=== PATIENT | male | born 1960 | race Caucasian/White ===

== ENCOUNTER 2022-08-12 05:55 | Outpatient (CLI) | payer BC, SELFPAY | END 2022-08-12 05:56 | disposition home or self-care (01) | LOC: AMB 08-14 06:42 | PROVIDERS: Visit Provider Internal Medicine | DX: R10.9 Unspecified abdominal pain (principal); R06.02 Shortness of breath | CPT/HCPCS: A0425; A0427 ==

== ENCOUNTER 2022-08-12 06:17 | Observation (INO) | payer BC, SELFPAY ==
[2022-08-12] VITALS (30 sets, daily range): BP systolic 119–142; BP diastolic 75–91; PULSE 62–98; RESP 20–24; TEMP 36.7–37.1; O2SAT 90–97; BMI 34.9
--- NOTE | 2022-08-12 06:27 | ED.ABDPAIN ---
HPI - Abdominal Pain General Chief Complaint: Abdominal Pain <Zach Truong MD - Last Filed: 08/12/22 06:36> Stated Complaint: Abdominal pain <Zach Turong MD - Last Filed: 08/12/22 06:36> Time Seen by Provider: 08/12/22 06:25 <Zach Truong MD - Last Filed: 08/12/22 06:36> History of Present Illness HPI narrative: Pt is a 61 year old gentleman who has a history of alcoholic cirrhosis who presents with 5 hours of mid abd pain. He has not smoked or drank alcohol for many years. Pt states that the pain is severe and does radiate to the midchest. Pt has had no fever or chills. No nausea, vomiting or change in his stools. Pt states the pain is sharp. He has had some minor shortness of breath as well. Pt does not take any prescription medications per his report and has been focusing on clean living. Pt had similar pain 3 weeks ago which lasted one day and went away on its own. Pt otherwise has been feeling fairly well. <Zach Truong MD - Last Filed: 08/12/22 06:36> Related Data Home Medications: Home Medications Medication Instructions Recorded Confirmed No Known Home Medications 08/12/22 08/12/22 <Zach Truong MD - Last Filed: 08/12/22 06:36> Allergies/Adverse Reactions: Allergies Allergy/AdvReac Type Severity Reaction Status Date / Time No Known Drug Allergies Allergy Verified 08/12/22 06:46 <Zach Truong MD - Last Filed: 08/12/22 06:36> Review of Systems Status of ROS Reports: 10 or more systems reviewed and unremarkable except as noted in History and below <Zach rTuong MD - Last Filed: 08/12/22 06:36> [facility] Medical History: Medical History Alcoholic cirrhosis <Zach Truong MD - Last Filed: 08/12/22 06:36> Social History: Social History Smoking Status: Former smoker Do you use any of these nicotine containing products: None Second hand tobacco smoke exposure: No How often do you have a drink containing alcohol: never How often do you have six or more drinks on one occasion: Never AUDIT-C Alcohol total score: 0 Non-prescribed substance use: denies use <Zach Truong MD - Last Filed: 08/12/22 06:36> Exam Narrative: Exam Narrative: EXAM GENERAL: Patient appears somewhat disheveled. EYES: No scleral icterus. LYMPH: No supraclavicular or cervical lymphadenopathy. SKIN: Visible skin seen during exam normal or with benign process only. EXT: No dependent lower extremity pedal edema. HEART: Regular rate and rhythm with no murmurs, rubs, or gallops. Distant heart tones LUNGS: Clear to auscultation bilaterally with no crackles or wheezes. Decreased breath sounds bilaterally ABD: Obese and distended with hypoactive bowel sounds noted. PSYCH: Good eye contact, speech is not pressured. <Zach Truong MD - Last Filed: 08/12/22 06:36> Const: Vital Signs, click to edit/add: Vital Signs - 24 hr 08/12/22 06:26 08/12/22 06:41 08/12/22 06:43 Temperature 98.1 F Pulse Rate 83 Pulse Rate [Right Pulse Oximeter] 98 80 Respiratory Rate 22 20 Blood Pressure Blood Pressure [Le ft Upper Arm] 134/87 124/77 Pulse Oximetry 97 96 96 Oxygen Delivery Me thod Room Air Room Air 08/12/22 06:45 08/12/22 07:00 08/12/22 07:02 Temperature Pulse Rate 88 77 84 Pulse Rate [Right Pulse Oximeter] Respiratory Rate Blood Pressure 121/75 Blood Pressure [Le ft Upper Arm] Pulse Oximetry 96 95 96 Oxygen Delivery Me thod 08/12/22 07:03 08/12/22 07:15 08/12/22 07:32 Temperature Pulse Rate 74 77 87 Pulse Rate [Right Pulse Oximeter] Respiratory Rate Blood Pressure Blood Pressure [Le ft Upper Arm] Pulse Oximetry 96 96 95 Oxygen Delivery Me thod 08/12/22 07:45 08/12/22 08:00 08/12/22 08:05 Temperature Pulse Rate 74 71 73 Pulse Rate [Right Pulse Oximeter] Respiratory Rate Blood Pressure Blood Pressure [Le ft Upper Arm] Pulse Oximetry 95 95 94 Oxygen Delivery Me thod 08/12/22 08:15 08/12/22 08:22 08/12/22 08:31 Temperature Pulse Rate 72 74 69 Pulse Rate [Right Pulse Oximeter] Respiratory Rate Blood Pressure 132/85 Blood Pressure [Le ft Upper Arm] Pulse Oximetry 96 97 95 Oxygen Delivery Me thod 08/12/22 08:32 08/12/22 08:45 08/12/22 09:00 Temperature Pulse Rate 71 62 71 Pulse Rate [Right Pulse Oximeter] Respiratory Rate Blood Pressure 133/91 H Blood Pressure [Le ft Upper Arm] Pulse Oximetry 95 95 95 Oxygen Delivery Me thod 08/12/22 09:02 08/12/22 09:15 08/12/22 09:30 Temperature Pulse Rate 72 78 68 Pulse Rate [Right Pulse Oximeter] Respiratory Rate Blood Pressure 134/90 H Blood Pressure [Le ft Upper Arm] Pulse Oximetry 94 95 93 Oxygen Delivery Me thod 08/12/22 09:32 08/12/22 09:45 08/12/22 10:00 Temperature Pulse Rate 73 72 74 Pulse Rate [Right Pulse Oximeter] Respiratory Rate Blood Pressure 142/86 H Blood Pressure [Le ft Upper Arm] Pulse Oximetry 95 97 97 Oxygen Delivery Me thod 08/12/22 10:02 Temperature Pulse Rate 66 Pulse Rate [Right Pulse Oximeter] Respiratory Rate Blood Pressure 136/85 Blood Pressure [Le ft Upper Arm] Pulse Oximetry 97 Oxygen Delivery Me thod <Zach Truong MD - Last Filed: 08/12/22 06:36> Vital Signs, click to edit/add: Vital Signs - 24 hr 08/12/22 06:26 08/12/22 06:41 08/12/22 06:43 Temperature 98.1 F Pulse Rate 83 Pulse Rate [Right Pulse Oximeter] 98 80 Respiratory Rate 22 20 Blood Pressure Blood Pressure [Le ft Upper Arm] 134/87 124/77 Pulse Oximetry 97 96 96 Oxygen Delivery Me thod Room Air Room Air 08/12/22 06:45 08/12/22 07:00 08/12/22 07:02 Temperature Pulse Rate 88 77 84 Pulse Rate [Right Pulse Oximeter] Respiratory Rate Blood Pressure 121/75 Blood Pressure [Le ft Upper Arm] Pulse Oximetry 96 95 96 Oxygen Delivery Me thod 08/12/22 07:03 08/12/22 07:15 08/12/22 07:32 Temperature Pulse Rate 74 77 87 Pulse Rate [Right Pulse Oximeter] Respiratory Rate Blood Pressure Blood Pressure [Le ft Upper Arm] Pulse Oximetry 96 96 95 Oxygen Delivery Me thod 08/12/22 07:45 08/12/22 08:00 08/12/22 08:05 Temperature Pulse Rate 74 71 73 Pulse Rate [Right Pulse Oximeter] Respiratory Rate Blood Pressure Blood Pressure [Le ft Upper Arm] Pulse Oximetry 95 95 94 Oxygen Delivery Me thod 08/12/22 08:15 08/12/22 08:22 08/12/22 08:31 Temperature Pulse Rate 72 74 69 Pulse Rate [Right Pulse Oximeter] Respiratory Rate Blood Pressure 132/85 Blood Pressure [Le ft Upper Arm] Pulse Oximetry 96 97 95 Oxygen Delivery Me thod 08/12/22 08:32 08/12/22 08:45 08/12/22 09:00 Temperature Pulse Rate 71 62 71 Pulse Rate [Right Pulse Oximeter] Respiratory Rate Blood Pressure 133/91 H Blood Pressure [Le ft Upper Arm] Pulse Oximetry 95 95 95 Oxygen Delivery Me thod 08/12/22 09:02 08/12/22 09:15 08/12/22 09:30 Temperature Pulse Rate 72 78 68 Pulse Rate [Right Pulse Oximeter] Respiratory Rate Blood Pressure 134/90 H Blood Pressure [Le ft Upper Arm] Pulse Oximetry 94 95 93 Oxygen Delivery Me thod 08/12/22 09:32 08/12/22 09:45 08/12/22 10:00 Temperature Pulse Rate 73 72 74 Pulse Rate [Right Pulse Oximeter] Respiratory Rate Blood Pressure 142/86 H Blood Pressure [Le ft Upper Arm] Pulse Oximetry 95 97 [facility] 10[facility]02 Temperature Pulse Rate 66 Pulse Rate [Right Pulse Oximeter] Respiratory Rate Blood Pressure 136/85 Blood Pressure [Le ft Upper Arm] Pulse Oximetry 97 Oxygen Delivery Me thod <Tanya Nobles MD - Last Filed: 08/12/22 11:28> Course Course Hospital Course: CT Chest PE study as well as abd and pelvis ordered as well as CBC, CMP, Amylase, Lactate, Urinalysis, Troponin, EKG, PT, PTT <Zach Truong MD - Last Filed: 08/12/22 06:36> Reevaluation(s) Reevaluation #1: Received sign-out for care this patient. CT scan done for diffuse pain showed distended gallbladder with multiple gallstones. Therefore proceed with right upper quadrant ultrasound. Ultrasound showed an enlarged gallbladder. I spoke to our surgeon Dr. Murrell, felt that the absence of stones was likely due to the size of the gallbladder. given that there is no evidence of cholecystitis, she did recommend that he be treated, however not necessarily emergently. I also spoke to our hospitalist Dr. Morales who was able to look through the patient's previous records-looks like he has had chronic abdominal pain for about a decade with multiple GI visits in the past. I spoke to the patient about his findings today and he told me that he has a hard time getting around at home given that he has chronic knee pain and back pain. He tells me that his house is very messy. Per nursing, patient arrived he was covered in feces. He tells me that he has a very difficult time making it to the bathroom. He does not have any friends or family in the area aside from 1 sister who sometimes is involved by visiting him. Had nursing ambulate the patient, he is able to take a couple steps by himself which are very labored, and then he needs assistance. At this time, I do not feel it is safe for the patient to go home as he is a fall risk and sounds like he has been having failure to thrive by himself at home. <Tanya Nobles MD - Last Filed: 08/12/22 11:28> Vital Signs Vital signs: Initial Vital Signs Temperature 98.1 F 08/12/22 06:26 Temperature Source Temporal Artery Scan 08/12/22 06:26 Pulse Rate 98 08/12/22 06:26 Pulse Rhythm 08/12/22 06:26 Respiratory Rate 22 08/12/22 06:26 Blood Pressure 134/87 08/12/22 06:26 Blood Pressure Mean 102 08/12/22 06:26 Blood Pressure Position Supine 08/12/22 06:26 Pulse Oximetry 97 08/12/22 06:26 Oxygen Delivery Method 08/12/22 06:26 Vital Signs Temperature 98.1 F 08/12/22 06:26 Pulse Rate 98 08/12/22 06:26 Respiratory Rate 22 08/12/22 06:26 Blood Pressure 134/87 02/18/23 06:26 Pulse Oximetry 97 08/12/22 06:26 Oxygen Delivery Method 08/12/22 06:26 Temperature 98.1 F 08/12/22 06:26 Pulse Rate 66 08/12/22 10:02 Respiratory Rate 20 08/12/22 06:41 Blood Pressure 136/85 08/12/22 10:02 Pulse Oximetry 97 08/12/22 10:02 Oxygen Delivery Method 08/12/22 06:41 <Zach Truong MD - Last Filed: 08/12/22 06:36> Initial Vital Signs Temperature 98.1 F 08/12/22 06:26 Temperature Source Temporal Artery Scan 08/12/22 06:26 Pulse Rate 98 08/12/22 06:26 Pulse Rhythm 08/12/22 06:26 Respiratory Rate 22 08/12/22 06:26 Blood Pressure 134/87 08/12/22 06:26 Blood Pressure Mean 102 08/12/22 06:26 Blood Pressure Position Supine 08/12/22 06:26 Pulse Oximetry 97 08/12/22 06:26 Oxygen Delivery Method 08/12/22 06:26 Vital Signs Temperature 98.1 F 08/12/22 06:26 Pulse Rate 98 08/12/22 06:26 Respiratory Rate 22 08/12/22 06:26 Blood Pressure 134/87 08/12/22 06:26 Pulse Oximetry 97 08/12/22 06:26 Oxygen Delivery Method 08/12/22 06:26 Temperature 98.1 F 08/12/22 06:26 Pulse Rate 66 08/12/22 10:02 Respiratory Rate 20 08/12/22 06:41 Blood Pressure 136/85 08/12/22 10:02 Pulse Oximetry 97 08/12/22 10:02 Oxygen Delivery Method 08/12/22 06:41 <Tanya Nobles MD - Last Filed: 08/12/22 11:28> MDM - Abdominal Pain MDM Narrative Medical decision making narrative: Chronic abdominal pain, gallstones, failure to thrive at home. At this time patient will be admitted for failure to thrive. Dr. Morales graciously accepted. <Tanya Nobles MD - Last Filed: 08/12/22 11:28> Medical Records Attestation: I reviewed the patient's medical records. <Tanya Nobles MD - Last Filed: 08/12/22 11:28> Lab Data Attestation: I reviewed the patient's lab results. <Tanya Nobles MD - Last Filed: 08/12/22 11:28> Labs: Lab Results 08/12/22 08/12/22 08/12/22 Range/Units 06:35 06:35 06:35 WBC 5.37 (4.50-11.00) K/uL RBC 4.68 (4.30-5.90) m/uL Hgb 14.4 (13.5-17.5) gm/dL Hct 44.4 (37.0-53.0) % MCV 95 (80-100) fL MCH 31 (26-34) pg MCHC 32 (32-36) gm/dL RDW Coeff of Cale 17.5 H (11.5-15.5) % Plt Count 107 L (140-440) K/uL Neut % (Auto) 52.6 (42.0-72.0) % Lymph % (Auto) 32.0 (20-44) % [place] % (Auto) 9.9 (0.0-11.0) % Eos % (Auto) 4.7 (0.0-7.0) % Baso % (Auto) 0.6 (0.0-3.0) % Neut # (Auto) 2.83 (1.7-7.0) K/uL Lymph # (Auto) 1.72 (0.90-2.90) K/uL [place] # (Auto) 0.50 (0.00-0.90) K/UL Eos # (Auto) 0.25 (0.00-0.50) K/uL Baso # (Auto) 0.03 (0.00-0.30) K/uL INR (0.91-1.10) APTT (23-33) Seconds Sodium 141 (135-149) mmol/L Potassium 4.2 (3.6-5.1) mmol/L Chloride 112 (96-114) mmol/L Carbon Dioxide 25 (20-32) mmol/L BUN 9 (7-30) mg/dL Creatinine 0.5 (0.5-1.5) mg/dL Estimated GFR 116 ml/min Glucose 132 H (60-115) mg/dL Lactate 2.0 H (0.5-1.9) mmol/L Calcium 8.7 (8.4-10.6) mg/dL Total Bilirubin 1.0 (0.1-1.5) mg/dL AST 83 H (12-35) U/L ALT 51 H (4-50) U/L Alkaline Phosphatase 111 (40-150) U/L Troponin I < 0.01 L (0.01-0.04) ng/mL NT-Pro-B Natriuret Pep pg/mL Total Protein 8.4 H (6.0-8.3) g/dL Albumin 3.3 (3.3-5.0) g/dL Amylase (18-89) U/L Lipase (23-300) U/L Urine Color (Yellow) Urine Appearance (Clear) Urine pH (5.0-8.5) Ur Specific [place] (1.000-1.030) Urine Protein (Negative) Urine Glucose (UA) (Negative) Urine Ketones (Negative) Urine Blood (Negative) Urine Nitrite (Negative) Urine Bilirubin (Negative) Urine Urobilinogen (0.2-1.0) Ur Leukocyte Esterase (Negative) Urine RBC (0-2) Urine WBC (0-5) Ur Squamous Epith Cells (None-Few) Urine Bacteria (None) 08/12/22 08/12/22 08/12/22 Range/Units 06:35 06:35 06:35 WBC (4.50-11.00) K/uL RBC (4.30-5.90) m/uL Hgb (13.5-17.5) gm/dL Hct (37.0-53.0) % MCV (80-100) fL MCH (26-34) pg MCHC (32-36) gm/dL RDW Coeff of Cale (11.5-15.5) % Plt Count (140-440) K/uL Neut % (Auto) (42.0-72.0) % Lymph % (Auto) (20-44) % [place] % (Auto) (0.0-11.0) % Eos % (Auto) (0.0-7.0) % Baso % (Auto) (0.0-3.0) % Neut # (Auto) (1.7-7.0) K/uL Lymph # (Auto) (0.90-2.90) K/uL [place] # (Auto) (0.00-0.90) K/UL Eos # (Auto) (0.00-0.50) K/uL Baso # (Auto) (0.00-0.30) K/uL INR 1.16 H (0.91-1.10) APTT 30 (23-33) Seconds Sodium (135-149) mmol/L Potassium (3.6-5.1) mmol/L Chloride (96-114) mmol/L Carbon Dioxide (20-32) mmol/L BUN (7-30) mg/dL Creatinine (0.5-1.5) mg/dL Estimated GFR ml/min Glucose (60-115) mg/dL Lactate (0.5-1.9) mmol/L Calcium (8.4-10.6) mg/dL Total Bilirubin (0.1-1.5) mg/dL AST (12-35) U/L ALT (4-50) U/L Alkaline Phosphatase (40-150) U/L Troponin I (0.01-0.04) ng/mL NT-Pro-B Natriuret Pep pg/mL Total Protein (6.0-8.3) g/dL Albumin (3.3-5.0) g/dL Amylase 97 H (18-89) U/L Lipase 287 (23-300) U/L Urine Color (Yellow) Urine Appearance (Clear) Urine pH (5.0-8.5) Ur Specific [place] (1.000-1.030) Urine Protein (Negative) Urine Glucose (UA) (Negative) Urine Ketones (Negative) Urine Blood (Negative) Urine Nitrite (Negative) Urine Bilirubin (Negative) Urine Urobilinogen (0.2-1.0) Ur Leukocyte Esterase (Negative) Urine RBC (0-2) Urine WBC (0-5) Ur Squamous Epith Cells (None-Few) Urine Bacteria (None) 08/12/22 08/12/22 08/12/22 Range/Units 06:35 09:49 10:30 WBC (4.50-11.00) K/uL RBC (4.30-5.90) m/uL Hgb (13.5-17.5) gm/dL Hct (37.0-53.0) % MCV (80-100) fL MCH (26-34) pg MCHC (32-36) gm/dL RDW Coeff of Cale (11.5-15.5) % Plt Count (140-440) K/uL Neut % (Auto) (42.0-72.0) % Lymph % (Auto) (20-44) % [place] % (Auto) (0.0-11.0) % Eos % (Auto) (0.0-7.0) % Baso % (Auto) (0.0-3.0) % Neut # (Auto) (1.7-7.0) K/uL Lymph # (Auto) (0.90-2.90) K/uL [place] # (Auto) (0.00-0.90) K/UL Eos # (Auto) (0.00-0.50) K/uL Baso # (Auto) (0.00-0.30) K/uL INR (0.91-1.10) APTT (23-33) Seconds Sodium (135-149) mmol/L Potassium (3.6-5.1) mmol/L Chloride (96-114) mmol/L Carbon Dioxide (20-32) mmol/L BUN (7-30) mg/dL Creatinine (0.5-1.5) mg/dL Estimated GFR ml/min Glucose (60-115) mg/dL Lactate 1.2 (0.5-1.9) mmol/L Calcium (8.4-10.6) mg/dL Total Bilirubin (0.1-1.5) mg/dL AST (12-35) U/L ALT (4-50) U/L Alkaline Phosphatase (40-150) U/L Troponin I (0.01-0.04) ng/mL NT-Pro-B Natriuret Pep < 20 pg/mL Total Protein (6.0-8.3) g/dL Albumin (3.3-5.0) g/dL Amylase (18-89) U/L Lipase (23-300) U/L Urine Color Yellow (Yellow) Urine Appearance Clear (Clear) Urine pH 7.0 (5.0-8.5) Ur Specific [place] 1.015 (1.000-1.030) Urine Protein Negative (Negative) Urine Glucose (UA) Negative (Negative) Urine Ketones Negative (Negative) Urine Blood Trace-intact A (Negative) Urine Nitrite Negative (Negative) Urine Bilirubin Negative (Negative) Urine Urobilinogen 0.2 (0.2-1.0) Ur Leukocyte Esterase Negative (Negative) Urine RBC 0-2 (0-2) Urine WBC 0-2 (0-5) Ur Squamous Epith Cells Few (None-Few) Urine Bacteria Few A (None) <Zach Truong MD - Last Filed: 08/12/22 06:36> Lab Results 08/12/22 08/12/22 08/12/22 Range/Units 06:35 06:35 06:35 WBC 5.37 (4.50-11.00) K/uL RBC 4.68 (4.30-5.90) m/uL Hgb 14.4 (13.5-17.5) gm/dL Hct 44.4 (37.0-53.0) % MCV 95 (80-100) fL MCH 31 (26-34) pg MCHC 32 (32-36) gm/dL RDW Coeff of [place]ale 17.5 H (11.5-15.5) % Plt Count 107 L (140-440) K/uL Neut % (Auto) 52.6 (42.0-72.0) % Lymph % (Auto) 32.0 (20-44) % [place] % (Auto) 9.9 (0.0-11.0) % Eos % (Auto) 4.7 (0.0-7.0) % Baso % (Auto) 0.6 (0.0-3.0) % Neut # (Auto) 2.83 (1.7-7.0) K/uL Lymph # (Auto) 1.72 (0.90-2.90) K/uL [place] # (Auto) 0.50 (0.00-0.90) K/UL Eos # (Auto) 0.25 (0.00-0.50) K/uL Baso # (Auto) 0.03 (0.00-0.30) K/uL INR (0.91-1.10) APTT (23-33) Seconds Sodium 141 (135-149) mmol/L Potassium 4.2 (3.6-5.1) mmol/L Chloride 112 (96-114) mmol/L Carbon Dioxide 25 (20-32) mmol/L BUN 9 (7-30) mg/dL Creatinine 0.5 (0.5-1.5) mg/dL Estimated GFR 116 ml/min Glucose 132 H (60-115) mg/dL Lactate 2.0 H (0.5-1.9) mmol/L Calcium 8.7 (8.4-10.6) mg/dL Total Bilirubin 1.0 (0.1-1.5) mg/dL AST 83 H (12-35) U/L ALT 51 H (4-50) U/L Alkaline Phosphatase 111 (40-150) U/L Troponin I < 0.01 L (0.01-0.04) ng/mL NT-Pro-B Natriuret Pep pg/mL Total Protein 8.4 H (6.0-8.3) g/dL Albumin 3.3 (3.3-5.0) g/dL Amylase (18-89) U/L Lipase (23-300) U/L Urine Color (Yellow) Urine Appearance (Clear) Urine pH (5.0-8.5) Ur Specific [place] (1.000-1.030) Urine Protein (Negative) Urine Glucose (UA) (Negative) Urine Ketones (Negative) Urine Blood (Negative) Urine Nitrite (Negative) Urine Bilirubin (Negative) Urine Urobilinogen (0.2-1.0) Ur Leukocyte Esterase (Negative) Urine RBC (0-2) Urine WBC (0-5) Ur Squamous Epith Cells (None-Few) Urine Bacteria (None) 08/12/22 08/12/22 08/12/22 Range/Units 06:35 06:35 06:35 WBC (4.50-11.00) K/uL RBC (4.30-5.90) m/uL Hgb (13.5-17.5) gm/dL Hct (37.0-53.0) % MCV (80-100) fL MCH (26-34) pg MCHC (32-36) gm/dL RDW Coeff of [place]ale (11.5-15.5) % Plt Count (140-440) K/uL Neut % (Auto) (42.0-72.0) % Lymph % (Auto) (20-44) % [place] % (Auto) (0.0-11.0) % Eos % (Auto) (0.0-7.0) % Baso % (Auto) (0.0-3.0) % Neut # (Auto) (1.7-7.0) K/uL Lymph # (Auto) (0.90-2.90) K/uL [place] # (Auto) (0.00-0.90) K/UL Eos # (Auto) (0.00-0.50) K/uL Baso # (Auto) (0.00-0.30) K/uL INR 1.16 H (0.91-1.10) APTT 30 (23-33) Seconds Sodium (135-149) mmol/L Potassium (3.6-5.1) mmol/L Chloride (96-114) mmol/L Carbon Dioxide (20-32) mmol/L BUN (7-30) mg/dL Creatinine (0.5-1.5) mg/dL Estimated GFR ml/min Glucose (60-115) mg/dL Lactate (0.5-1.9) mmol/L Calcium (8.4-10.6) mg/dL Total Bilirubin (0.1-1.5) mg/dL AST (12-35) U/L ALT (4-50) U/L Alkaline Phosphatase (40-150) U/L Troponin I (0.01-0.04) ng/mL NT-Pro-B Natriuret Pep pg/mL Total Protein (6.0-8.3) g/dL Albumin (3.3-5.0) g/dL Amylase 97 H (18-89) U/L Lipase 287 (23-300) U/L Urine Color (Yellow) Urine Appearance (Clear) Urine pH (5.0-8.5) Ur Specific [place] (1.000-1.030) Urine Protein (Negative) Urine Glucose (UA) (Negative) Urine Ketones (Negative) Urine Blood (Negative) Urine Nitrite (Negative) Urine Bilirubin (Negative) Urine Urobilinogen (0.2-1.0) Ur Leukocyte Esterase (Negative) Urine RBC (0-2) Urine WBC (0-5) Ur Squamous Epith Cells (None-Few) Urine Bacteria (None) 02/08/12/22 08/12/22 Range/Units 06:35 09:49 10:30 WBC (4.50-11.00) K/uL RBC (4.30-5.90) m/uL Hgb (13.5-17.5) gm/dL Hct (37.0-53.0) % MCV (80-100) fL MCH (26-34) pg MCHC (32-36) gm/dL RDW Coeff of [place]ale (11.5-15.5) % Plt Count (140-440) K/uL Neut % (Auto) (42.0-72.0) % Lymph % (Auto) (20-44) % [place] % (Auto) (0.0-11.0) % Eos % (Auto) (0.0-7.0) % Baso % (Auto) (0.0-3.0) % Neut # (Auto) (1.7-7.0) K/uL Lymph # (Auto) (0.90-2.90) K/uL [place] # (Auto) (0.00-0.90) K/UL Eos # (Auto) (0.00-0.50) K/uL Baso # (Auto) (0.00-0.30) K/uL INR (0.91-1.10) APTT (23-33) Seconds Sodium (135-149) mmol/L Potassium (3.6-5.1) mmol/L Chloride (96-114) mmol/L Carbon Dioxide (20-32) mmol/L BUN (7-30) mg/dL Creatinine (0.5-1.5) mg/dL Estimated GFR ml/min Glucose (60-115) mg/dL Lactate 1.2 (0.5-1.9) mmol/L Calcium (8.4-10.6) mg/dL Total Bilirubin (0.1-1.5) mg/dL AST (12-35) U/L ALT (4-50) U/L Alkaline Phosphatase (40-150) U/L Troponin I (0.01-0.04) ng/mL NT-Pro-B Natriuret Pep < 20 pg/mL Total Protein (6.0-8.3) g/dL Albumin (3.3-5.0) g/dL Amylase (18-89) U/L Lipase (23-300) U/L Urine Color Yellow (Yellow) Urine Appearance Clear (Clear) Urine pH 7.0 (5.0-8.5) Ur Specific [place] 1.015 (1.000-1.030) Urine Protein Negative (Negative) Urine Glucose (UA) Negative (Negative) Urine Ketones Negative (Negative) Urine Blood Trace-intact A (Negative) Urine Nitrite Negative (Negative) Urine Bilirubin Negative (Negative) Urine Urobilinogen 0.2 (0.2-1.0) Ur Leukocyte Esterase Negative (Negative) Urine RBC 0-2 (0-2) Urine WBC 0-2 (0-5) Ur Squamous Epith Cells Few (None-Few) Urine Bacteria Few A (None) <Tanya Nobles MD - Last Filed: 08/12/22 11:28> Imaging Data CT Chest/Ab/Pelvis: Attestation: I have reviewed the pertinent imaging results. <Tanya Nobles MD - Last Filed: 08/12/22 11:28> Radiologist's impression: CT examination of the chest, abdomen and pelvis was performed following the uneventful intravenous administration of 95 cc of Isovue 3 7. Thin section axial images were obtained from the thoracic inlet through the pubic symphysis.? Oral contrast was not administered. The chest portion of the examination was performed as a CT pulmonary angiogram. Please note that all CT scans at this facility use dose modulation, iterative reconstruction, and/or weight-based dosing when appropriate to reduce radiation dose to as low as reasonably achievable. FINDINGS: CHEST: There is no mediastinal or hilar adenopathy or mass. There is no pericardial effusion. There is mild fusiform dilatation of the ascending aorta at 3.9 centimeters. The lungs show no focal consolidation, infiltrate or mass. Trace basilar atelectasis. No pleural effusion or pneumothorax. PULMONARY ARTERY DISTRIBUTION: No finding of acute pulmonary embolus. ABDOMEN AND PELVIS: LIVER/BILIARY SYSTEM:Normal sized liver. No focal mass. Mild prominence of the caudate lobe and mild nodular configuration of the serosal contour is raising the possibility of cirrhosis.The gallbladder is significantly distended. There are numerous stones 1 which appears to be in the cystic duct. No wall thickening or pericholecystic fluid. Sonography is advised for further characterization ADRENALS: Normal KIDNEYS, URETERS and BLADDER:Kidneys normal in size. Low-density lesions noted probably cysts though too small to fully characterize. Right lower pole renal calculus but no evidence of current or recent obstructive uropathy. The bladder is unremarkable SPLEEN:Normal appearance. PANCREAS: Appears normal. RETROPERITONEUM and MESENTERY: There is no mass, adenopathy or aortic aneurysm. Atherosclerotic vascular calcifications GASTROINTESTINAL SYSTEM: There is no evidence of diverticulitis, colitis, mechanical obstruction, or appendicitis. The small bowel as visualized appears normal.Fecal retention. Diverticulosis. PELVIS: No mass, adenopathy or free fluid. OSSEOUS STRUCTURES and ABDOMINAL WALL: There is an age-appropriate appearance of the osseous structures.Ventral hernia pending fat. OTHER: No free fluid or free air. IMPRESSION: 1. CHEST: Trace basilar atelectasis. Mildly dilated ascending aorta 2. PULMONARY ARTERY DISTRIBUTION: No indication of acute pulmonary embolus. 3. ABDOMEN AND PELVIS: Significantly distended gallbladder but no wall thickening. Stones, including a stone like the in the cystic duct. Sonography is advised. Fecal retention. Diverticulosis. Fat containing ventral hernia. 4. Other incidental nonacute appearing findings as above <Tanya Nobles MD - Last Filed: 08/12/22 11:28> Ultrasound abdomen: Attestation: I have reviewed the pertinent imaging results. <Tanya Nobles MD - Last Filed: 08/12/22 11:28> Radiologist's impression: INDICATION: Characterize gallstones seen on CT. COMPARISON: CT same date. FINDINGS: No gallbladder wall thickening. Common bile duct 5 mm at the hunter hepatis. No demonstrable stones. Size of gallbladder is enlarged with greatest documented length 13 cm. Difficult sonographic window due to body habitus and bowel gas. Known dependent stones from the CT are not demonstrated on this exam. No sonographic [place] sign but body habitus is limiting. IMPRESSION: 1. Enlarged gallbladder. No common bile duct dilatation. Known stones not seen on this exam. No findings for acute cholecystitis. Limited by body habitus and bowel gas. <Tanya Nobles MD - Last Filed: 08/12/22 11:28> ECG Data Attestation: I personally reviewed and interpreted this ECG as follows: (Normal sinus rhythm, right bundle-branch block, pulse 94) <Tanya Nobles MD - Last Filed: 08/12/22 11:28> Discharge Plan Discharge Clinical Impression: Adult failure to thrive, Abdominal pain, Cholelithiasis <Zach Truong MD - Last Filed: 08/12/22 06:36> Patient Disposition: Admitted As Inpatient <Zach Truong MD - Last Filed: 08/12/22 06:36> Condition: Stable <Zach Truong MD - Last Filed: 08/12/22 06:36> Additional Instructions: You need to have an outpatient appointment with a GI specialist to discuss your gallstones. Return to the ER if you develop vomiting or fevers. <Zach Truong MD - Last Filed: 08/12/22 06:36> Prescriptions: No Action No Known Home Medications <Zach Truong MD - Last Filed: 08/12/22 06:36> Follow Up/Referrals: Provider,Not a Local [Primary Care Provider] - <Zach Truong MD - Last Filed: 08/12/22 06:36> Stand Alone Forms: [facility] Info Instructions <Zach Truong MD - Last Filed: 08/12/22 06:36>
[2022-08-12 06:42] LABS: Basophils Absolute Auto 0.03 K/uL (0.00-0.30); Basophils Percent Auto 0.6 % (0.0-3.0); Eosinophils Absolute Auto 0.25 K/uL (0.00-0.50); Eosinophils Percent Auto 4.7 % (0.0-7.0); Hematocrit 44.4 % (37.0-53.0); Hemoglobin* 14.4 gm/dL (13.5-17.5); Immature Granulocytes Abs Auto 0.01 K/uL (0.00-0.30); Immature Granulocytes Pct Auto 0.2 %; Lymphocytes Absolute Auto 1.72 K/uL (0.90-2.90); Mean Corpuscular HGB Conc 32 gm/dL (32-36); Mean Corpuscular Hemoglobin 31 pg (26-34); Mean Corpuscular Volume 95 fL (80-100); Monocytes Percent Auto 9.9 % (0.0-11.0); Neutrophils Absolute Auto 2.83 K/uL (1.7-7.0); Neutrophils Percent Auto 52.6 % (42.0-72.0); Platelet Count* 107 K/uL (140-440); RDW Coefficient of Variation % 17.5 % (11.5-15.5); Red Blood Count 4.68 m/uL (4.30-5.90); White Blood Count* 5.37 K/uL (4.50-11.00)
[2022-08-12 06:44] LABS: Slide Review Reflex No
[2022-08-12] MEDS: KETOROLAC 30 MG/ML inj IVP (06:46)
[2022-08-12] MEDS: 0.9 % SODIUM CHLORIDE 1000 ml 1,000 ML IV (06:46)
[2022-08-12 07:01] LABS: Albumin* 3.3 g/dL (3.3-5.0); Chloride* 112 mmol/L (96-114); Partial Thromboplastin Time* 30 Seconds (23-33); Potassium* 4.2 mmol/L (3.6-5.1); Sodium* 141 mmol/L (135-149)
[2022-08-12 07:03] LABS: Creatinine* 0.5 mg/dL (0.5-1.5); Estimated Glomerular Filt Rate 116 ml/min
[2022-08-12 07:04] LABS: Alanine Aminotransferase* 51 U/L (4-50); Alkaline Phosphatase* 111 U/L (40-150); Aspartate Amino Transferase* 83 U/L (12-35); Blood Urea Nitrogen* 9 mg/dL (7-30); Calcium* 8.7 mg/dL (8.4-10.6); Carbon Dioxide* 25 mmol/L (20-32); Glucose* 132 mg/dL (60-115); Total Protein* 8.4 g/dL (6.0-8.3)
[2022-08-12 07:06] LABS: Prothrombin Time 15.5 Seconds
[2022-08-12 07:08] LABS: INR 1.16 (0.91-1.10)
[2022-08-12 07:19] LABS: Troponin I* < 0.01 ng/mL (0.01-0.04)
[2022-08-12 07:52] LABS: Lipase* 287 U/L (23-300)
[2022-08-12 07:53] LABS: Amylase* 97 U/L (18-89)
--- NOTE | 2022-08-12 08:07 | CRLHL7_ITS ---
For Patients: As a result of the Century Cures Act, medical imaging exams and procedure reports are released immediately into your electronic medical record. You may view this report before your referring provider. If you have questions, please contact your health care provider. INDICATION: Characterize gallstones seen on CT. COMPARISON: CT same date. FINDINGS: No gallbladder wall thickening. Common bile duct 5 mm at the hunter hepatis. No demonstrable stones. Size of gallbladder is enlarged with greatest documented length 13 cm. Difficult sonographic window due to body habitus and bowel gas. Known dependent stones from the CT are not demonstrated on this exam. No sonographic [place] sign but body habitus is limiting. IMPRESSION: 1. Enlarged gallbladder. No common bile duct dilatation. Known stones not seen on this exam. No findings for acute cholecystitis. Limited by body habitus and bowel gas. Dictated by Christos Pearce MD @ 08/12/2022 9:13:36 AM (Electronically Signed)
[2022-08-12] MEDS: HYDROmorphone 0.5 mg/0.5 ml inj IVP (08:22)
--- NOTE | 2022-08-12 08:33 | ED.NURSE ---
Dr. Nobles updated Pt complaining of RLQ pain, back pain, and L knee pain.
--- NOTE | 2022-08-12 08:40 | ED.NURSE ---
call to lab to run bnp
[2022-08-12 09:15] LABS: NT Pro B Type NatriureticPept* < 20 pg/mL
[2022-08-12 09:55] LABS: Appearance Urine Clear (Clear); Bilirubin Urine Negative (Negative); Blood Urine Trace-intact (Negative); Color Urine Yellow (Yellow); Glucose Urine Negative (Negative); Ketones Urine Negative (Negative); Leukocyte Esterase Urine Negative (Negative); Nitrite Urine Negative (Negative); Protein Urine Negative (Negative); Specific Gravity Urine 1.015 (1.000-1.030); Urobilinogen Urine 0.2 (0.2-1.0)
[2022-08-12 10:24] LABS: Bacteria Urine Few; RBC Urine 0-2 (0-2); Squamous Epithelial Cell Urine Few (None-Few); WBC Urine 0-2 (0-5)
[2022-08-12 10:37] LABS: Lactate* 1.2 mmol/L (0.5-1.9)
--- NOTE | 2022-08-12 11:00 | ED.NURSE ---
Rug Underlay Machine Operator did assist Pt to ambulate to hallway using gait belt and walker. Pt limped on L leg and not stable enough to ambulate from the street into his house independently. Pt has a cane at home but not a walker. Dr. Nobles updated.
--- NOTE | 2022-08-12 11:24 | CRLHL7_ITS ---
For Patients: As a result of the Century Cures Act, medical imaging exams and procedure reports are released immediately into your electronic medical record. You may view this report before your referring provider. If you have questions, please contact your health care provider. INDICATION: Pain. COMPARISON: None available. FINDINGS: The left knee was examined with AP, lateral, and sunrise views for a total of three views. There is no sign of fracture or dislocation. There is mild primary osteoarthritis of the medial joint compartment with mild joint space narrowing and minimal marginal osteophyte formation. The lateral joint compartment is normal in appearance. There is mild primary osteoarthritis at the patellofemoral articulation with mild joint space narrowing and mild marginal osteophyte formation. There is no sign of a joint effusion. No soft tissue abnormality is seen. 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 Dictated by Donovan Maldonado MD @ 08/12/2022 12:18:08 PM (Electronically Signed)
[2022-08-12 12:19] LABS: SARS PCR* Negative SARS-CoV-2 (Negative)
--- NOTE | 2022-08-12 12:19 | W.PC.EDHO ---
Primary Language: Preferred Language: Orientation Status: [x] Alert & Oriented [] Slight Confusion [] Known Dx Dementia Transfers By: [x] Assist of 1 [] Assist of 2 [] Lift Active Medications Generic Name Dose Route Start Last Admin Trade Name Kishore PRN Reason Stop Dose Admin Hydromorphone HCl 0.5 mg 08/12/22 08:10 08/12/22 08:22 Hydromorphone 0.5 Mg/0.5 Ml Inj IVP 0.5 mg ONCE PRN Administration Discontinued Medications Generic Name Dose Route Start Last Admin Trade Name Kishore PRN Reason Stop Dose Admin Sodium Chloride 1,000 mls @ 1,000 mls/hr 08/12/22 06:40 08/12/22 08:00 0.9 % Sodium Chloride 1000 Ml IV 08/12/22 07:39 Infused .Q1H SUSAN Infusion Ketorolac Tromethamine 30 mg 08/12/22 06:40 08/12/22 06:46 Ketorolac 30 Mg/Ml Inj IVP 08/12/22 06:41 30 mg ONCE ONE Administration Description of Symptoms ED Triage Present Problem /Patient called 911 due to shortness of breath, Description but upon arrival of EMS states primary concern is right sided abdominal pain related to cirrosis of the liver, which he has had for 7 years. Upon arrival to the ED, patient relays these concerns but focuses more on chronic knee and back pain that make ambulation difficult. patient also states of psycho-social stressors and depression. When asked what his primary health concern is today, he states all of it. rated pain 9/10 for EMS, but declined analgesia. Told EMS he quit smoking 4 years ago, but tells Dr. Truong it was 3 days ago. Pain Pain Intensity [Right Abdomen] 9 Pain Intensity 9 Pain Scale Used [Right Abdomen Numeric (1 - 10) ] Pain Scale Used Numeric (1 - 10) Oxygen Administration Pulse Oximetry 97 Pulse Oximetry 97 Pulse Oximetry 97 Pulse Oximetry 95 Pulse Oximetry 93 Pulse Oximetry 95 Pulse Oximetry 94 Pulse Oximetry 95 Pulse Oximetry 95 Pulse Oximetry 95 Pulse Oximetry 95 Pulse Oximetry 97 Pulse Oximetry 96 Pulse Oximetry 94 Pulse Oximetry 95 Pulse Oximetry 95 Pulse Oximetry 95 Pulse Oximetry 96 Pulse Oximetry 96 Pulse Oximetry 96 Pulse Oximetry 95 Pulse Oximetry 96 Pulse Oximetry 96 Pulse Oximetry 96 Pulse Oximetry 97 Oxygen Delivery Method Room Air Oxygen Delivery Method Room Air Cardiac Monitoring EKG Method 12 Lead
[2022-08-12 13:23] LABS: Magnesium* 1.8 mg/dL (1.5-2.6)
--- NOTE | 2022-08-12 13:23 | P.IMHP_ITS ---
Hospitalist- H&P: HPI History of Present Illness Date Seen: 08/12/22 Chief complaint: Abdominal pain Narrative: Juno Klein is a 61 year old male admitted through the emergency department with multiple medical problems. He primarily came in because he was having acute worsening of his chronic abdominal pain. He reports right upper quadrant abdominal pain which is chronic but has been worse recently. Nothing he does seem to make it better or worse. 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 He is been sober for more than 3 years. He is also known to have cholelithiasis without cholecystitis or choledocholithiasis. He is also known to have chronic abdominal pain for more than 10 years and for which a specific diagnosis or treatment has not been identified. He carries a diagnosis of hepatitis C but is not aware of ever being treated for it. He also reports chest pain which has been present for at least a year. He has exertional dyspnea with this as well. Nothing clearly makes the chest pain better. He has never been diagnosed with coronary disease, pulmonary embolism, chronic lung disease. He has been treated for gastroesophageal reflux in the past. He has had knee pain on the left side for about 3 months. Reports his knee occasionally locks up. When he walks he gets cracking sensation is knee and once in while will give way. He has not had any injury to his knee that he is aware of. Is very painful and difficult for him to walk because of his knee pain. He has chronic low back pain and chronic neck pain, longstanding. He is not aware of any focal neurologic problems or radiation of his pain. He does have neuropathy in both feet which is also longstanding. With his chronic knee pain and chronic back pain he is having difficulty walking. In the emergency room he was unable to stand and walk today. Review of Systems Narrative: He reports symptoms of depression. He also reports feeling like his memory is getting worse. He has not had a fever. No focal neurologic problems. No syncope. Chest pain and dyspnea as above. No new cough. Chronic abdominal pain as above. He has been able to eat and drink. He has some tendency towards constipation. No blood in his stool. Intermittently gets lower extremity edema when he is been sitting up or standing for a long time. [facility] Medical History (Updated 08/12/22 @ 13:23 by Fawad Morales MD) Abdominal pain Adult failure to thrive Alcoholic cirrhosis Chest pain Cholelithiasis Depression Esophageal abnormality Exertional dyspnea Financial difficulties Hepatitis C Left forearm fracture Left knee pain Low back pain Social isolation Surgical History History of failed repair of rotator cuff Social History (Updated 08/12/22 @ 13:31 by Fawad Morales MD) Narrative: He lives alone in [facility]. His girlfriend has left him. He has no contact with his daughter. His sister, Noemy, lives in [place] but is not in close contact with him. He indicates she would be healthcare power of staff attorney. Code status is DNR. He is not working. [facility] He has considered getting on disability. He does not have a personal physician. Remote history of being a patient at [facility] Smoking Status: Former smoker Do you use any of these nicotine containing products: None Second hand tobacco smoke exposure: No How often do you have a drink containing alcohol: never How often do you have six or more drinks on one occasion: Never AUDIT-C Alcohol total score: 0 Non-prescribed substance use: denies use Meds Home Medications and Allergies Home Medications Medication Instructions Recorded Confirmed Type No Known Home Medications 08/12/22 08/12/22 History Allergies Allergy/AdvReac Type Severity Reaction Status Date / Time No Known Drug Allergies Allergy Verified 08/12/22 06:46 Exam Narrative: Exam Narrative: He is alert and appears in no distress. He is somewhat ill-kempt. Eyes are normal. Extraocular movements are full. Visual murcia intact. No scleral icterus. Oropharynx with marked dental loss. Dry mucous membranes. Neck is supple without mass or adenopathy. Respirations are clear to auscultation. He has mildly diminished breath sounds without wheezing, rales or rhonchi. Cardiovascular: S1, S2, regular rate and rhythm. No murmur gallop or rub. Abdomen: Bowel sounds are active. Abdomen is somewhat distended. He has mild right upper quadrant tenderness. I cannot identify a mass. External genitalia normal. Extremities with 1+ edema in both ankles. Has mild venous stasis skin changes. He has intact pedal pulses. He is mostly absent sensation in his feet. He moves both lower extremities and upper extremities fairly well. No obvious tremor or asterixis. Const: Vital Signs, click to edit/add: Vital Signs - 24 hr 08/12/22 06:26 08/12/22 06:41 08/12/22 06:43 Temperature 98.1 F Pulse Rate 83 Pulse Rate [Right Pulse Oximeter] 98 80 Respiratory Rate 22 20 Blood Pressure Blood Pressure [Le ft Upper Arm] 134/87 124/77 Pulse Oximetry 97 96 96 Oxygen Delivery Me thod Room Air Room Air 08/12/22 06:45 08/12/22 07:00 08/12/22 07:02 Temperature Pulse Rate 88 77 84 Pulse Rate [Right Pulse Oximeter] Respiratory Rate Blood Pressure 121/75 Blood Pressure [Le ft Upper Arm] Pulse Oximetry 96 95 96 Oxygen Delivery Me thod 08/12/22 07:03 08/12/22 07:15 08/12/22 07:32 Temperature Pulse Rate 74 77 87 Pulse Rate [Right Pulse Oximeter] Respiratory Rate Blood Pressure Blood Pressure [Le ft Upper Arm] Pulse Oximetry 96 96 95 Oxygen Delivery Me thod 08/12/22 07:45 08/12/22 08:00 08/12/22 08:05 Temperature Pulse Rate 74 71 73 Pulse Rate [Right Pulse Oximeter] Respiratory Rate Blood Pressure Blood Pressure [Le ft Upper Arm] Pulse Oximetry 95 95 94 Oxygen Delivery Me thod 08/12/22 08:15 08/12/22 08:22 08/12/22 08:31 Temperature Pulse Rate 72 74 69 Pulse Rate [Right Pulse Oximeter] Respiratory Rate Blood Pressure 132/85 Blood Pressure [Le ft Upper Arm] Pulse Oximetry 96 97 95 Oxygen Delivery Me thod 08/12/22 08:32 08/12/22 08:45 08/12/22 09:00 Temperature Pulse Rate 71 62 71 Pulse Rate [Right Pulse Oximeter] Respiratory Rate Blood Pressure 133/91 H Blood Pressure [Le ft Upper Arm] Pulse Oximetry 95 95 95 Oxygen Delivery Me thod 08/12/22 09:02 08/12/22 09:15 08/12/22 09:30 Temperature Pulse Rate 72 78 68 Pulse Rate [Right Pulse Oximeter] Respiratory Rate Blood Pressure 134/90 H Blood Pressure [Le ft Upper Arm] Pulse Oximetry 94 95 93 Oxygen Delivery Me thod 08/12/22 09:32 08/12/22 09:45 08/12/22 10:00 Temperature Pulse Rate 73 72 74 Pulse Rate [Right Pulse Oximeter] Respiratory Rate Blood Pressure 142/86 H Blood Pressure [Le ft Upper Arm] Pulse Oximetry 95 97 97 Oxygen Delivery Me thod 08/12/22 10:02 Temperature Pulse Rate 66 Pulse Rate [Right Pulse Oximeter] Respiratory Rate Blood Pressure 136/85 Blood Pressure [Le ft Upper Arm] Pulse Oximetry 97 Oxygen Delivery Me thod Documenting provider has reviewed patient's vital signs: yes Hospitalist - H&P: Result Labs Labs: Short CBC 08/12/22 Range/Units 06:35 WBC 5.37 (4.50-11.00) K/uL Hgb 14.4 (13.5-17.5) gm/dL Hct 44.4 (37.0-53.0) % Plt Count 107 L (140-440) K/uL BMP 08/12/22 06:35 Sodium 141 Potassium 4.2 Chloride 112 Carbon Dioxide 25 BUN 9 Creatinine 0.5 Glucose 132 H Calcium 8.7 Cardiac Enzymes 08/12/22 Range/Units 06:35 Troponin I < 0.01 L (0.01-0.04) ng/mL Liver Function 08/12/22 Range/Units 06:35 Total Bilirubin 1.0 (0.1-1.5) mg/dL AST 83 H (12-35) U/L ALT 51 H (4-50) U/L Alkaline Phosphatase 111 (40-150) U/L Albumin 3.3 (3.3-5.0) g/dL Urine 08/12/22 Range/Units 09:49 Urine Color Yellow (Yellow) Urine Appearance Clear (Clear) Urine pH 7.0 (5.0-8.5) Ur Specific [place] 1.015 (1.000-1.030) Urine Protein Negative (Negative) Urine Glucose (UA) Negative (Negative) Assessment and Plan Assessment and plan (1) Abdominal pain: Problem comment: Acute on chronic for more than 10 years Status: Acute (2) Chest pain: Problem comment: Chronic Status: Acute (3) Exertional dyspnea: Status: Acute (4) Cholelithiasis: Problem comment: Present for more than 10 years. Status: Acute (5) Alcoholic cirrhosis: Problem comment: Abstinent from alcohol for at least 3 years Status: Acute (6) Adult failure to thrive: Status: Acute (7) Hepatitis C: Problem comment: Apparently never treated Status: Acute (8) Left knee pain: Problem comment: Acute on chronic left knee pain with episodes of locking and clicking suggestive of meniscal injury. Status: Acute (9) Low back pain: Problem comment: Chronic and disabling per patient report Status: Acute (10) Depression: Problem comment: Previously treated. Now off treatment but reporting depression symptoms Status: Acute (11) Esophageal abnormality: Problem comment: Uncertain history of esophageal problems treated with PPI. GERD? Status: Acute (12) Social isolation: Problem comment: Estranged from his daughter and former girlfriend. Lives alone. Status: Acute (13) Financial difficulties: Problem comment: Not working. Is thinking about getting disability. [facility] Status: Acute Plan 61-year-old male with multiple medical problems leading to inability to care for himself anymore. Initial report from the emergency room indicates he is unable to walk. This appears to be multifactorial. Problems to address turns hospital stay include a trial of intra-articular cortisone injection for his knee to see if this helps ambulation. Evaluation for chest pain and exertional dyspnea. PE study is negative and lungs are clear. Will obtain echo and trend his troponin. Will also follow his abdominal pain. He has a poor candidate for surgery should he developed cholecystitis. This would need to be done at a tertiary care hospital due to his cirrhosis He has a poor candidate for opioid therapy or NSAID therapy. Will use low-dose acetaminophen for pain. Will initiate antidepressant therapy. Will initiate therapy for possible hepatic encephalopathy. VT prophylaxis with enoxaparin. Initiate treatment for GERD with omeprazole. Total time spent today is 80 minutes, 50 minutes in coordination of care and discussing with patient and other providers ongoing evaluation management multiple problems listed above
[2022-08-12] MEDS: TRIAMCINOLONE 40 MG/ML INJ INTRA-ARTI (14:45)
[2022-08-12] MEDS: BUPIVACAINE 0.5% 30 ML INJECTION (14:45)
--- NOTE | 2022-08-12 15:05 | P.PCN_ITS ---
Procedure Note Time Seen by Provider: 15:05 Date Seen: 08/12/22 Provider Contact Time: 15:05 Date of procedure: 08/12/22 Will [facility] bill your pro fee for this procedure?: Yes Pre-op diagnosis: Left knee arthritis Post-op diagnosis: same Procedure: Intra-articular injection of triamcinolone and bupivacaine in left knee Procedure Description: Risks benefits and alternatives discussed with the patient. He agrees to proceed. Inspection of the knee shows mild joint effusion. Palpation shows diffuse tenderness around the entire knee. He poorly tolerates any range of motion. No warmth or redness. Left knee is prepped with Betadine. Using sterile technique and a superior medial patellar approach I inject 40 mg of triamcinolone plus 9 mL of 0.5% bupivacaine. 15 minutes after the procedure IA go back to check on him and he does report significant improvement in his knee pain. Anesthesia: local Surgeon: Fawad Morales MD Condition: stable Disposition: no change
[2022-08-12] MEDS: OMEPRAZOLE 20 MG CAPSULE DR PO (15:34)
[2022-08-12] MEDS: ACETAMINOPHEN 325 MG TABLET 650 MG PO ×2 (15:34→20:12)
--- NOTE | 2022-08-12 19:20 | PC.NURSE ---
Pt noted abdominal and left knee pain, both chronic, this shift. Abdominal pain rated 5/10, knee 6/10 but improved to 3/10 after cortisone injection at bedside by Dr. Morales. Ambulation initially pivot transfer from wheelchair to bed, but after injection, ambulated to bathroom and within room independently or with SBA. Refusing walker. Pt. short of breath both at rest and after exertion, states is his baseline. Notes no support system other than his sister. Tele reading sinus rhythm with bundle branch block, rate mostly in 80-90s. ECHO requested for tomorrow. IV in R AC patent. Tolerating PO intake well. BM x1 this shift. Notes improvement in abdominal pain, but belly still distended. Report of headache at end of bond underwriter's shift; ice pack applied to back of neck- helpful per his report. Report given to ASHVIN Gomes.
[2022-08-12] MEDS: MELATONIN 3 MG TABLET PO (20:12)
[2022-08-12] MEDS: ENOXAPARIN 40 MG/0.4 ML INJ SUBCUT (20:12)
[2022-08-12] MEDS: LACTULOSE 20 GM/30 ML PO (20:12)
[2022-08-12] MEDS: SODIUM CHLORIDE 0.9 % (FLUSH) 10 ML SYRINGE 5 ML IVF (20:13)
[2022-08-13 03:00] VITALS: BP 122/81; PULSE 83; RESP 20; TEMP 36.8; O2SAT 93
[2022-08-13 06:59] LABS: Lactate* 1.8 mmol/L (0.5-1.9)
[2022-08-13 07:00] VITALS: BP 130/86; PULSE 76; PULSE 82; PULSE 83; RESP 20; TEMP 36.6; O2SAT 94
[2022-08-13 07:06] LABS: Hematocrit 39.6 % (37.0-53.0); Hemoglobin* 13.1 gm/dL (13.5-17.5); Immature Granulocytes Abs Auto 0.01 K/uL (0.00-0.30); Immature Granulocytes Pct Auto 0.2 %; Lymphocytes Percent Auto 12.4 % (20-44); Mean Corpuscular HGB Conc 33 gm/dL (32-36); Mean Corpuscular Hemoglobin 31 pg (26-34); Mean Corpuscular Volume 93 fL (80-100); Monocytes Percent Auto 2.5 % (0.0-11.0); Neutrophils Percent Auto 84.9 % (42.0-72.0); Platelet Count* 101 K/uL (140-440); RDW Coefficient of Variation % 16.7 % (11.5-15.5); Red Blood Count 4.27 m/uL (4.30-5.90); White Blood Count* 6.03 K/uL (4.50-11.00)
[2022-08-13 07:07] LABS: Slide Review Reflex No
[2022-08-13 07:16] LABS: Chloride* 111 mmol/L (96-114)
[2022-08-13 07:17] LABS: Potassium* 4.7 mmol/L (3.6-5.1); Sodium* 136 mmol/L (135-149)
[2022-08-13 07:19] LABS: Creatinine* 0.5 mg/dL (0.5-1.5); Est. Creatinine Clearance* 75.05; Estimated Glomerular Filt Rate 116 ml/min
[2022-08-13 07:20] LABS: Blood Urea Nitrogen* 15 mg/dL (7-30); Calcium* 8.2 mg/dL (8.4-10.6); Carbon Dioxide* 23 mmol/L (20-32); Glucose* 141 mg/dL (60-115)
[2022-08-13 07:23] LABS: C Reactive Protein* 0.7 mg/dL (0.5-1.0)
[2022-08-13 07:34] LABS: Troponin I* < 0.01 ng/mL (0.01-0.04)
--- NOTE | 2022-08-13 07:39 | PC.NURSE ---
Shift note: Pt rested overnight, minimum interaction with staff
[2022-08-13] MEDS: OMEPRAZOLE 20 MG CAPSULE DR PO (07:50)
[2022-08-13] MEDS: ACETAMINOPHEN 325 MG TABLET 650 MG PO (08:36)
[2022-08-13] MEDS: SODIUM CHLORIDE 0.9 % (FLUSH) 10 ML SYRINGE 5 ML IVF (08:36)
[2022-08-13] MEDS: ESCITALOPRAM 10 MG TABLET PO (08:36)
[2022-08-13 11:00] VITALS: BP 143/93; PULSE 98; RESP 18; TEMP 37.2; O2SAT 95
--- NOTE | 2022-08-13 13:04 | PM.DS1 ---
DS: Providers Provider Time Seen by Provider: 13:36 Date Seen: 08/13/22 Date of admission: 08/12/22 11:45 Primary care physician: Not a Local Provider Admitting Clinician: Fawad Morales MD Attending Physician on discharge: Fawad Morales MD Date of Discharge: 08/13/22 DS: Diagnosis Discharge Diagnosis (1) Abdominal pain: Status: Acute Problem details: Acute on chronic for more than 10 years. Cause is uncertain. He does have gallstones without obvious cholecystitis or biliary obstruction. (2) Chest pain: Status: Acute Problem details: Chronic. Troponin normal. Echo unremarkable. CT chest shows no PE or infiltrate. Cause uncertain. Treat GERD (3) Exertional dyspnea: Status: Acute Problem details: Likely multifactorial including possible COPD. Patient is very deconditioned and would benefit from a simple exercise program (4) Cholelithiasis: Status: Acute Problem details: Present for more than 10 years. May need further evaluation. Our surgeon recommends further evaluation at a tertiary care facility if surgery is contemplated. (5) Alcoholic cirrhosis: Status: Acute Problem details: Abstinent from alcohol for at least 3 years. (6) Adult failure to thrive: Status: Acute Problem details: Patient is struggling to maintain his independence. He has not been getting medical care for years. He is increasingly socially isolated. (7) Hepatitis C: Status: Acute Problem details: Apparently never treated. Has had evaluation in [place] by Gastroenterology specialists. Information from that is on available at this time (8) Left knee pain: Status: Acute Problem details: Acute on chronic left knee pain with episodes of locking and clicking suggestive of meniscal injury. 08/12/2022 intra-articular cortisone injection gave excellent relief for the 1st day. Now walking with a walker without difficulty. (9) Low back pain: Status: Acute Problem details: Chronic and disabling per patient report (10) Depression: Status: Acute Problem details: Previously treated. Now off treatment but reporting depression symptoms. Start escitalopram and get outpatient followup (11) Esophageal abnormality: Status: Acute Problem details: Uncertain history of esophageal problems treated with PPI. GERD? Continue omeprazole for now (12) Social isolation: Status: Acute Problem details: Estranged from his daughter and former girlfriend. Lives alone. (13) Financial difficulties: Status: Acute Problem details: Not working. Is thinking about getting disability. Gets financial support from the [facility]. (14) Gastroesophageal reflux: Status: Acute Problem details: Omeprazole DS: Summary Hospital Course Hospital Course: Juno Klein is a 61 year old male admitted through the emergency department with multiple medical problems.? He primarily came in because he was having acute worsening of his chronic abdominal pain.? He reports right upper quadrant abdominal pain which is chronic but has been worse recently.? Nothing he does seem to make it better or worse.? He has known cirrhosis of the liver related to alcohol abuse.? He is been sober for more than 3 years.? He is also known to have cholelithiasis without cholecystitis or choledocholithiasis.? He is also known to have chronic abdominal pain for more than 10 years and for which a specific diagnosis or treatment has not been identified.? He carries a diagnosis of hepatitis C but is not aware of ever being treated for it. He also reports chest pain which has been present for at least a year.? He has exertional dyspnea with this as well.? Nothing clearly makes the chest pain better.? He has never been diagnosed with coronary disease, pulmonary embolism, chronic lung disease.? He has been treated for gastroesophageal reflux in the past. He quit smoking over 3 years ago. He has had knee pain on the left side for about 3 months.? Reports his knee occasionally locks up.? When he walks he gets cracking sensation is knee and once in while will give way.? He has not had any injury to his knee that he is aware of.? Is very painful and difficult for him to walk because of his knee pain. In the hospital he received an intra-articular cortisone injection with excellent improvement in his pain and mobility. He has chronic low back pain and chronic neck pain, longstanding.? He is not aware of any focal neurologic problems or radiation of his pain.? He does have neuropathy in both feet which is also longstanding.? With his chronic knee pain and chronic back pain he is having difficulty walking.? In the emergency room he was unable to stand and walk today. After his knee injection he was able to get up and walk in his room. Therapy recommended he use a walker though he was walking without it at times. Was provided with a walker here to improve his mobility. Status at Discharge Functional status at discharge: uses cane/walker Overall status at discharge: patient is back to baseline Time Spent with Patient Time attestation: Total time spent providing and/or coordinating discharge services: Time spent: Greater than 30 minutes Exam Narrative: Exam Narrative: He is alert and appears in no distress. Speech is normal. Breathing is unlabored. He is observed to walk in the hallway with a walker without difficulty. Const: Vital Signs, click to edit/add: Vital Signs - 24 hr 08/12/22 13:15 08/12/22 13:15 08/12/22 15:00 Temperature 98.7 F Pulse Rate Pulse Rate [Left P ulse Oximeter] 84 Pulse Rate [Right Radial] Respiratory Rate 24 24 22 Blood Pressure [Le ft Arm] 131/88 Pulse Oximetry 95 95 Oxygen Delivery Nv thod Room Air Room Air 08/12/22 15:00 08/12/22 14:22 08/12/22 19:40 Temperature 98.3 F Pulse Rate 96 Pulse Rate [Left P ulse Oximeter] 83 Pulse Rate [Right Radial] 83 Respiratory Rate 22 20 Blood Pressure [Le ft Arm] 122/81 Pulse Oximetry 93 Oxygen Delivery Nv thod Room Air 08/12/22 23:00 08/12/22 23:00 08/12/22 23:00 Temperature 98.6 F Pulse Rate 96 Pulse Rate [Left P ulse Oximeter] 83 79 Pulse Rate [Right Radial] 83 Respiratory Rate 20 Blood Pressure [Le ft Arm] 119/82 Pulse Oximetry 90 Oxygen Delivery Nv thod Room Air 08/13/22 03:00 08/13/22 07:00 08/13/22 07:00 Temperature 98.3 F Pulse Rate 76 Pulse Rate [Left P ulse Oximeter] 83 83 Pulse Rate [Right Radial] Respiratory Rate 20 20 Blood Pressure [Le ft Arm] 122/81 Pulse Oximetry 93 Oxygen Delivery Nv thod Room Air 08/13/22 07:00 08/13/22 11:00 Temperature 97.9 F 99.0 F Pulse Rate Pulse Rate [Left P ulse Oximeter] Pulse Rate [Right Radial] 82 98 Respiratory Rate 20 18 Blood Pressure [Le ft Arm] 130/86 143/93 H Pulse Oximetry 94 95 Oxygen Delivery Nv thod Room Air Room Air Documenting provider has reviewed patient's vital signs: yes DS: Data Data Completed and Pending Labs on day of discharge: Labs from last 24 hours 08/13/22 08/13/22 08/13/22 06:06 06:06 06:06 WBC RBC Hgb Hct MCV MCH MCHC RDW Coeff of Cale Plt Count Neut % (Auto) Lymph % (Auto) Fleming % (Auto) Eos % (Auto) Baso % (Auto) Neut # (Auto) Lymph # (Auto) Fleming # (Auto) Eos # (Auto) Baso # (Auto) Sodium 136 Potassium 4.7 Chloride 111 Carbon Dioxide 23 BUN 15 Creatinine 0.5 Estimated Creat Clear 75.05 Estimated GFR 116 Glucose 141 H Lactate 1.8 Calcium 8.2 L Magnesium Ammonia 49.0 H Troponin I < 0.01 L C-Reactive Protein 0.7 HIV-1 Antibody HIV-1 Ab Interpret HIV-2 Antibody HIV 1&2 Ab Differentiat 08/13/22 08/13/22 08/12/22 06:06 06:06 10:30 WBC 6.03 RBC 4.27 L Hgb 13.1 L Hct 39.6 MCV 93 MCH 31 MCHC 33 RDW Coeff of Cale 16.7 H Plt Count 101 L Neut % (Auto) 84.9 H Lymph % (Auto) 12.4 L Fleming % (Auto) 2.5 Eos % (Auto) 0.0 Baso % (Auto) 0.0 Neut # (Auto) 5.10 Lymph # (Auto) 0.70 L Fleming # (Auto) 0.20 Eos # (Auto) 0.00 Baso # (Auto) 0.00 Sodium Potassium Chloride Carbon Dioxide BUN Creatinine Estimated Creat Clear Estimated GFR Glucose Lactate Calcium Magnesium 1.8 Ammonia Troponin I C-Reactive Protein HIV-1 Antibody Pending HIV-1 Ab Interpret Pending HIV-2 Antibody Pending HIV 1&2 Ab Differentiat Pending Preliminary micro results at discharge 08/12/22 Unknown Urine Culture - Preliminary Urine,Clean Catch NO GROWTH AFTER 24 HOURS Discharge Plan Discharge Disposition: Home, Self-Care Date of Admission: 08/12/22 11:45 Attending Provider on Discharge: Fawad Morales Primary Care Provider: Provider,Not a Local Condition: Improved Anticipated Discharge Date/Time: 08/13/22 15:00 Discharge Medications: New acetaminophen 325 mg Tablet 650 mg PO TID PRNQty: 100 0RF escitalopram oxalate 10 mg Tablet 10 mg PO DAILY Qty: 30 0RF lactulose 20 gram/30 mL Solution 20 g PO DAILY Qty: 480 0RF omeprazole 20 mg Capsule,Delayed Release(Dr/Ec) 20 mg PO DAILY@0700 Qty: 30 0RF No Action No Known Home Medications Discharge Orders: Discharge Order (Routine); Ordered 08/13/22 Ordered By: Fawad Morales Additional Instructions: We discussed a number of medical concerns that need follow-up in the clinic. Among these are cirrhosis of the liver, hepatitis-C, gallstones, back pain, knee pain, depression. If you get regular medical follow-up these problems can be a properly addressed. Activity Level: Activity as Tolerated and Use Walker Discharge Diet: Regular Follow Up Appointments: Nat Mccoy PA-C [Referring] - 08/22/22 9:30 am Provider,Not a Local [Primary Care Provider] - Forms: [employer] Info Instructions
[2022-08-13 14:06] VITALS: BP 136/85; PULSE 76; RESP 18; TEMP 37.2
--- NOTE | 2022-08-13 15:47 | PC.NURSE ---
Pt. alert and oriented. Pt. denied any N/V. Pt. said his pain in his left knee was much better after the cortisone shot he received 08/12. Pt. did not need any additional medications for pain control today. Pt. was able to independently ambulate in his room to the chair for meals and to the BR with the use of the standard walker he was given from Therapy. Pt. was discharged today to home at 1450 via wheelchair to awaiting taxi. IV removed intact. Discharge instructions given and pt. verbalized understanding of instructions.
[2022-08-18 00:06] LABS: HIV Serologic Interpretation HIV Abs Neg; HIV-1 Antibody Negative (Negative); HIV-2 Antibody Negative (Negative)
[2022-08-19 00:53] LABS: HIV-1 Qnt NAAT copies/mL Not Detected log cpy/mL
== END 2022-08-13 14:50 | disposition home or self-care (01) ==
LOC: ED 11:28 → MEDSURG 11:46
PROVIDERS: Internal Medicine; Admitting Provider Family Medicine; Emergency Provider Family Medicine; Visit Provider Family Medicine
DX: K80.20 Calculus of gallbladder without cholecystitis without obstruction (principal); K70.30 Alcoholic cirrhosis of liver without ascites; B19.20 Unspecified viral hepatitis C without hepatic coma; R06.09 Other forms of dyspnea; R07.9 Chest pain, unspecified; K21.9 Gastro-esophageal reflux disease without esophagitis; F10.21 Alcohol dependence, in remission; R62.7 Adult failure to thrive; M25.562 Pain in left knee; M54.50 Low back pain, unspecified; G62.9 Polyneuropathy, unspecified; M54.2 Cervicalgia; F32.A Depression, unspecified; K22.9 Disease of esophagus, unspecified; Z60.4 Social exclusion and rejection; Z59.9 Problem related to housing and economic circumstances, unspecified; Z87.891 Personal history of nicotine dependence; R26.2 Difficulty in walking, not elsewhere classified; Z66 Do not resuscitate; M25.462 Effusion, left knee; R10.11 Right upper quadrant pain
CPT/HCPCS: 36415; 71260; 73562; 74177; 76705; 80048; 80053; 81003; 81015; 82140; 82150; 83605; 83690; 83735; 83880; 84484; 85025; 85610; 85730; 86140; 86701; 86702; 87086; 87536; 87635; 93005; 93306; 96361; 96372; 96374; 96375; 97116; 97161; 97165; 97535; 99285; G0378; A9270; J1170; J1650; J1885; J3301; J3490; J7030; Q9967

== ENCOUNTER 2023-06-20 06:22 | Outpatient (CLI) | payer BC, SELFPAY | END 2023-06-20 06:23 | disposition home or self-care (01) | LOC: AMB 06-29 10:00 | PROVIDERS: Visit Provider Family Medicine | DX: R10.9 Unspecified abdominal pain (principal) | CPT/HCPCS: A0425; A0427 ==

== ENCOUNTER 2023-06-20 06:49 | Emergency (ER) | payer BC, SELFPAY ==
[2023-06-20] VITALS (66 sets, daily range): BP systolic 86–148; BP diastolic 54–95; PULSE 25–179; RESP 18–22; TEMP 37.1–38.8; O2SAT 81–100; BMI 36.5
--- NOTE | 2023-06-20 07:19 | ED.GENADULT ---
HPI - General Adult General Date Seen: 06/20/23 <Juno Blanc MD - Last Filed: 06/20/23 16:57> Chief complaint: Abdominal Pain <Andreea Cortez MD - Last Filed: 06/21/23 19:55> Stated complaint: Abdominal Pain <Andreea Cortez MD - Last Filed: 06/21/23 19:55> Time Seen by Provider: 06/20/23 07:05 <Andreea Cortez MD - Last Filed: 06/21/23 19:55> Source: patient <Andreea Cortez MD - Last Filed: 06/21/23 19:55> Mode of arrival: EMS <Andreea Cortez MD - Last Filed: 06/21/23 19:55> History of Present Illness HPI narrative: This was a very difficult interview. Patient presents to the ED by EMS. He has a known history of chronic abdominal pain secondary to cirrhosis and gallstones. His last admission here was in July. Those notes are reviewed. He has multiple significant social stressors. Patient reports that he had onset of right lower abdominal pain last night at around 10-11 p.m.. When I tried to clarify with him if this is different than his chronic abdominal pain or not, he screams as if in pain and avoids the question. The pain seems to be coming in waves but when I ask clarification of this, he does not clearly answer my question. He denies nausea and vomiting. Last bowel movement was yesterday, unremarkable. No bloody stools. No new falls, trauma or injury. He tells me that the pain is mostly in the right lower quadrant. When asked for clarification of if his pain is usually up under the ribs, he does not clearly answer me. He tells me also that he has been having pain with urination and some urinary incontinence in the last 3 days which is new for him. He does not clearly answer me when I ask about burning, blood or other urinary symptoms. I get the impression he has had kidney stones in the past but not recently. He also does not directly answer this question but gives around about response that was not clearly answering my question. EMS gave 100 mcg of fentanyl on route and patient arrives slightly hypoxic but still screaming in pain. Past medical history is notable for prior history of alcoholic cirrhosis, reports that he has been abstinent from alcohol and cigarettes for years. Prior records also indicate that he likely has COPD though he claims that he has seen a specialist and was told there was ?nothing wrong? but that he can barely ambulate without getting short of breath on a chronic basis. Reported history of cirrhosis, failure to thrive, depression. Prior notes are reviewed. ROS is notable for the acute on chronic abdominal pain and urinary changes as described above. He did not participate in the remainder of my HPI enough to answer a full review of systems though 1 was attempted times 12 systems. <Andreea Cortez MD - Last Filed: 06/21/23 19:55> Related Data Home medications: Home Medications Medication Instructions Recorded Confirmed No Known Home Medications 08/12/22 08/12/22 Previous Rx's Medication Instructions Recorded acetaminophen 325 mg tablet 650 mg (2 x 325 mg) PO TID PRN 08/13/22 #100 tabs escitalopram oxalate 10 mg tablet 10 mg PO DAILY #30 tabs 08/13/22 lactulose 20 gram/30 mL oral 20 g (30 mL) PO DAILY #480 mL 08/13/22 solution omeprazole 20 mg capsule,delayed 20 mg PO DAILY@0700 #30 caps 08/13/22 release <Andreea Cortez MD - Last Filed: 06/21/23 19:55> Allergies/adverse reactions: Allergies Allergy/AdvReac Type Severity Reaction Status Date / Time No Known Drug Allergies Allergy Verified 06/20/23 06:52 <Andreea Cortez MD - Last Filed: 06/21/23 19:55> [facility] Medical History: Medical History Gastroesophageal reflux ?K21.9 - Gastro-esophageal reflux disease without esophagitis (ICD-10) Left forearm fracture ?S52.92XA - Unspecified fracture of left forearm, initial encounter for closed fracture (ICD-10) Financial difficulties ?Z59.9 - Problem related to housing and economic circumstances, unspecified (ICD-10) Social isolation ?Z60.4 - Social exclusion and rejection (ICD-10) Esophageal abnormality ?K22.9 - Disease of esophagus, unspecified (ICD-10) Chest pain ?R07.9 - Chest pain, unspecified (ICD-10) Depression ?F32.A - Depression, unspecified (ICD-10) Low back pain ?M54.50 - Low back pain, unspecified (ICD-10) Left knee pain ?M25.562 - Pain in left knee (ICD-10) Hepatitis C ?B19.20 - Unspecified viral hepatitis C without hepatic coma (ICD-10) Exertional dyspnea ?R06.09 - Other forms of dyspnea (ICD-10) Adult failure to thrive ?R62.7 - Adult failure to thrive (ICD-10) Cholelithiasis ?K80.20 - Calculus of gallbladder without cholecystitis without obstruction (ICD-10) Abdominal pain ?R10.9 - Unspecified abdominal pain (ICD-10) Alcoholic cirrhosis ?K70.30 - Alcoholic cirrhosis of liver without ascites (ICD-10) <Andreea Cortez MD - Last Filed: 06/21/23 19:55> Surgical History: Surgical History History of failed repair of rotator cuff ?Z98.890 - Other specified postprocedural states (ICD-10) <Andreea Cortez MD - Last Filed: 06/21/23 19:55> Social History: Social History Narrative: He lives alone in [facility]. His girlfriend has left him. He has no contact with his daughter. His sister, Noemy, lives in [place] but is not in close contact with him. He indicates she would be healthcare power of enterprise integration developer. Code status is DNR. He is not working. He gets financial assistance from the [facility]. He has considered getting on disability. He does not have a personal physician. Remote history of being a patient at [facility] Highest level of school completed/degree received: high school graduate Smoking Status: Former smoker Do you use any of these nicotine containing products: None Second hand tobacco smoke exposure: No How often do you have a drink containing alcohol: never How often do you have six or more drinks on one occasion: Never AUDIT-C Alcohol total score: 0 Non-prescribed substance use: denies use Caffeine: No service: No <Andreea Cortez MD - Last Filed: 06/21/23 19:55> Exam Const: Vital Signs, click to edit/add: Vital Signs - 24 hr 06/20/23 20:01 06/20/23 20:02 06/20/23 20:15 Temperature Pulse Rate 100 98 99 Respiratory Rate 18 Blood Pressure 112/76 Pulse Oximetry 92 91 94 Oxygen Delivery Me thod Room Air Oxygen Flow Rate 06/20/23 20:16 06/20/23 20:18 06/20/23 20:30 Temperature 100.1 F H Pulse Rate 100 102 H Respiratory Rate Blood Pressure 103/65 Pulse Oximetry 94 92 Oxygen Delivery Me thod Oxygen Flow Rate 06/20/23 20:31 06/20/23 20:45 06/20/23 20:47 Temperature Pulse Rate 102 H 102 H 90 Respiratory Rate Blood Pressure 113/67 132/75 Pulse Oximetry 92 95 95 Oxygen Delivery Me thod Oxygen Flow Rate 06/20/23 20:48 06/20/23 21:01 06/20/23 21:08 Temperature Pulse Rate 99 101 H Respiratory Rate Blood Pressure 104/68 Pulse Oximetry 90 90 Oxygen Delivery Me thod Oxygen Flow Rate 06/20/23 21:15 06/20/23 21:17 06/20/23 21:30 Temperature Pulse Rate 97 95 96 Respiratory Rate Blood Pressure 126/85 Pulse Oximetry 91 92 90 Oxygen Delivery Me thod Oxygen Flow Rate 06/20/23 21:34 06/20/23 21:45 06/20/23 21:48 Temperature Pulse Rate 98 97 94 Respiratory Rate Blood Pressure 125/75 Pulse Oximetry 90 90 90 Oxygen Delivery Me thod Oxygen Flow Rate 06/20/23 22:00 06/20/23 22:01 06/20/23 22:15 Temperature Pulse Rate 91 94 95 Respiratory Rate Blood Pressure 132/71 Pulse Oximetry 95 95 95 Oxygen Delivery Me thod OxyMask OxyMask OxyMask Oxygen Flow Rate 2 2 2 06/20/23 22:16 06/20/23 22:17 Temperature Pulse Rate 93 94 Respiratory Rate Blood Pressure 128/77 Pulse Oximetry 96 96 Oxygen Delivery Me thod OxyMask OxyMask Oxygen Flow Rate 2 2 <Andreea Cortez MD - Last Filed: 06/21/23 19:55> Vital Signs, click to edit/add: Vital Signs - 24 hr 06/20/23 20:01 06/20/23 20:02 06/20/23 20:15 Temperature Pulse Rate 100 98 99 Respiratory Rate 18 Blood Pressure 112/76 Pulse Oximetry 92 91 94 Oxygen Delivery Me thod Room Air Oxygen Flow Rate 06/20/23 20:16 06/20/23 20:18 06/20/23 20:30 Temperature 100.1 F H Pulse Rate 100 102 H Respiratory Rate Blood Pressure 103/65 Pulse Oximetry 94 92 Oxygen Delivery Me thod Oxygen Flow Rate 06/20/23 20:31 06/20/23 20:45 06/20/23 20:47 Temperature Pulse Rate 102 H 102 H 90 Respiratory Rate Blood Pressure 113/67 132/75 Pulse Oximetry 92 95 95 Oxygen Delivery Me thod Oxygen Flow Rate 06/20/23 20:48 06/20/23 21:01 06/20/23 21:08 Temperature Pulse Rate 99 101 H Respiratory Rate Blood Pressure 104/68 Pulse Oximetry 90 90 Oxygen Delivery Me thod Oxygen Flow Rate 06/20/23 21:15 06/20/23 21:17 06/20/23 21:30 Temperature Pulse Rate 97 95 96 Respiratory Rate Blood Pressure 126/85 Pulse Oximetry 91 92 90 Oxygen Delivery Me thod Oxygen Flow Rate 06/20/23 21:34 06/20/23 21:45 06/20/23 21:48 Temperature Pulse Rate 98 97 94 Respiratory Rate Blood Pressure 125/75 Pulse Oximetry 90 90 90 Oxygen Delivery Me thod Oxygen Flow Rate 06/20/23 22:00 06/20/23 22:01 06/20/23 22:15 Temperature Pulse Rate 91 94 95 Respiratory Rate Blood Pressure 132/71 Pulse Oximetry 95 95 95 Oxygen Delivery Me thod OxyMask OxyMask OxyMask Oxygen Flow Rate 2 2 2 06/20/23 22:16 06/20/23 22:17 Temperature Pulse Rate 93 94 Respiratory Rate Blood Pressure 128/77 Pulse Oximetry 96 96 Oxygen Delivery Me thod OxyMask OxyMask Oxygen Flow Rate 2 2 <Juno Blanc MD - Last Filed: 06/20/23 16:57> Vital Signs, click to edit/add: Vital Signs - 24 hr 06/20/23 20:01 06/20/23 20:02 06/20/23 20:15 Temperature Pulse Rate 100 98 99 Respiratory Rate 18 Blood Pressure 112/76 Pulse Oximetry 92 91 94 Oxygen Delivery Me thod Room Air Oxygen Flow Rate 06/20/23 20:16 06/20/23 20:18 06/20/23 20:30 Temperature 100.1 F H Pulse Rate 100 102 H Respiratory Rate Blood Pressure 103/65 Pulse Oximetry 94 92 Oxygen Delivery Me thod Oxygen Flow Rate 06/20/23 20:31 06/20/23 20:45 06/20/23 20:47 Temperature Pulse Rate 102 H 102 H 90 Respiratory Rate Blood Pressure 113/67 132/75 Pulse Oximetry 92 95 95 Oxygen Delivery Me thod Oxygen Flow Rate 06/20/23 20:48 06/20/23 21:01 06/20/23 21:08 Temperature Pulse Rate 99 101 H Respiratory Rate Blood Pressure 104/68 Pulse Oximetry 90 90 Oxygen Delivery Me thod Oxygen Flow Rate 06/20/23 21:15 06/20/23 21:17 06/20/23 21:30 Temperature Pulse Rate 97 95 96 Respiratory Rate Blood Pressure 126/85 Pulse Oximetry 91 92 90 Oxygen Delivery Me thod Oxygen Flow Rate 06/20/23 21:34 06/20/23 21:45 06/20/23 21:48 Temperature Pulse Rate 98 97 94 Respiratory Rate Blood Pressure 125/75 Pulse Oximetry 90 90 90 Oxygen Delivery Me thod Oxygen Flow Rate 06/20/23 22:00 06/20/23 22:01 06/20/23 22:15 Temperature Pulse Rate 91 94 95 Respiratory Rate Blood Pressure 132/71 Pulse Oximetry 95 95 95 Oxygen Delivery Me thod OxyMask OxyMask OxyMask Oxygen Flow Rate 2 2 2 06/20/23 22:16 06/20/23 22:17 Temperature Pulse Rate 93 94 Respiratory Rate Blood Pressure 128/77 Pulse Oximetry 96 96 Oxygen Delivery Me thod OxyMask OxyMask Oxygen Flow Rate 2 2 <Tanya Osuna MD - Last Filed: 06/20/23 20:51> Documenting provider has reviewed patient's vital signs: yes <Andreea Cortez MD - Last Filed: 06/21/23 19:55> Other: Distress due to pain, seems to come in intermittent waves. Did not seem to improve with administration of pain medication. <Andreea Cortez MD - Last Filed: 06/21/23 19:55> HENMT: Common normals: normocephalic and head/scalp atraumatic <Andreea Cortez MD - Last Filed: 06/21/23 19:55> Head and scalp: normocephalic and atraumatic <Andreea Cortez MD - Last Filed: 06/21/23 19:55> Face and sinus: normal facial exam <Andreea Cortez MD - Last Filed: 06/21/23 19:55> Mouth: oral and palatal mucosa normal <Andreea Cortez MD - Last Filed: 06/21/23 19:55> Throat: posterior oropharynx normal <Andreea Cortez MD - Last Filed: 06/21/23 19:55> Eye: General eye: normal appearance of both eyes <Andreea Cortez MD - Last Filed: 06/21/23 19:55> Neck & C-Spine: Common normals: full ROM and no lymphadenopathy <Andreea Cortez MD - Last Filed: 06/21/23 19:55> Resp: Common normals: normal respiratory effort and no use of accessory muscles <Andreea Cortez MD - Last Filed: 06/21/23 19:55> Other: Limited exam due to poor patient participation but no obvious crackles or wheeze. <Andreea Cortez MD - Last Filed: 06/21/23 19:55> Cardio: Common normals: regular rate, regular rhythm, S1 normal heart sound, S2 normal heart sound and no murmurs <Andreea Cortez MD - Last Filed: 06/21/23 19:55> Rate: regular rate <MD Karis Quevedo Last Filed: 06/21/23 19:55> Rhythm: regular rhythm <Andreea Cortez MD - Last Filed: 06/21/23 19:55> Heart sounds: S1 normal and S2 normal <Andreea Cortez MD - Last Filed: 06/21/23 19:55> Other: Limited exam due to patient's pain, no obvious murmur. <MD Karis Quevedo Last Filed: 06/21/23 19:55> GI: Other: Visible hepatomegaly with no evidence of varicosities on the skin surface. Patient tender to palpation of the entire abdomen and it does not localize, difficult exam. There did not seem to be rebound tenderness or guarding. The bowel sounds do sound normoactive. I do not appreciate any mass other than the liver enlargement. <Andreea Cortez MD - Last Filed: 06/21/23 19:55> Extremity: Common normals: normal capillary refill <Andreea Cortez MD - Last Filed: 06/21/23 19:55> Other: 2+ edema on the lower extremities, he states this is chronic for him. <Andreea Cortez MD - Last Filed: 06/21/23 19:55> Neuro: Other: Seems to have some gross motor weakness with no obvious focal deficit. No tremor. <Andreea Cortez MD - Last Filed: 06/21/23 19:55> Course Course ED Course: Dr. Blanc assumed care at 8:00 a.m.-shift change. Re-evaluated the patient. Still right lower quadrant> right mid and right upper and right CVA tenderness. No peritoneal findings. CT abdomen pelvis results came back IMPRESSION: 1. There is a 6 millimeter obstructing stone seen in the right ureterovesicular junction causing mild right-sided hydroureteronephrosis. 2. No evidence of bowel obstruction or inflammation. 3. The appendix is normal in appearance. 4. Cholelithiasis without CT evidence of acute cholecystitis. If there is clinical concern for acute cholecystitis would recommend right upper quadrant abdominal ultrasound. Labs show: Ethanol less than 0.01. CRP 1.9. WBC 9.2, hemoglobin 13.8, platelet count 124 Sodium 134, potassium 4.0, chloride 105, bicarb 22, anion gap 7, BUN 12, creatinine 0.6, glucose 101 AST 58, ALT 50, alk-phos 119, bilirubin 1.2, ammonia 29 UA is abnormal with 10-25 RBC, greater than 100 WBC, positive leukocyte esterase, negative nitrite. Suspect UTI-Rocephin 1 g IV ordered. Urine culture added. <Juno Blanc MD - Last Filed: 06/20/23 16:57> Reevaluation(s) Reevaluation #1: Recheck-discussed with Urology from [place], Dr. Serrano. He agree that [facility]. Not an emergent transfer. Recheck-no beds at [place]. He is placed on the [facility] wait list. Recheck-he may be able to get a bed today at [facility]. He discussed with hospitalist, Dr. Hernando gillis. He accepts the patient at this time understanding that there may not be a bed for an additional 4 hours. He also asked me to consult with the urology service at [facility]. Recheck-discussed with CHANO Espinoza for Urology at [facility]. She agrees that the patient would need a procedure today thinking get a bed. They will await the patient to arrive. <Juno Blanc MD - Last Filed: 06/20/23 16:57> Reevaluation #2: Recheck-patient updated. Pain tolerable after Dilaudid. <Juno Blanc MD - Last Filed: 06/20/23 16:57> Reevaluation #3: Recheck-patient having increasing pain, in additional p.r.n. Dilaudid ordered <Juno Blanc MD - Last Filed: 06/20/23 16:57> Additional Reevaluation(s): Recheck-now has a fever of 101.8. More tachycardic up to around 118. Blood pressure stable. Tylenol, saline bolus ordered. Recheck-IV in his left arm infiltrated with infusion of saline. He had not received much IV saline. Heart rate still about 118. Blood pressure 129/82. I rechecked is on. There is no evidence for any ischemia to the skin. The tissue of his left volar forearm and distal upper arm is swollen with subcutaneous saline. Nurses are working to reestablish a functional IV in his right arm. Recheck-I called again to the line access center at 4:40 p.m.. He has been assigned a unit (4900 at [facility]) but not of bed. The nursing supervisor meter shop on that floor is working through 9 potential admissions. I asked them to prior to his this patient because he is becoming febrile and likely would deteriorate further if he is forced to delay any more hours here at [facility]. [facility] will work to expedite his transfer. Signed over to Dr. Zambrano at 5:00 p.m.. <Juno Blanc MD - Last Filed: 06/20/23 16:57> Recheck-now has a fever of 101.8. More tachycardic up to around 118. Blood pressure stable. Tylenol, saline bolus ordered. Recheck-IV in his left arm infiltrated with infusion of saline. He had not received much IV saline. Heart rate still about 118. Blood pressure 129/82. I rechecked is on. There is no evidence for any ischemia to the skin. The tissue of his left volar forearm and distal upper arm is swollen with subcutaneous saline. Nurses are working to reestablish a functional IV in his right arm. Recheck-I called again to the line access center at 4:40 p.m.. He has been assigned a unit (4900 at [facility]) but not of bed. The nursing supervisor meter shop on that floor is working through 9 potential admissions. I asked them to prior to his this patient because he is becoming febrile and likely would deteriorate further if he is forced to delay any more hours here at [place]. [facility] access center will work to expedite his transfer. Signed over to Dr. Zambrano at 5:00 p.m.. 6:05 p.m.: Nursing staff reports to me that the patient's blood pressure has dropped to systolics of 80s, pulse 120s. He has received the 1 L of normal saline, did obtain IV access. I have ordered a 2 L of LR, ordered norepinephrine drip to be started. Will calculate his fluid requirements for total 30 mL/kilos, would appear to be another liter of fluids. Nursing staff reports that we have bed placement, are waiting ambulance transfer, there is going to be shift change. Unfortunately, will let EMS know that this patient needs to go emergently, he is septic with an obstructive kidney stone, needs emergent intervention with Urology which we cannot provide here. 6:38 p.m.: Spoke with Deana LOCK at [facility]. Updated her on the patient's status with a blood pressure of 86/59, pulse 120s. He is still alert and interactive. Receiving his 2 L of fluids, will need 1/3 L. his current map is 69. We are going to initiate norepinephrine drip. Nursing staff here let me know that he was slotted for a floor bed. Deana is going to do some checking, I may need to speak with Urology again. If we need to transfer this patient ED to ED so that he can get to surgery, may need to consider doing this. He may ultimately need a unit bed now. She will be calling me back. 6:53 p.m.: Deana RN at [facility] has called back. Dr. Bean the urologist is aware and awaiting this patient, he has been updated of his status. They are needing to move some patients out of the ICU and then can accept this patient, hopefully within a 1/2 hour. They understand his change in status. They cannot accept him through the ER, it is reportedly far too busy for this. Likely once they have cleared an ICU bed for him, will have the patient go to the OR and then to the ICU. Will update labs on him, see where there at this time, have added Zosyn into his antibiotic regimen, he is certainly septic, will look at some other criteria to see how ill he is becoming. 8:39 p.m.: Did contact [facility] triage nurse myself. They may have capacity to take this patient. We are still awaiting a unit bed open at [facility] before they will allow transfer. We have [facility] to go ED to ED or have the patient go to surgery immediately but they cannot do so. We did ask [facility] and there are no other facilities within their system that have capacity. There is nothing in the [facility] [facility], nothing in the [place] system for him, [facility] [place], [facility] cannot. We are sending are images, sending are paperwork to [place], they will get back to us. Patient is maintaining on lowest dose of norepinephrine. <Tanya Osuna MD - Last Filed: 06/20/23 20:51> Vital Signs Vital signs: Initial Vital Signs Temperature 98.7 F 06/20/23 06:52 Temperature Source Temporal Artery Scan 06/20/23 06:52 Pulse Rate 87 06/20/23 06:52 Pulse Rhythm Regular 06/20/23 06:52 Pulse Strength 3+ Normal 06/20/23 06:52 Respiratory Rate 20 06/20/23 06:52 Blood Pressure 148/95 H 06/20/23 06:52 Blood Pressure Mean 112 H 06/20/23 06:52 Pulse Oximetry 91 1227/23 06:52 Oxygen Delivery Method Room Air 06/20/23 06:52 Vital Signs Temperature 98.7 F 06/20/23 06:52 Pulse Rate 87 06/20/23 06:52 Respiratory Rate 20 06/20/23 06:52 Blood Pressure 148/95 H 06/20/23 06:52 Pulse Oximetry 91 06/20/23 06:52 Oxygen Delivery Method Room Air 06/20/23 06:52 Temperature 100.1 F H 06/20/23 20:18 Pulse Rate 94 06/20/23 22:17 Respiratory Rate 18 06/20/23 20:01 Blood Pressure 128/77 06/20/23 22:16 Pulse Oximetry 96 06/20/23 22:17 Oxygen Delivery Method OxyMask 06/20/23 22:17 Oxygen Flow Rate 2 06/20/23 22:17 <Andreea Cortez MD - Last Filed: 06/21/23 19:55> Initial Vital Signs Temperature 98.7 F 06/20/23 06:52 Temperature Source Temporal Artery Scan 06/20/23 06:52 Pulse Rate 87 06/20/23 06:52 Pulse Rhythm Regular 06/20/23 06:52 Pulse Strength 3+ Normal 06/20/23 06:52 Respiratory Rate 20 06/20/23 06:52 Blood Pressure 148/95 H 06/20/23 06:52 Blood Pressure Mean 112 H 06/20/23 06:52 Pulse Oximetry 91 06/20/23 06:52 Oxygen Delivery Method Room Air 06/20/23 06:52 Vital Signs Temperature 98.7 F 06/20/23 06:52 Pulse Rate 87 06/20/23 06:52 Respiratory Rate 20 06/20/23 06:52 Blood Pressure 148/95 H 06/20/23 06:52 Pulse Oximetry 91 06/20/23 06:52 Oxygen Delivery Method Room Air 06/20/23 06:52 Temperature 100.1 F H 06/20/23 20:18 Pulse Rate 94 06/20/23 22:17 Respiratory Rate 18 06/20/23 20:01 Blood Pressure 128/77 06/20/23 22:16 Pulse Oximetry 96 06/20/23 22:17 Oxygen Delivery Method OxyMask 06/20/23 22:17 Oxygen Flow Rate 2 06/20/23 22:17 <Jnuo Blanc MD - Last Filed: 06/20/23 16:57> Initial Vital Signs Temperature 98.7 F 06/20/23 06:52 Temperature Source Temporal Artery Scan 06/20/23 06:52 Pulse Rate 87 06/20/23 06:52 Pulse Rhythm Regular 06/20/23 06:52 Pulse Strength 3+ Normal 06/20/23 06:52 Respiratory Rate 20 06/20/23 06:52 Blood Pressure 148/95 H 06/20/23 06:52 Blood Pressure Mean 112 H 06/20/23 06:52 Pulse Oximetry 91 06/20/23 06:52 Oxygen Delivery Method Room Air 06/20/23 06:52 Vital Signs Temperature 98.7 F 06/20/23 06:52 Pulse Rate 87 06/20/23 06:52 Respiratory Rate 20 06/20/23 06:52 Blood Pressure 148/95 H 06/20/23 06:52 Pulse Oximetry 91 06/20/23 06:52 Oxygen Delivery Method Room Air 06/20/23 06:52 Temperature 100.1 F H 06/20/23 20:18 Pulse Rate 94 06/20/23 22:17 Respiratory Rate 18 06/20/23 20:01 Blood Pressure 128/77 06/20/23 22:16 Pulse Oximetry 96 06/20/23 22:17 Oxygen Delivery Method OxyMask 06/20/23 22:17 Oxygen Flow Rate 2 06/20/23 22:17 <Tanya Osuna MD - Last Filed: 06/20/23 20:51> Medications Administered Medications: Discontinued Medications Generic Name Dose Route Start Last Admin Trade Name Freq PRN Reason Stop Dose Admin Acetaminophen 1,000 mg 06/20/23 15:58 06/20/23 16:11 Acetaminophen 500 Mg Tablet PO 06/20/23 15:59 1,000 mg ONCE ONE Administration Hydromorphone HCl 0.5 mg 06/20/23 10:57 06/20/23 11:21 Hydromorphone 0.5 Mg/0.5 Ml Inj IVP 0.5 mg Q1H PRN Administration Pain Hydromorphone HCl 0.5 mg 06/20/23 15:34 06/20/23 16:02 Hydromorphone 0.5 Mg/0.5 Ml Inj IVP 0.5 mg Q1H PRN Administration Pain Hydroxyzine HCl 25 mg 06/20/23 07:15 06/20/23 08:22 Hydroxyzine Hcl 50 Mg/Ml Inj IM 06/20/23 07:16 25 mg ONCE ONE Administration Ceftriaxone Sodium 1 gm/ 100 mls @ 200 mls/hr 06/20/23 11:00 06/20/23 12:51 Sodium Chloride IVPB Infused Q24H SUSAN Infusion Sodium Chloride 1,000 mls @ 1,000 mls/hr 06/20/23 16:00 06/20/23 17:10 0.9 % Sodium Chloride 1000 Ml IV 06/20/23 16:59 Infused .Q1H SUSAN Infusion Lactated Ringer's 1,000 mls @ 1,000 mls/hr 06/20/23 18:04 06/20/23 19:30 Lactated Ringers 1000 Ml IV 06/20/23 19:03 Infused .Q1H ONE Infusion Norepinephrine/Dextrose 4,000 mcg in 250 mls @ 40.823 mls/hr 06/20/23 18:05 06/20/23 22:30 Norepinephrine 4 Mg/250 Ml IV 0.08 mcg/kg/min CONT PRN 32.66 mls/hr Titration Protocol 0.1 MCG/KG/MIN Lactated Ringer's 1,000 mls @ 500 mls/hr 06/20/23 18:55 06/20/23 22:51 Lactated Ringers 1000 Ml IV 06/20/23 20:54 Infused .Q2H SUSAN Infusion Piperacillin Sod/Tazobactam 100 mls @ 200 mls/hr 06/20/23 19:03 06/20/23 20:16 Sod 3.375 gm/ Sodium Chloride IVPB 06/20/23 19:04 Infused ONCE ONE Infusion Ketorolac Tromethamine 15 mg 06/20/23 07:15 06/20/23 08:22 Ketorolac 15 Mg/Ml Inj IVP 06/20/23 07:16 15 mg ONCE ONE Administration <Andreea Cortez MD - Last Filed: 06/21/23 19:55> Discontinued Medications Generic Name Dose Route Start Last Admin Trade Name Freq PRN Reason Stop Dose Admin Acetaminophen 1,000 mg 06/20/23 15:58 06/20/23 16:11 Acetaminophen 500 Mg Tablet PO 06/20/23 15:59 1,000 mg ONCE ONE Administration Hydromorphone HCl 0.5 mg 06/20/23 10:57 06/20/23 11:21 Hydromorphone 0.5 Mg/0.5 Ml Inj IVP 0.5 mg Q1H PRN Administration Pain Hydromorphone HCl 0.5 mg 06/20/23 15:34 06/20/23 16:02 Hydromorphone 0.5 Mg/0.5 Ml Inj IVP 0.5 mg Q1H PRN Administration Pain Hydroxyzine HCl 25 mg 06/20/23 07:15 06/20/23 08:22 Hydroxyzine Hcl 50 Mg/Ml Inj IM 06/20/23 07:16 25 mg ONCE ONE Administration Ceftriaxone Sodium 1 gm/ 100 mls @ 200 mls/hr 06/20/23 11:00 06/20/23 12:51 Sodium Chloride IVPB Infused Q24H SUSAN Infusion Sodium Chloride 1,000 mls @ 1,000 mls/hr 06/20/23 16:00 06/20/23 17:10 0.9 % Sodium Chloride 1000 Ml IV 06/20/23 16:59 Infused .Q1H SUSAN Infusion Lactated Ringer's 1,000 mls @ 1,000 mls/hr 06/20/23 18:04 06/20/23 19:30 Lactated Ringers 1000 Ml IV 06/20/23 19:03 Infused .Q1H ONE Infusion Norepinephrine/Dextrose 4,000 mcg in 250 mls @ 40.823 mls/hr 06/20/23 18:05 06/20/23 22:30 Norepinephrine 4 Mg/250 Ml IV 0.08 mcg/kg/min CONT PRN 32.66 mls/hr Titration Protocol 0.1 MCG/KG/MIN Lactated Ringer's 1,000 mls @ 500 mls/hr 06/20/23 18:55 06/20/23 22:51 Lactated Ringers 1000 Ml IV 06/20/23 20:54 Infused .Q2H SUSAN Infusion Piperacillin Sod/Tazobactam 100 mls @ 200 mls/hr 06/20/23 19:03 06/20/23 20:16 Sod 3.375 gm/ Sodium Chloride IVPB 06/20/23 19:04 Infused ONCE ONE Infusion Ketorolac Tromethamine 15 mg 06/20/23 07:15 06/20/23 08:22 Ketorolac 15 Mg/Ml Inj IVP 06/20/23 07:16 15 mg ONCE ONE Administration <Juno Blanc MD - Last Filed: 06/20/23 16:57> Discontinued Medications Generic Name Dose Route Start Last Admin Trade Name Freq PRN Reason Stop Dose Admin Acetaminophen 1,000 mg 06/20/23 15:58 06/20/23 16:11 Acetaminophen 500 Mg Tablet PO 06/20/23 15:59 1,000 mg ONCE ONE Administration Hydromorphone HCl 0.5 mg 06/20/23 10:57 06/20/23 11:21 Hydromorphone 0.5 Mg/0.5 Ml Inj IVP 0.5 mg Q1H PRN Administration Pain Hydromorphone HCl 0.5 mg 06/20/23 15:34 06/20/23 16:02 Hydromorphone 0.5 Mg/0.5 Ml Inj IVP 0.5 mg Q1H PRN Administration Pain Hydroxyzine HCl 25 mg 06/20/23 07:15 06/20/23 08:22 Hydroxyzine Hcl 50 Mg/Ml Inj IM 06/20/23 07:16 25 mg ONCE ONE Administration Ceftriaxone Sodium 1 gm/ 100 mls @ 200 mls/hr 06/20/23 11:00 06/20/23 12:51 Sodium Chloride IVPB Infused Q24H SUSAN Infusion Sodium Chloride 1,000 mls @ 1,000 mls/hr 06/20/23 16:00 06/20/23 17:10 0.9 % Sodium Chloride 1000 Ml IV 06/20/23 16:59 Infused .Q1H SUSAN Infusion Lactated Ringer's 1,000 mls @ 1,000 mls/hr 06/20/23 18:04 06/20/23 19:30 Lactated Ringers 1000 Ml IV 06/20/23 19:03 Infused .Q1H ONE Infusion Norepinephrine/Dextrose 4,000 mcg in 250 mls @ 40.823 mls/hr 06/20/23 18:05 06/20/23 22:30 Norepinephrine 4 Mg/250 Ml IV 0.08 mcg/kg/min CONT PRN 32.66 mls/hr Titration Protocol 0.1 MCG/KG/MIN Lactated Ringer's 1,000 mls @ 500 mls/hr 06/20/23 18:55 06/20/23 22:51 Lactated Ringers 1000 Ml IV 06/20/23 20:54 Infused .Q2H SUSAN Infusion Piperacillin Sod/Tazobactam 100 mls @ 200 mls/hr 06/20/23 19:03 06/20/23 20:16 Sod 3.375 gm/ Sodium Chloride IVPB 06/20/23 19:04 Infused ONCE ONE Infusion Ketorolac Tromethamine 15 mg 06/20/23 07:15 06/20/23 08:22 Ketorolac 15 Mg/Ml Inj IVP 06/20/23 07:16 15 mg ONCE ONE Administration <Tanya Osuna MD - Last Filed: 06/20/23 20:51> Medical Decision Making Lab Data Lab results reviewed: Yes I reviewed the patient's lab results <Tanya Osuna MD - Last Filed: 06/20/23 20:51> Labs: Lab Results 06/20/23 06/20/23 06/20/23 Range/Units 07:46 07:55 08:04 WBC 9.25 (4.50-11.00) K/uL RBC 4.46 (4.30-5.90) m/uL Hgb 13.8 (13.5-17.5) gm/dL Hct 41.9 (37.0-53.0) % MCV 94 (80-100) fL MCH 31 (26-34) pg MCHC 33 (32-36) gm/dL RDW Coeff of [place] 15.9 H (11.5-15.5) % Plt Count 124 L (140-440) K/uL Neut % (Auto) 65.2 (42.0-72.0) % Lymph % (Auto) 17.0 L (20-44) % [place] % (Auto) 16.1 H (0.0-11.0) % Eos % (Auto) 1.1 (0.0-7.0) % Baso % (Auto) 0.5 (0.0-3.0) % Neut # (Auto) 6.03 (1.7-7.0) K/uL Lymph # (Auto) 1.60 (0.90-2.90) K/uL [place] # (Auto) 1.50 H (0.00-0.90) K/UL Eos # (Auto) 0.10 (0.00-0.50) K/uL Baso # (Auto) 0.05 (0.00-0.30) K/uL Abs Immat Gran (auto) 0.01 (0.00-0.30) K/uL Imm/Tot Granulo (auto) 0.1 % Sodium 134 L (135-149) mmol/L Potassium 4.0 (3.6-5.1) mmol/L Chloride 105 (96-114) mmol/L Carbon Dioxide 22 (20-32) mmol/L Anion Gap 7 (7-15) mEq/L BUN 12 (7-30) mg/dL Creatinine 0.6 (0.5-1.5) mg/dL Estimated Creat Clear 74.10 Estimated GFR 109 ml/min Glucose 101 (60-115) mg/dL Lactate 1.3 (0.5-1.9) mmol/L Calcium 8.0 L (8.4-10.6) mg/dL Total Bilirubin 1.2 (0.1-1.5) mg/dL AST 58 H (12-35) U/L ALT 50 (4-50) U/L Alkaline Phosphatase 119 (40-150) U/L Ammonia 29.0 (13.1-30.0) umol/L C-Reactive Protein 1.9 H (0.5-1.0) mg/dL Total Protein 8.1 (6.0-8.3) g/dL Albumin 3.3 (3.3-5.0) g/dL Lipase 199 (23-300) U/L Urine Color (Yellow) Urine Appearance (Clear) Urine pH (5.0-8.5) Ur Specific [place] (1.000-1.030) Urine Protein (Negative) Urine Glucose (UA) (Negative) Urine Ketones (Negative) Urine Blood (Negative) Urine Nitrite (Negative) Urine Bilirubin (Negative) Urine Urobilinogen (0.2-1.0) Ur Leukocyte Esterase (Negative) Urine RBC (0-2) Urine WBC (0-5) Ur Squamous Epith Cells (None-Few) Urine Bacteria (None) Ethyl Alcohol < 0.01 L (0.01-0.03) % Lab Acknowledgement Test Added Test Added 06/20/23 06/20/23 Range/Units 19:40 Unknown WBC 23.08 H (4.50-11.00) K/uL RBC 4.29 L (4.30-5.90) m/uL Hgb 13.2 L (13.5-17.5) gm/dL Hct 40.2 (37.0-53.0) % MCV 94 (80-100) fL MCH 31 (26-34) pg MCHC 33 (32-36) gm/dL RDW Coeff of [place] 16.1 H (11.5-15.5) % Plt Count 119 L (140-440) K/uL Neut % (Auto) 85.6 H (42.0-72.0) % Lymph % (Auto) 2.0 L (20-44) % [place] % (Auto) 11.6 H (0.0-11.0) % Eos % (Auto) 0.0 (0.0-7.0) % Baso % (Auto) 0.2 (0.0-3.0) % Neut # (Auto) 19.80 H (1.7-7.0) K/uL Lymph # (Auto) 0.50 L (0.90-2.90) K/uL [place] # (Auto) 2.70 H (0.00-0.90) K/UL Eos # (Auto) 0.00 (0.00-0.50) K/uL Baso # (Auto) 0.00 (0.00-0.30) K/uL Abs Immat Gran (auto) 0.10 (0.00-0.30) K/uL Imm/Tot Granulo (auto) 0.6 % Sodium 135 (135-149) mmol/L Potassium 3.3 L (3.6-5.1) mmol/L Chloride 111 (96-114) mmol/L Carbon Dioxide 18 L (20-32) mmol/L Anion Gap 6 L (7-15) mEq/L BUN 14 (7-30) mg/dL Creatinine 0.9 (0.5-1.5) mg/dL Estimated Creat Clear 74.10 Estimated GFR 97 ml/min Glucose 94 (60-115) mg/dL Lactate 1.6 (0.5-1.9) mmol/L Calcium 7.7 L (8.4-10.6) mg/dL Total Bilirubin (0.1-1.5) mg/dL AST (12-35) U/L ALT (4-50) U/L Alkaline Phosphatase (40-150) U/L Ammonia (13.1-30.0) umol/L C-Reactive Protein (0.5-1.0) mg/dL Total Protein (6.0-8.3) g/dL Albumin (3.3-5.0) g/dL Lipase (23-300) U/L Urine Color Yellow (Yellow) Urine Appearance Cloudy A (Clear) Urine pH 7.0 (5.0-8.5) Ur Specific [place] 1.015 (1.000-1.030) Urine Protein 1+ A (Negative) Urine Glucose (UA) Negative (Negative) Urine Ketones Negative (Negative) Urine Blood 2+ A (Negative) Urine Nitrite Negative (Negative) Urine Bilirubin Negative (Negative) Urine Urobilinogen 0.2 (0.2-1.0) Ur Leukocyte Esterase 3+ A (Negative) Urine RBC 10-25 A (0-2) Urine WBC >100 A (0-5) Ur Squamous Epith Cells Few (None-Few) Urine Bacteria Moderate A (None) Ethyl Alcohol (0.01-0.03) % Lab Acknowledgement <Andreea Cortez MD - Last Filed: 06/21/23 19:55> Lab Results 06/20/23 06/20/23 06/20/23 Range/Units 07:46 07:55 08:04 WBC 9.25 (4.50-11.00) K/uL RBC 4.46 (4.30-5.90) m/uL Hgb 13.8 (13.5-17.5) gm/dL Hct 41.9 (37.0-53.0) % MCV 94 (80-100) fL MCH 31 (26-34) pg MCHC 33 (32-36) gm/dL RDW Coeff of [place] 15.9 H (11.5-15.5) % Plt Count 124 L (140-440) K/uL Neut % (Auto) 65.2 (42.0-72.0) % Lymph % (Auto) 17.0 L (20-44) % [place] % (Auto) 16.1 H (0.0-11.0) % Eos % (Auto) 1.1 (0.0-7.0) % Baso % (Auto) 0.5 (0.0-3.0) % Neut # (Auto) 6.03 (1.7-7.0) K/uL Lymph # (Auto) 1.60 (0.90-2.90) K/uL [place] # (Auto) 1.50 H (0.00-0.90) K/UL Eos # (Auto) 0.10 (0.00-0.50) K/uL Baso # (Auto) 0.05 (0.00-0.30) K/uL Abs Immat Gran (auto) 0.01 (0.00-0.30) K/uL Imm/Tot Granulo (auto) 0.1 % Sodium 134 L (135-149) mmol/L Potassium 4.0 (3.6-5.1) mmol/L Chloride 105 (96-114) mmol/L Carbon Dioxide 22 (20-32) mmol/L Anion Gap 7 (7-15) mEq/L BUN 12 (7-30) mg/dL Creatinine 0.6 (0.5-1.5) mg/dL Estimated Creat Clear 74.10 Estimated GFR 109 ml/min Glucose 101 (60-115) mg/dL Lactate 1.3 (0.5-1.9) mmol/L Calcium 8.0 L (8.4-10.6) mg/dL Total Bilirubin 1.2 (0.1-1.5) mg/dL AST 58 H (12-35) U/L ALT 50 (4-50) U/L Alkaline Phosphatase 119 (40-150) U/L Ammonia 29.0 (13.1-30.0) umol/L C-Reactive Protein 1.9 H (0.5-1.0) mg/dL Total Protein 8.1 (6.0-8.3) g/dL Albumin 3.3 (3.3-5.0) g/dL Lipase 199 (23-300) U/L Urine Color (Yellow) Urine Appearance (Clear) Urine pH (5.0-8.5) Ur Specific [place] (1.000-1.030) Urine Protein (Negative) Urine Glucose (UA) (Negative) Urine Ketones (Negative) Urine Blood (Negative) Urine Nitrite (Negative) Urine Bilirubin (Negative) Urine Urobilinogen (0.2-1.0) Ur Leukocyte Esterase (Negative) Urine RBC (0-2) Urine WBC (0-5) Ur Squamous Epith Cells (None-Few) Urine Bacteria (None) Ethyl Alcohol < 0.01 L (0.01-0.03) % Lab Acknowledgement Test Added Test Added 06/20/23 06/20/23 Range/Units 19:40 Unknown WBC 23.08 H (4.50-11.00) K/uL RBC 4.29 L (4.30-5.90) m/uL Hgb 13.2 L (13.5-17.5) gm/dL Hct 40.2 (37.0-53.0) % MCV 94 (80-100) fL MCH 31 (26-34) pg MCHC 33 (32-36) gm/dL RDW Coeff of [place] 16.1 H (11.5-15.5) % Plt Count 119 L (140-440) K/uL Neut % (Auto) 85.6 H (42.0-72.0) % Lymph % (Auto) 2.0 L (20-44) % [place] % (Auto) 11.6 H (0.0-11.0) % Eos % (Auto) 0.0 (0.0-7.0) % Baso % (Auto) 0.2 (0.0-3.0) % Neut # (Auto) 19.80 H (1.7-7.0) K/uL Lymph # (Auto) 0.50 L (0.90-2.90) K/uL [place] # (Auto) 2.70 H (0.00-0.90) K/UL Eos # (Auto) 0.00 (0.00-0.50) K/uL Baso # (Auto) 0.00 (0.00-0.30) K/uL Abs Immat Gran (auto) 0.10 (0.00-0.30) K/uL Imm/Tot Granulo (auto) 0.6 % Sodium 135 (135-149) mmol/L Potassium 3.3 L (3.6-5.1) mmol/L Chloride 111 (96-114) mmol/L Carbon Dioxide 18 L (20-32) mmol/L Anion Gap 6 L (7-15) mEq/L BUN 14 (7-30) mg/dL Creatinine 0.9 (0.5-1.5) mg/dL Estimated Creat Clear 74.10 Estimated GFR 97 ml/min Glucose 94 (60-115) mg/dL Lactate 1.6 (0.5-1.9) mmol/L Calcium 7.7 L (8.4-10.6) mg/dL Total Bilirubin (0.1-1.5) mg/dL AST (12-35) U/L ALT (4-50) U/L Alkaline Phosphatase (40-150) U/L Ammonia (13.1-30.0) umol/L C-Reactive Protein (0.5-1.0) mg/dL Total Protein (6.0-8.3) g/dL Albumin (3.3-5.0) g/dL Lipase (23-300) U/L Urine Color Yellow (Yellow) Urine Appearance Cloudy A (Clear) Urine pH 7.0 (5.0-8.5) Ur Specific [place] 1.015 (1.000-1.030) Urine Protein 1+ A (Negative) Urine Glucose (UA) Negative (Negative) Urine Ketones Negative (Negative) Urine Blood 2+ A (Negative) Urine Nitrite Negative (Negative) Urine Bilirubin Negative (Negative) Urine Urobilinogen 0.2 (0.2-1.0) Ur Leukocyte Esterase 3+ A (Negative) Urine RBC 10-25 A (0-2) Urine WBC >100 A (0-5) Ur Squamous Epith Cells Few (None-Few) Urine Bacteria Moderate A (None) Ethyl Alcohol (0.01-0.03) % Lab Acknowledgement <Juno Blanc MD - Last Filed: 06/20/23 16:57> Lab Results 06/20/23 06/20/23 06/20/23 Range/Units 07:46 07:55 08:04 WBC 9.25 (4.50-11.00) K/uL RBC 4.46 (4.30-5.90) m/uL Hgb 13.8 (13.5-17.5) gm/dL Hct 41.9 (37.0-53.0) % MCV 94 (80-100) fL MCH 31 (26-34) pg MCHC 33 (32-36) gm/dL RDW Coeff of [place] 15.9 H (11.5-15.5) % Plt Count 124 L (140-440) K/uL Neut % (Auto) 65.2 (42.0-72.0) % Lymph % (Auto) 17.0 L (20-44) % [place] % (Auto) 16.1 H (0.0-11.0) % Eos % (Auto) 1.1 (0.0-7.0) % Baso % (Auto) 0.5 (0.0-3.0) % Neut # (Auto) 6.03 (1.7-7.0) K/uL Lymph # (Auto) 1.60 (0.90-2.90) K/uL [place] # (Auto) 1.50 H (0.00-0.90) K/UL Eos # (Auto) 0.10 (0.00-0.50) K/uL Baso # (Auto) 0.05 (0.00-0.30) K/uL Abs Immat Gran (auto) 0.01 (0.00-0.30) K/uL Imm/Tot Granulo (auto) 0.1 % Sodium 134 L (135-149) mmol/L Potassium 4.0 (3.6-5.1) mmol/L Chloride 105 (96-114) mmol/L Carbon Dioxide 22 (20-32) mmol/L Anion Gap 7 (7-15) mEq/L BUN 12 (7-30) mg/dL Creatinine 0.6 (0.5-1.5) mg/dL Estimated Creat Clear 74.10 Estimated GFR 109 ml/min Glucose 101 (60-115) mg/dL Lactate 1.3 (0.5-1.9) mmol/L Calcium 8.0 L (8.4-10.6) mg/dL Total Bilirubin 1.2 (0.1-1.5) mg/dL AST 58 H (12-35) U/L ALT 50 (4-50) U/L Alkaline Phosphatase 119 (40-150) U/L Ammonia 29.0 (13.1-30.0) umol/L C-Reactive Protein 1.9 H (0.5-1.0) mg/dL Total Protein 8.1 (6.0-8.3) g/dL Albumin 3.3 (3.3-5.0) g/dL Lipase 199 (23-300) U/L Urine Color (Yellow) Urine Appearance (Clear) Urine pH (5.0-8.5) Ur Specific [place] (1.000-1.030) Urine Protein (Negative) Urine Glucose (UA) (Negative) Urine Ketones (Negative) Urine Blood (Negative) Urine Nitrite (Negative) Urine Bilirubin (Negative) Urine Urobilinogen (0.2-1.0) Ur Leukocyte Esterase (Negative) Urine RBC (0-2) Urine WBC (0-5) Ur Squamous Epith Cells (None-Few) Urine Bacteria (None) Ethyl Alcohol < 0.01 L (0.01-0.03) % Lab Acknowledgement Test Added Test Added 06/20/23 06/20/23 Range/Units 19:40 Unknown WBC 23.08 H (4.50-11.00) K/uL RBC 4.29 L (4.30-5.90) m/uL Hgb 13.2 L (13.5-17.5) gm/dL Hct 40.2 (37.0-53.0) % MCV 94 (80-100) fL MCH 31 (26-34) pg MCHC 33 (32-36) gm/dL RDW Coeff of [place] 16.1 H (11.5-15.5) % Plt Count 119 L (140-440) K/uL Neut % (Auto) 85.6 H (42.0-72.0) % Lymph % (Auto) 2.0 L (20-44) % [place] % (Auto) 11.6 H (0.0-11.0) % Eos % (Auto) 0.0 (0.0-7.0) % Baso % (Auto) 0.2 (0.0-3.0) % Neut # (Auto) 19.80 H (1.7-7.0) K/uL Lymph # (Auto) 0.50 L (0.90-2.90) K/uL [place] # (Auto) 2.70 H (0.00-0.90) K/UL Eos # (Auto) 0.00 (0.00-0.50) K/uL Baso # (Auto) 0.00 (0.00-0.30) K/uL Abs Immat Gran (auto) 0.10 (0.00-0.30) K/uL Imm/Tot Granulo (auto) 0.6 % Sodium 135 (135-149) mmol/L Potassium 3.3 L (3.6-5.1) mmol/L Chloride 111 (96-114) mmol/L Carbon Dioxide 18 L (20-32) mmol/L Anion Gap 6 L (7-15) mEq/L BUN 14 (7-30) mg/dL Creatinine 0.9 (0.5-1.5) mg/dL Estimated Creat Clear 74.10 Estimated GFR 97 ml/min Glucose 94 (60-115) mg/dL Lactate 1.6 (0.5-1.9) mmol/L Calcium 7.7 L (8.4-10.6) mg/dL Total Bilirubin (0.1-1.5) mg/dL AST (12-35) U/L ALT (4-50) U/L Alkaline Phosphatase (40-150) U/L Ammonia (13.1-30.0) umol/L C-Reactive Protein (0.5-1.0) mg/dL Total Protein (6.0-8.3) g/dL Albumin (3.3-5.0) g/dL Lipase (23-300) U/L Urine Color Yellow (Yellow) Urine Appearance Cloudy A (Clear) Urine pH 7.0 (5.0-8.5) Ur Specific [place] 1.015 (1.000-1.030) Urine Protein 1+ A (Negative) Urine Glucose (UA) Negative (Negative) Urine Ketones Negative (Negative) Urine Blood 2+ A (Negative) Urine Nitrite Negative (Negative) Urine Bilirubin Negative (Negative) Urine Urobilinogen 0.2 (0.2-1.0) Ur Leukocyte Esterase 3+ A (Negative) Urine RBC 10-25 A (0-2) Urine WBC >100 A (0-5) Ur Squamous Epith Cells Few (None-Few) Urine Bacteria Moderate A (None) Ethyl Alcohol (0.01-0.03) % Lab Acknowledgement <Tanya Osuna MD - Last Filed: 06/20/23 20:51> Discharge Plan Discharge Clinical Impression: Kidney stone, Acute UTI <Andreea Cortez MD - Last Filed: 06/21/23 19:55> Patient Disposition: Xfer Other <Andreea Cortez MD - Last Filed: 06/21/23 19:55> Prescriptions: No Action No Known Home Medications acetaminophen 325 mg Tablet 650 mg PO TID PRNQty: 100 0RF escitalopram oxalate 10 mg Tablet 10 mg PO DAILY Qty: 30 0RF lactulose 20 gram/30 mL Solution 20 g PO DAILY Qty: 480 0RF omeprazole 20 mg Capsule,Delayed Release(Dr/Ec) 20 mg PO DAILY@0700 Qty: 30 0RF <Andreea Cortez MD - Last Filed: 06/21/23 19:55> Stand Alone Forms: MyHealth Info Instructions <Andreea Cortez MD - Last Filed: 06/21/23 19:55>
--- NOTE | 2023-06-20 07:49 | CRLHL7_ITS ---
For Patients: As a result of the Century Cures Act, medical imaging exams and procedure reports are released immediately into your electronic medical record. You may view this report before your referring provider. If you have questions, please contact your health care provider. INDICATION: Right lower quadrant abdominal pain TECHNIQUE: CT abdomen and pelvis acquired with 118 cc Isovue 370 IV contrast. COMPARISON: CT abdomen/pelvis on 08/12/2022 FINDINGS: LOWER CHEST: Minimal bibasilar and dependent atelectasis. ABDOMEN AND PELVIS: LIVER/BILIARY SYSTEM:Normal sized liver. No focal mass. Mild prominence of the caudate lobe and mild nodular contour suggestive of cirrhosis. The gallbladder is significantly distended. There are numerous stones in the neck and cystic duct. No significant wall thickening or pericholecystic fluid. Sonography is advised for further characterization ADRENALS: Normal SPLEEN:Normal appearance. PANCREAS: Appears normal. KIDNEYS, URETERS and BLADDER:Kidneys normal in size. Low-density lesions noted probably cysts though too small to fully characterize, likely cysts. Right lower pole renal calculus but no evidence of current or recent obstructive uropathy. There is a 6 millimeter stone seen in the right ureterovesicular junction (series number 2, image 128), causing a mild right-sided hydroureteronephrosis. There are no obstructing stones in the left kidney or ureter. There is mild circumferential bladder wall thickening. RETROPERITONEUM and MESENTERY: There is no mass, adenopathy or aortic aneurysm. Atherosclerotic vascular calcifications GASTROINTESTINAL SYSTEM: No evidence of bowel obstruction or inflammation. The appendix is normal. Colonic diverticulosis without CT evidence of acute diverticulitis. PELVIS: No mass or adenopathy. No free fluid. OSSEOUS STRUCTURES and ABDOMINAL WALL: There is an age-appropriate appearance of the osseous structures. Ventral hernia containing fat similar appearance compared to prior exam. OTHER: No free fluid or free air. IMPRESSION: 1. There is a 6 millimeter obstructing stone seen in the right ureterovesicular junction causing mild right-sided hydroureteronephrosis. 2. No evidence of bowel obstruction or inflammation. 3. The appendix is normal in appearance. 4. Cholelithiasis without CT evidence of acute cholecystitis. If there is clinical concern for acute cholecystitis would recommend right upper quadrant abdominal ultrasound. Please note that all CT scans at this facility use dose modulation, iterative reconstruction, and/or weight-based dosing when appropriate to reduce radiation dose to as low as reasonably achievable. Dictated by Ulysses Luna MD @ 06/20/2023 9:34:55 AM (Electronically Signed)
[2023-06-20 07:53] LABS: Basophils Absolute Auto 0.05 K/uL (0.00-0.30); Basophils Percent Auto 0.5 % (0.0-3.0); Eosinophils Percent Auto 1.1 % (0.0-7.0); Hematocrit 41.9 % (37.0-53.0); Hemoglobin* 13.8 gm/dL (13.5-17.5); Immature Granulocytes Abs Auto 0.01 K/uL (0.00-0.30); Immature Granulocytes Pct Auto 0.1 %; Mean Corpuscular HGB Conc 33 gm/dL (32-36); Mean Corpuscular Hemoglobin 31 pg (26-34); Mean Corpuscular Volume 94 fL (80-100); Monocytes Percent Auto 16.1 % (0.0-11.0); Neutrophils Absolute Auto 6.03 K/uL (1.7-7.0); Neutrophils Percent Auto 65.2 % (42.0-72.0); Platelet Count* 124 K/uL (140-440); RDW Coefficient of Variation % 15.9 % (11.5-15.5); Red Blood Count 4.46 m/uL (4.30-5.90); White Blood Count* 9.25 K/uL (4.50-11.00)
[2023-06-20 07:55] LABS: Slide Review Reflex No
[2023-06-20 08:02] LABS: Lactate* 1.3 mmol/L (0.5-1.9)
[2023-06-20] MEDS: KETOROLAC 15 MG/ML inj IVP (08:22)
[2023-06-20 08:25] LABS: Albumin* 3.3 g/dL (3.3-5.0); Chloride* 105 mmol/L (96-114); Sodium* 134 mmol/L (135-149)
[2023-06-20 08:27] LABS: Creatinine* 0.6 mg/dL (0.5-1.5); Estimated Glomerular Filt Rate 109 ml/min
[2023-06-20 08:28] LABS: Alanine Aminotransferase* 50 U/L (4-50); Alkaline Phosphatase* 119 U/L (40-150); Anion Gap 7 mEq/L (7-15); Aspartate Amino Transferase* 58 U/L (12-35); Bilirubin Total* 1.2 mg/dL (0.1-1.5); Blood Urea Nitrogen* 12 mg/dL (7-30); Carbon Dioxide* 22 mmol/L (20-32); Glucose* 101 mg/dL (60-115); Lipase* 199 U/L (23-300); Total Protein* 8.1 g/dL (6.0-8.3)
[2023-06-20 08:31] LABS: C Reactive Protein* 1.9 mg/dL (0.5-1.0); Ethanol* < 0.01 % (0.01-0.03)
[2023-06-20 09:46] LABS: Appearance Urine Cloudy (Clear); Bilirubin Urine Negative (Negative); Blood Urine 2+ (Negative); Color Urine Yellow (Yellow); Glucose Urine Negative (Negative); Ketones Urine Negative (Negative); Leukocyte Esterase Urine 3+ (Negative); Nitrite Urine Negative (Negative); Protein Urine 1+ (Negative); Specific Gravity Urine 1.015 (1.000-1.030); Urobilinogen Urine 0.2 (0.2-1.0)
--- NOTE | 2023-06-20 09:48 | ED.NURSE ---
Report given to [place] RN. Patient will drive himself to [facility].
[2023-06-20 09:55] LABS: WBC Urine >100 (0-5)
[2023-06-20 09:56] LABS: Bacteria Urine Moderate; Squamous Epithelial Cell Urine Few (None-Few)
[2023-06-20] MEDS: cefTRIAXone 1 GM in 0.9 % SODIUM CHLORIDE Mini-bag 100 ML IVPB (11:17)
[2023-06-20] MEDS: HYDROmorphone 0.5 mg/0.5 ml inj IVP ×2 (11:21→16:02)
--- NOTE | 2023-06-20 16:00 | ED.NURSE ---
Patient rechecked and found to have temp of 101.8 temporally and HR of 121. MD notified and new ordered received.
[2023-06-20] MEDS: 0.9 % SODIUM CHLORIDE 1000 ml 1,000 ML IV (16:11)
[2023-06-20] MEDS: ACETAMINOPHEN 500 MG TABLET 1000 MG PO (16:11)
--- NOTE | 2023-06-20 17:22 | ED.NURSE ---
Patient complained of arm pain at IV infusion site. Arm noted to be taunt and swollen. IV was stopped, infusing normal saline. Ice pack placed and MD notified. A new IV was started in right AC.
--- NOTE | 2023-06-20 18:41 | ED.NURSE ---
Patient readied for EMS transports however BP are trending downwards pressures at 90/54, 86/58 amd 89/55. Concern for further dropping while in transit prompted provided to order Norepi titration to reach Map of 65 or higher. Provider also contacting [facility] to update patient status.
[2023-06-20] MEDS: LACTATED RINGERS 1000 ML 1,000 ML IV (18:46)
[2023-06-20] MEDS: LACTATED RINGERS 1000 ML 1,000 ML 500 ML IV (19:30)
[2023-06-20] MEDS: PIPERACILLIN/TAZOBACTAM 3.375 GM in 0.9 % SODIUM CHLORIDE Mini-bag 100 ML IVPB (19:30)
[2023-06-20 19:45] LABS: Lactate* 1.6 mmol/L (0.5-1.9)
[2023-06-20 19:46] LABS: Basophils Percent Auto 0.2 % (0.0-3.0); Hematocrit 40.2 % (37.0-53.0); Hemoglobin* 13.2 gm/dL (13.5-17.5); Immature Granulocytes Pct Auto 0.6 %; Mean Corpuscular HGB Conc 33 gm/dL (32-36); Mean Corpuscular Hemoglobin 31 pg (26-34); Mean Corpuscular Volume 94 fL (80-100); Monocytes Percent Auto 11.6 % (0.0-11.0); Neutrophils Percent Auto 85.6 % (42.0-72.0); Platelet Count* 119 K/uL (140-440); RDW Coefficient of Variation % 16.1 % (11.5-15.5); Red Blood Count 4.29 m/uL (4.30-5.90); White Blood Count* 23.08 K/uL (4.50-11.00)
[2023-06-20 19:50] LABS: Slide Review Reflex No
[2023-06-20 20:04] LABS: Chloride* 111 mmol/L (96-114); Potassium* 3.3 mmol/L (3.6-5.1); Sodium* 135 mmol/L (135-149)
[2023-06-20 20:07] LABS: Anion Gap 6 mEq/L (7-15); Blood Urea Nitrogen* 14 mg/dL (7-30); Calcium* 7.7 mg/dL (8.4-10.6); Carbon Dioxide* 18 mmol/L (20-32); Creatinine* 0.9 mg/dL (0.5-1.5); Estimated Glomerular Filt Rate 97 ml/min; Glucose* 94 mg/dL (60-115)
--- NOTE | 2023-06-20 21:13 | ED.NURSE ---
Handoff report received from RN. Pt up to bathroom with standby assist. Urinates ~400 mL in urinal. Denies pain. Sheets changed and call light within reach.
--- NOTE | 2023-06-20 22:47 | ED.NURSE ---
Call to [employer] and RN to RN handoff report given. DIRECTOR OF DEVELOPMENT AND MARKETING updated of pt's need for oxygen via oxymask (2 LPM) and titration in Norepi drip to 0.08 mcg/kg/min.
== END 2023-06-20 22:54 | disposition other institution (70) ==
PROVIDERS: Emergency Medicine; Family Medicine; Emergency Provider Family Medicine
DX: N20.0 Calculus of kidney (principal); N39.0 Urinary tract infection, site not specified
CPT/HCPCS: 36415; 74177; 80048; 80053; 81003; 81015; 82077; 82140; 83605; 83690; 85025; 86140; 87086; 87186; 94761; 96365; 96366; 96372; 96375; 99284; 99291; A9270; J0696; J1170; J1885; J2543; J3410; J7030; J7120; Q9967

== ENCOUNTER 2023-06-20 22:32 | Outpatient (CLI) | payer BC, SELFPAY ==
--- NOTE | 2023-07-06 10:35 | PC.SOCIAL ---
Social work: Received call from Hermelinda Aparicio [facility], stating there is an open [facility] case. Secure emailed requested MD note from 06/20/23 ED visit.
== END 2023-06-20 22:33 | disposition home or self-care (01) ==
LOC: AMB 06-21 10:27
PROVIDERS: Visit Provider Family Medicine
DX: N13.2 Hydronephrosis with renal and ureteral calculous obstruction (principal); A41.9 Sepsis, unspecified organism
CPT/HCPCS: A0425; A0434

== ENCOUNTER 2023-07-05 11:53 | Outpatient (CLI) | payer MEDICAID, SELFPAY ==
--- OUTSIDE RECORDS SUMMARY | 2023-07-09 03:21 | XMS_ITS | Clinical Summary ---
Author Name Unknown Organization [facility] Address [place], [place] [address] Care Team Providers Care [employer] Name Role Phone Nat Mccoy Primary Care Provider + [phone] [facility] Care, Ag Unavailable [phone] Allergies No known active allergies Medications Medication [...] Encounters Date Type Department Care Team Description 07/06/2023 Telephone [facility] [address] [place] [address] Cecy Nunes RN 07/05/2023 11:00 AM SANDBLAST OPERATOR Home Care Visit [facility] [address] [place] [phone] Puja Hirsch, RN SN - OASIS DISCHARGE 07/05/2023 Home Care Visit [facility] [address] [place] [phone] Depuydt, Vida M, RN CARE COORDINATION 07/04/2023 9:00 AM SANDBLAST OPERATOR Home Care Visit [facility] [address] [place] [address] Drew Pena, RN SN - MISSED VISIT 07/03/2023 Home Care Visit [facility] [address] [place] [place] [address] Lena Ron, MORTGAGE LOAN REVIEWER CARE COORDINATION 07/02/2023 Home Care Visit [facility] [address] [place] [address], [place] [address] Carl Haddad, PT CARE COORDINATION 06/28/2023 10:00 AM SANDBLAST OPERATOR Home Care Visit [facility] [address] [place] [address], [place] [address] Drew Pena, RN SN IV - START OF CARE 06/28/2023 Plan of Care Documentation [address] [place] [address] 06/28/2023 Patient Outreach [facility] [address] [place] [address] Mary Mayer, RN Primary RN Care Management; [facility] 06/26/2023 Travel 06/21/2023 3:40 PM SANDBLAST OPERATOR Anesthesia Event [address] [address] Dave Peterson CRNA Dahl, Ashley Rose Dragavon, MD 06/21/2023 3:10 PM SANDBLAST OPERATOR - 06/21/2023 4:10 PM SANDBLAST OPERATOR Surgery [address] [address] Chao Villagomez MD CYSTOSCOPY. RIGHT PLACEMENT OF URETERAL STENT, RIGHT RETROGRADES PYELOGRAM 06/21/2023 Travel 06/20/2023 11:37 PM SANDBLAST OPERATOR - 06/27/2023 3:50 PM SANDBLAST OPERATOR Hospital Encounter [address] [address] s, U Hospitalist Tierra Almendarez, MD Lorna Guillen Puskar, MBBS Kroschel, David Luca, MD La, Chip Arthur MD Septic shock [...] Comments Blood Pressure 130/62 07/05/2023 11:15 AM SANDBLAST OPERATOR Pulse 94 07/05/2023 11:15 AM SANDBLAST OPERATOR Temperature 36.9 ??C (98.5 ??F) 07/05/2023 1 1:15 AM SANDBLAST OPERATOR Respiratory Rate 22 07/05/2023 11:1 5 AM SANDBLAST OPERATOR Oxygen Saturation 94% 07/05/2023 11: 15 AM SANDBLAST OPERATOR RA Inhaled Oxygen Concentration - - Weight 106.3 kg (234 lb 6.4 oz) 06/24/2023 3:46 AM SANDBLAST OPERATOR Height 172.7 cm (5' 8) 06/20/2023 11:4 5 PM SANDBLAST OPERATOR Body Mass Index 35.64 06/20/2023 11:45 PM SANDBLAST OPERATOR Plan of Treatment Upcoming Encounters Date Type Department Care Team (Late st Contact Info) Description 07/26/2023 2:10 PM SANDBLAST OPERATOR Phone Office Visit [facility] [address] [facility] [address] [place] [address] Cuba Escudero MD [address] [place] [phone] Health Maintenance Due Date Last Done Comments [...] 08/12, 08/12/2012 Medical Devices Implanted Type Area Shear Operator Automatic Device Identifier Shelf Expiration Date Model / Serial / Lot Stent Uret [id number] Percuflex Hydroplus - [id number] Implanted:Qty: 1 on 06/21/2023 by Chao Villagomez MD at Right: Ureter [facility] Urology 02/09/2026 [id number] / / [id number] Procedures Procedure Name Priority Date/Time Associated Diagnosis Comments SCAN-CARDIAC STRIP 06/27/2023 7: 43 AM SANDBLAST OPERATOR CBC WITH AUTO DIFFERENTIAL Early AM 06/27/2023 6:18 AM SANDBLAST OPERATOR CBC WITH AUTO DIFFERENTIAL Early AM 06/27/2023 6:18 AM SANDBLAST OPERATOR SCAN-CARDIAC STRIP 06/27/2023 3: 28 AM SANDBLAST OPERATOR XR CHEST 1 VIEW PICC OR CVAD PLACEMENT PORTABLE STAT 06/26/2023 6:44 PM SANDBLAST OPERATOR SCAN-CARDIAC STRIP 06/26/2023 3: 09 PM SANDBLAST OPERATOR C-REACTIVE PROTEIN Timed 06/26/2023 1: 30 PM SANDBLAST OPERATOR BASIC METABOLIC PANEL SID 06/26/2023 1:30 PM SANDBLAST OPERATOR SCAN-CARDIAC STRIP 06/26/2023 10 :56 AM SANDBLAST OPERATOR SCAN-CARDIAC STRIP 06/25/2023 11 :00 PM SANDBLAST OPERATOR SCAN-CARDIAC STRIP 06/25/2023 5: 43 PM SANDBLAST OPERATOR SCAN-CARDIAC STRIP 06/25/2023 7: 05 AM SANDBLAST OPERATOR SCAN-CARDIAC STRIP 06/25/2023 12 :06 AM SANDBLAST OPERATOR SCAN-CARDIAC STRIP 06/24/2023 8: 00 PM SANDBLAST OPERATOR SCAN-CARDIAC STRIP 06/24/2023 4: 42 PM SANDBLAST OPERATOR SCAN-CARDIAC STRIP 06/23/2023 3: 23 PM SANDBLAST OPERATOR SCAN-CARDIAC STRIP 06/23/2023 8: 00 AM SANDBLAST OPERATOR SCAN-CARDIAC STRIP 06/23/2023 12 :29 AM SANDBLAST OPERATOR GLUCOSE METER Timed 06/22/2023 9:10 PM SANDBLAST OPERATOR SCAN-CARDIAC STRIP 06/22/2023 3: 05 PM SANDBLAST OPERATOR C-REACTIVE PROTEIN Timed 06/22/2023 1: 30 PM SANDBLAST OPERATOR BLOOD CULTURE Today 06/22/2023 1:30 PM SANDBLAST OPERATOR BLOOD CULTURE Today 06/22/2023 1:22 PM SANDBLAST OPERATOR GLUCOSE METER Timed 06/22/2023 11:57 AM SANDBLAST OPERATOR SCAN CORRESP-IMAGING 06/22/2023 9:43 AM SANDBLAST OPERATOR SCAN-CARDIAC STRIP 06/22/2023 8: 00 AM SANDBLAST OPERATOR GLUCOSE METER Timed 06/22/2023 6:12 AM SANDBLAST OPERATOR PLATELET ESTIMATE Timed 06/22/2023 5:1 8 AM SANDBLAST OPERATOR RED CELL MORPHOLOGY Timed 06/22/2023 5 :18 AM SANDBLAST OPERATOR CBC W PLT NO DIFF Early AM 06/22/2023 5:1 8 AM SANDBLAST OPERATOR GLUCOSE METER Timed 06/22/2023 12:14 AM SANDBLAST OPERATOR SCAN-CARDIAC STRIP 06/21/2023 11 :35 PM SANDBLAST OPERATOR SCAN-CARDIAC STRIP 06/21/2023 11 :30 PM SANDBLAST OPERATOR GLUCOSE METER Timed 06/21/2023 6:50 PM SANDBLAST OPERATOR URINE CULTURE Today 06/21/2023 5:44 PM SANDBLAST OPERATOR XR RETROGRADE PYELOGRAM W/WO KUB Routine 06/21/2023 4:29 PM SANDBLAST OPERATOR CYSTOSCOPY PLACEMENT URETERAL STENT RETROGRADES 06/21/2023 3:30 PM SANDBLAST OPERATOR Right ureteral stone Case Notes NPO SCAN CORRESP-IMAGING 06/21/2023 12:30 PM SANDBLAST OPERATOR ECHO TTE COMPLETE W CONTRAST Routine 06/21/2023 12:15 PM SANDBLAST OPERATOR GLUCOSE METER Timed 06/21/2023 11:55 AM SANDBLAST OPERATOR SCAN-CARDIAC STRIP 06/21/2023 9: 45 AM SANDBLAST OPERATOR BLOOD CULTURE Today 06/21/2023 9:28 AM SANDBLAST OPERATOR BLOOD CULTURE MULTIPLEX PCR Timed 06/21/2023 9:20 AM SANDBLAST OPERATOR BLOOD CULTURE Today 06/21/2023 9:20 AM SANDBLAST OPERATOR LACTATE VENOUS STAT 06/21/2023 9:20 AM SANDBLAST OPERATOR PROCALCITONIN STAT 06/21/2023 9:20 AM SANDBLAST OPERATOR SCAN-CARDIAC STRIP 06/21/2023 9: 17 AM SANDBLAST OPERATOR GLUCOSE METER Timed 06/21/2023 5:57 AM SANDBLAST OPERATOR XR CHEST 1 VIEW PORTABLE Routine 06/21/2023 5:51 AM SANDBLAST OPERATOR MAGNESIUM SID 06/21/2023 5:18 AM SANDBLAST OPERATOR POTASSIUM SID 06/21/2023 5:18 AM SANDBLAST OPERATOR SODIUM SID 06/21/2023 5:18 AM SANDBLAST OPERATOR WHITE BLOOD COUNT SID 06/21/2023 5:1 8 AM SANDBLAST OPERATOR PRO-BNP Today 06/21/2023 5:18 AM SANDBLAST OPERATOR CREATININE Today 06/21/2023 5:18 AM SANDBLAST OPERATOR PLATELET COUNT Today 06/21/2023 5:18 AM SANDBLAST OPERATOR HEMOGLOBIN Today 06/21/2023 5:18 AM SANDBLAST OPERATOR PROTIME-INR Today 06/21/2023 2:51 AM SANDBLAST OPERATOR GLUCOSE METER Timed 06/21/2023 12:44 AM SANDBLAST OPERATOR SCAN-CARDIAC STRIP 06/20/2023 11 :59 PM SANDBLAST OPERATOR from Last 3 Months Results * SCAN-CARDIAC STRIP (06/27/2023 7:43 AM SANDBLAST OPERATOR) Scanner OTHER * (ABNORMAL) CBC WITH AUTO DIFFERENTIAL (06/27/2023 6:18 AM SANDBLAST OPERATOR) WHITE BLOOD COUNT 9.0 4.5 - 11.0 thou/cu mm 06/27/2023 6:33 AM [facility] RED BLOOD COUNT 4.17(L) 4.30 - 5.90 mil/cu mm 06/27/2023 6:33 AM [facility] HEMOGLOBIN 12.6(L) 13.5 - 17.5 g/dL 06/27/2023 6:33 AM [facility] HEMATOCRIT 38.2 37.0 - 53.0 % 06/27/2023 6:33 AM [facility] MCV 92 80 - 100 fL 06/27/2023 6:33 AM [facility] MCH 30.2 26.0 - 34.0 pg 06/27/2023 6:33 AM [facility] MCHC 33.0 32.0 - 36.0 g/dL 06/27/2023 6:33 AM [facility] RDW 16.0(H) 11.5 - 15.5 % 06/27/2023 6:33 AM [facility] PLATELET COUNT 131(L) 140 - 440 thou/cu mm 06/27/2023 6:33 AM [facility] MPV 9.2 6.5 - 11.0 fL 06/27/2023 6:33 AM [facility] NRBC 0.0 % 06/27/2023 6:33 AM [facility] ABS NRBC 0.0 thou /cu mm 06/27/2023 6:33 AM [facility] % NEUT 59.7 % 06/27/2023 6:33 AM [facility] % LYMPH 26.4 % 06/27/2023 6:33 AM [facility] % MONO 8.7 % 06/27/2023 6:33 AM [facility] % EOS 3.4 % 06/27/2023 6:33 AM [facility] % BASO 0.9 % 06/27/2023 6:33 AM [facility] % IMMATURE GRAN (METAS,MYELOS,FL OS) 0.9 % 06/27/2023 6:33 AM [facility] ABSOLUTE NEUTROPHILS 5.4 1.7 - 7.0 thou/cu mm 06/27/2023 6:33 AM [facility] ABSOLUTE LYMPHOCYTES 2.4 0.9 - 2.9 thou/cu mm 06/27/2023 6:33 AM [facility] ABSOLUTE MONOCYTES 0.8 <0.9 thou/cu mm 06/27/2023 6:33 AM [facility] ABSOLUTE EOSINOPHILS 0.3 <0.5 thou/cu mm 06/27/2023 6:33 AM [facility] ABSOLUTE BASOPHILS 0.1 <0.3 thou/cu mm 06/27/2023 6:33 AM [facility] ABSOLUTE IMMATURE GRANULOCYTES(MET ,MYELOS,PROS) 0.1 <0.3 thou/cu mm 06/27/2023 6:33 AM [facility] Blood BLOOD SPECIMEN / Unknown Non-Lab Venipuncture / Unknown 06/27/2023 6:18 AM SANDBLAST OPERATOR 06/27/2023 6:27 AM [facility] Cuba Escudero MD HEMATOLOGY LABORATORY SENDOUT INTERNAL ZIP [phone] [place] [address] * SCAN-CARDIAC STRIP (06/27/2023 3:28 AM SANDBLAST OPERATOR) Scanner OTHER * XR Chest PICC Line Placement Portable (06/26/2023 6:44 PM SANDBLAST OPERATOR) Anatomical Region Laterality Modality HEART, THORAX, CHEST Computed Ra diography 06/26/2023 6:44 PM SANDBLAST OPERATOR Impressions 06/26/2023 10:06 PM SANDBLAST OPERATOR Left PICC with tip in the SVC in good location. Mild bibasilar infiltrates. Degenerative changes in the right shoulder. Narrative 06/26/2023 10:06 PM SANDBLAST OPERATOR For Patients: As a result of the Cures Act, medical imaging exams and procedure reports are released immediately into your electronic medical record. You may view this report before your referring provider. If you have questions, please contact your health care provider. EXAM: XR CHEST 1 VIEW PICC OR CVAD PLACEMENT PORTABLE LOCATION: [facility] MEDICAL IMAGING DATE: 06/26/2023 INDICATION: Line [...] VIEW PICC OR CVAD PLACEMENT PORTABLE LOCATION: [facility] MEDICAL IMAGING DATE: 06/26/2023 INDICATION: Line placement. COMPARISON: None. IMPRESSION: Left PICC with tip in the SVC in good location. Mild bibasilarinfiltrates. Degenerative changes in the right shoulder. Chip Samuel MD GENERAL IMAGING * SCAN-CARDIAC STRIP (06/26/2023 3:09 PM SANDBLAST OPERATOR) Scanner OTHER * (ABNORMAL) C-REACTIVE PROTEIN (06/26/2023 1:30 PM SANDBLAST OPERATOR) Only the most recent of2 resultswithin the time period is included. C-REACTIVE PROTEIN 2.1(H) <0.5 mg/dL 06/26/2023 1:58 PM [facility] Blood BLOOD SPECIMEN / Unknown Butterfly / Unknown 06/26/2023 1:30 PM SANDBLAST OPERATOR 06/26/2023 1:35 PM [facility] Cuba Escudero MD CHEMISTRY LABORATORY SENDOUT INTERNAL ZIP [phone] [place] [address] * (ABNORMAL) BASIC METABOLIC PANEL (06/26/2023 1:30 PM SANDBLAST OPERATOR) Pathologist [facility] SODIUM 137 136 - 145 mmol/L 06/26/2023 2:02 PM [facility] POTASSIUM 4.0 3.5 - 5.1 mmol/L 06/26/2023 2:02 PM [facility] CHLORIDE 106 98 - 107 mmol/L 06/26/2023 2:02 PM [facility] CO2,TOTAL 28 22 - 29 mmol/L 06/26/2023 2:02 PM [facility] ANION GAP 3(L) 5 - 18 06/26/2023 2:02 PM [facility] GLUCOSE 96 70 - 99 mg/dL 06/26/2023 2:02 PM [facility] CALCIUM 8.4(L) 8.8 - 10.2 mg/dL 06/26/2023 2:02 PM [facility] BUN 11 8 - 23 mg/dL 06/26/2023 2:02 PM [facility] CREATININE 0.46(L) 0.70 - 1.20 mg/dL 06/26/2023 2:02 PM [facility] BUN/CREAT RATIO 24(H) 10 - 20 2:02 PM [facility] eGFR >90 >90 mL/min/1.7 3m2 06/26/2023 2:02 PM [facility] Comment:As of 2021, eG FR is calculated by the CKD-EPI creatinine equation without race adjustment. ??eGFR can be influenced by muscle mass, exercise, and diet. ??The reported eGFR is an estimation only and is only applicable if the renal function is stable. Blood BLOOD SPECIMEN / Unknown Butterfly / Unknown 06/26/2023 1:30 PM SANDBLAST OPERATOR 06/26/2023 1:35 PM SANDBLAST OPERATOR Cuba Escudero MD CHEMISTRY LABORATORY SENDOUT INTERNAL ZIP [phone] [place] [address] * SCAN-CARDIAC STRIP (06/26/2023 10:56 AM SANDBLAST OPERATOR) Scanner OTHER * SCAN-CARDIAC STRIP (06/25/2023 11:00 PM SANDBLAST OPERATOR) Scanner OTHER * SCAN-CARDIAC STRIP (06/25/2023 5:43 PM SANDBLAST OPERATOR) Scanner OTHER * SCAN-CARDIAC STRIP (06/25/2023 7:05 AM SANDBLAST OPERATOR) Scanner OTHER * SCAN-CARDIAC STRIP (06/25/2023 12:06 AM SANDBLAST OPERATOR) Scanner OTHER * SCAN-CARDIAC STRIP (06/24/2023 8:00 PM SANDBLAST OPERATOR) Scanner OTHER * SCAN-CARDIAC STRIP (06/24/2023 4:42 PM SANDBLAST OPERATOR) Scanner OTHER * SCAN-CARDIAC STRIP (06/23/2023 3:23 PM SANDBLAST OPERATOR) Scanner OTHER * SCAN-CARDIAC STRIP (06/23/2023 8:00 AM SANDBLAST OPERATOR) Scanner OTHER * SCAN-CARDIAC STRIP (06/23/2023 12:29 AM SANDBLAST OPERATOR) Scanner OTHER * (ABNORMAL) GLUCOSE METER (06/22/2023 9:10 PM SANDBLAST OPERATOR) Only the most recent of8 resultswithin the time period is included. Pathologist [facility] GLUCOSE METER 131(H) 65 - 100 mg/dL 06/22/2023 9:11 PM SANDBLAST OPERATOR LABORATORY Blood BLOOD SPECIMEN / Unknown 06/22/2023 9:10 PM SANDBLAST OPERATOR 06/22/2023 9:11 PM SANDBLAST OPERATOR Bruce APONTE CHEMISTRY LABORATORY SENDOUT INTERNAL ZIP [phone] [place] [address] * SCAN-CARDIAC STRIP (06/22/2023 3:05 PM SANDBLAST OPERATOR) Scanner OTHER * BLOOD CULTURE (06/22/2023 1:30 PM SANDBLAST OPERATOR) Only the most recent of4 resultswithin the time period is included. [facility] CULTURE No Growth. 06/26/2023 6:40 PM SANDBLAST OPERATOR [facility] Blood BLOOD SPECIMEN / Unknown Venipuncture / Unknown 06/22/2023 1:30 PM SANDBLAST OPERATOR 06/22/2023 1:54 PM SANDBLAST OPERATOR Bruce APONTE MICROBIOLOGY Performing Organization Address City/[facility]/ZIP Co de Phone Number [facility] [address] [place] [address], * SCAN CORRESP-IMAGING (06/22/2023 9:43 AM SANDBLAST OPERATOR) Only the most recent of2 resultswithin the time period is included. Anatomical Region Laterality Modality Other Narrative 06/22/2023 9:43 AM SANDBLAST OPERATOR Ordered by an unspecified provider. Other Clinical Staff OTHER * SCAN-CARDIAC STRIP (06/22/2023 8:00 AM SANDBLAST OPERATOR) Scanner OTHER * (ABNORMAL) RED CELL MORPHOLOGY (06/22/2023 5:18 AM SANDBLAST OPERATOR) [facility] POLYCHROMASIA Slight 06/22/2023 6:40 AM [facility] RBC COMMENT Present(A) RBC morphology appears normal, RBC morphology within normal limits for newborns. 06/22/2023 6:40 AM SANDBLAST OPERATOR LABORATORY Blood BLOOD SPECIMEN / Unknown Venipuncture / Unknown 06/22/2023 5:18 AM SANDBLAST OPERATOR 06/22/2023 5:29 AM SANDBLAST OPERATOR Kdgina Velizchris [facility] Performing Organization Address City/[facility]/ZIP Co de Phone Number LABORATORY SENDOUT INTERNAL ZIP [phone] [place] [phone] * (ABNORMAL) PLATELET ESTIMATE (06/22/2023 5:18 AM SANDBLAST OPERATOR) PLATELET ESTIMATE Decreased (A) Adequate, No estimate 06/22/2023 6:40 AM [facility] Blood BLOOD SPECIMEN / Unknown Venipuncture / Unknown 06/22/2023 5:18 AM SANDBLAST OPERATOR 06/22/2023 5:29 AM SANDBLAST OPERATOR Bruce Rothman [facility] Performing Organization Address City/[facility]/ZIP Co de Phone Number LABORATORY SENDOUT INTERNAL ZIP [phone] [place] [address] * (ABNORMAL) CBC W PLT NO DIFF (06/22/2023 5:18 AM SANDBLAST OPERATOR) WHITE BLOOD COUNT 8.3 4.5 - 11.0 thou/cu mm 06/22/2023 6:40 AM [facility] RED BLOOD COUNT 3.82(L) 4.30 - 5.90 mil/cu mm 06/22/2023 6:40 AM [facility] HEMOGLOBIN 11.8(L) 13.5 - 17.5 g/dL 06/22/2023 6:40 AM [facility] HEMATOCRIT 35.9(L) 37.0 - 53.0 % 06/22/2023 6:40 AM [facility] MCV 94 80 - 100 fL 06/22/2023 6:40 AM [facility] MCH 30.9 26.0 - 34.0 pg 06/22/2023 6:40 AM [facility] MCHC 32.9 32.0 - 36.0 g/dL 06/22/2023 6:40 AM SANDBLAST OPERATOR LABORATORY RDW 16.3(H) 11.5 - 15.5 % 06/22/2023 6:40 AM SANDBLAST OPERATOR [facility] PLATELET COUNT 91(L) 140 - 440 thou/cu mm 06/22/2023 6:40 AM SANDBLAST OPERATOR [facility] MPV 9.6 6.5 - 11.0 fL 06/22/2023 6:40 AM SANDBLAST OPERATOR LABORATORY NRBC 0.0 % 06/22/2023 6:40 AM SANDBLAST OPERATOR [facility] ABS NRBC 0.0 thou /cu mm 06/22/2023 6:40 AM [facility] Blood BLOOD SPECIMEN / Unknown Venipuncture / Unknown 06/22/2023 5:18 AM SANDBLAST OPERATOR 06/22/2023 5:29 AM SANDBLAST OPERATOR Bruce APONTE HEMATOLOGY [facility] SENDOUT INTERNAL [facility] [id number] [place] [address] * SCAN-CARDIAC STRIP (06/21/2023 11:35 PM SANDBLAST OPERATOR) Scanner OTHER * SCAN-CARDIAC STRIP (06/21/2023 11:30 PM SANDBLAST OPERATOR) Scanner OTHER * URINE CULTURE (06/21/2023 5:44 PM SANDBLAST OPERATOR) CULTURE No growth (<1,000 CFU/mL) 06/22/2023 3:38 PM SANDBLAST OPERATOR [facility] Urine URINE SPECIMEN / Unknown Non-Blood / Unknown 06/21/2023 5:44 PM SANDBLAST OPERATOR 06/21/2023 5:52 PM SANDBLAST OPERATOR Bruce APONTE MICROBIOLOGY [facility] [address] [place] [address], [place] * XR RETROGRADE PYELOGRAM W/WO KUB (06/21/2023 4:29 PM SANDBLAST OPERATOR) Anatomical Region Laterality Modality KIDNEYS, Abdomen Computed Radiog barry 06/21/2023 4:29 PM SANDBLAST OPERATOR Impressions 06/21/2023 5:50 PM SANDBLAST OPERATOR Fluoroscopic services were provided to the urology [...] for additional details. Narrative 06/21/2023 5:50 PM SANDBLAST OPERATOR For Patients: As a result of the Cures Act, medical imaging exams and procedure reports are released immediately into your electronic medical record. You may view this report before your referring provider. If you have questions, please contact your health care provider. EXAM: XR RETROGRADE PYELOGRAM W/WO KUB LOCATION: [facility] MEDICAL IMAGING DATE: 06/21/2023 INDICATION: Eval [...] EXAM: XR RETROGRADE PYELOGRAM W/WO KUB LOCATION: [facility] MEDICAL IMAGING DATE: 06/21/2023 INDICATION: Eval suspected/known [...] TTE COMPLETE W CONTRAST (06/21/2023 12:15 PM SANDBLAST OPERATOR) EJECTION FRACTION 60-65% PROSOLV Anatomical Region Laterality Modality Ultrasound 06/21/2023 10:4 5 AM SANDBLAST OPERATOR Narrative 06/21/2023 3:32 PM [place] [address] Main: [email or web address] ? Transthoracic Echo Report MICHELLE KLEIN Hannyluli ID: [id number] Age: 62 : 1960 Ordering Provider: JUSTIN ALMENDAREZ Exam Date: 06/21/2023 10:45 Gender: M Fleet Driver: TUTU Height: 68 in BSA: 2.17 m?? BP: 101 / 67 Weight: 231 lbs BMI: 35.1 kg/m?? HR: 92 Location: Inpatient (Portable) Rhythm: Sinus Tachycardia Procedure Components: 2D imaging with contrast, Color Doppler, Spectral Doppler Indications: Dyspnea Technical Quality: Fair, Technically difficult study Contrast: Definity Constrast Dose (ml): 0.15 [facility]#: [id number] Final Conclusion 1. 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 BP: 101 / 67 Weight: 231 lbs BMI: 35.1 kg/m?? HR: 92 Location: Inpatient (Portable) Rhythm: Sinus Tachycardia Procedure Components: 2D imaging with contrast, Color Doppler, SpectralDoppler Indications: Dyspnea Technical Quality: Fair, Technically difficult study Contrast: Definity Constrast Dose (ml): 0.15 [facility]#: [id number] Final Conclusion 1. Normal left ventricular chamber [...] Aortic Root ZScore: 1.09 Fawad Alba MD [facility] Accredited Site (Electronically Signed) Final Date: 21 June 2023 15:31 ICD-10 Codes: 786.09 Justin Almendarez MD ECHO ORD * SCAN-CARDIAC STRIP (06/21/2023 9:45 AM SANDBLAST OPERATOR) Scanner OTHER * (ABNORMAL) BLOOD CULTURE MULTIPLEX PCR (06/21/2023 9:20 AM SANDBLAST OPERATOR) Organism(s) Detected Staphylococcus aureus(AA) No organism targets detected., Invalid 3 10:20 AM SANDBLAST OPERATOR [facility] Resistance Gene(s) None detected None detected 3 10:20 AM SANDBLAST OPERATOR [facility] CTX-M (ESBL-resistance gene) N/A 3 10:20 AM SANDBLAST OPERATOR [facility] IMP (carbapenem-resistan ce gene) N/A NOT Detected, N/A 3 10:20 AM SANDBLAST OPERATOR [facility] KPC (carbapenem-resistan ce gene) N/A NOT Detected, N/A 3 10:20 AM SANDBLAST OPERATOR [facility] mcr-1 (colistin-resistance gene) N/A 3 10:20 AM SANDBLAST OPERATOR [facility] mecA/C (methicillin-resista nce gene) N/A 3 10:20 AM SANDBLAST OPERATOR [facility] mecA/C and MREJ (methicillin-resista nce gene) NOT Detected 3 10:20 AM SANDBLAST OPERATOR [facility] NDM (carbapenem-resistan ce gene) N/A NOT Detected, N/A 3 10:[address] [facility] OXA-48 like (carbapenem-resistan ce gene) N/A NOT Detected, N/A 3 10:[address] [facility] van A/B (vancomycin-resistan ce genes) N/A 3 10:20 AM SANDBLAST OPERATOR [facility] VIM (carbapenem-resistan ce gene) N/A NOT Detected, N/A 3 10:20 AM SANDBLAST OPERATOR [facility] Enterococcus faecalis NOT Detected 3 10:20 AM SANDBLAST OPERATOR [facility] Enterococcus faecium NOT Detected 3 10:20 AM SANDBLAST OPERATOR [facility] Listeria monocytogenes NOT Detected 3 10:20 AM SANDBLAST OPERATOR [facility] Staphylococcus Detected 3 10:20 AM SANDBLAST OPERATOR [facility] Staphlococcus aureus Detected 05/26 3 10:20 AM SANDBLAST OPERATOR [facility] Staphylococcus epidermidis NOT Detected 3 10:20 AM SANDBLAST OPERATOR [facility] Staphylococcus lugdunensis NOT Detected 3 10:20 AM SANDBLAST OPERATOR [facility] Streptococcus NOT Detected 3 10:[address] [facility] Streptococcus agalactiae (Group B) NOT Detected 3 10:[address] [facility] Streptococcus pneumoniae NOT Detected 3 10:[address] [facility] [facility] Streptococcus pyogenes (Group A) NOT Detected 3 10:20 AM SANDBLAST OPERATOR [facility] Acinetobacter calcoaceticus-vannesa david complex NOT Detected 3 10:20 AM SANDBLAST OPERATOR [facility] Enterobacteriaceae NOT Detected 05/26 3 10:20 AM SANDBLAST OPERATOR [facility] Enterobacter cloacae complex NOT Detected 3 10:20 AM SANDBLAST OPERATOR [facility] Escherichia coli NOT Detected 3 10:20 AM SANDBLAST OPERATOR [facility] Klebsiella oxytoca NOT Detected 05/26 3 10:[address] [facility] Klebsiella pneumoniae group NOT Detected 3 10:[address] [facility] Proteus NOT Detected 3 10:[address] [facility] Serratia marcescens NOT Detected 3 10:[address] [facility] Haemophilus influenzae NOT Detected 3 10:[address] [facility] Neisseria meningitidis NOT Detected 3 10:[address] [facility] Pseudomonas aeruginosa NOT Detected 3 10:[address] [facility] Yuliana albicans NOT Detected 3 10:[address] [facility] Yuliana glabrata NOT Detected 3 10:[address] [facility] Yuliana krusei NOT Detected 06/22/20 2 3 10:[address] [facility] Yuliana parapsilosis NOT Detected 3 10:20 AM SANDBLAST OPERATOR [facility] Yuliana tropicalis NOT Detected 05/26 3 10:20 AM SANDBLAST OPERATOR [facility] Bacteroides fragilis group NOT Detected 3 10:[address] [facility] Klebsiella aerogenes NOT Detected 3 10:[address] [facility] Salmonella NOT Detected 3 10:[address] [facility] Stenotrophomonas maltophilia NOT Detected 3 10:[address] [facility] Yuliana auris NOT Detected 3 10:20 AM SANDBLAST OPERATOR [facility] Cryptococcus neoformans/gattii NOT Detected 10:20 AM SANDBLAST OPERATOR [facility] Blood BLOOD SPECIMEN / Unknown Venipuncture / Unknown 06/21/2023 9:20 AM SANDBLAST OPERATOR 06/21/2023 9:35 AM SANDBLAST OPERATOR Bruce APONTE [facility]CROBIOLOGY [facility] [address] [place] [address], * LACTATE VENOUS (06/21/2023 9:20 AM SANDBLAST OPERATOR) LACTATE,VENOUS 1.5 0.5 - 2.0 mmol/L 06/21/2023 9:59 AM SANDBLAST OPERATOR LABORATORY Blood BLOOD SPECIMEN / Unknown Venipuncture / Unknown 06/21/2023 9:20 AM SANDBLAST OPERATOR 06/21/2023 9:29 AM SANDBLAST OPERATOR Bruce APONTE CHEMISTRY LABORATORY SENDOUT INTERNAL ZIP [phone] [place] [address] * (ABNORMAL) PROCALCITONIN (06/21/2023 9:20 AM SANDBLAST OPERATOR) PROCALCITONIN 15.30(H) ng/ml 06/21/2023 10:06 AM SANDBLAST OPERATOR LABORATORY Blood BLOOD SPECIMEN / Unknown Venipuncture / Unknown 06/21/2023 9:20 AM SANDBLAST OPERATOR 06/21/2023 9:29 AM SANDBLAST OPERATOR Narrative LABORATORY - 06/21/2023 10:06 AM SANDBLAST OPERATOR Procalcitonin for initial assessment of Lower Respiratory [...] concentrations < 2 ng/mL are obtained. Bruce APONTE SEND OUTS LABORATORY SENDOUT INTERNAL ZIP [phone] [place] [address] * SCAN-CARDIAC STRIP (06/21/2023 9:17 AM SANDBLAST OPERATOR) Scanner OTHER * XR CHEST 1 VIEW PORTABLE (06/21/2023 5:51 AM SANDBLAST OPERATOR) Anatomical Region Laterality Modality HEART, THORAX, CHEST Computed Ra diography 06/21/2023 5:51 AM SANDBLAST OPERATOR Impressions 06/21/2023 7:05 AM SANDBLAST OPERATOR Vascular congestion with interstitial edema. Left basilar atelectasis/scarring. No pleural effusion. Normal heart size. Narrative 06/21/2023 7:05 AM SANDBLAST OPERATOR For Patients: As a result of the Cures Act, medical imaging exams and procedure reports are released immediately into your electronic medical record. You may view this report before your referring provider. If you have questions, please contact your health care provider. EXAM: XR CHEST 1 VIEW PORTABLE LOCATION: [facility] MEDICAL IMAGING DATE: 06/21/2023 INDICATION: Shortness [...] EXAM: XR CHEST 1 VIEW PORTABLE LOCATION: [facility] MEDICAL IMAGING DATE: 06/21/2023 INDICATION: Shortness of breath COMPARISON: None. IMPRESSION: Vascular congestion with interstitial edema. Left basilaratelectasis/scarring. No pleural effusion. Normal heart size. Justin Almendarez MD GENERAL IMAGIN G * (ABNORMAL) PLATELET COUNT (06/21/2023 5:18 AM SANDBLAST OPERATOR) Pathologist [facility] PLATELET COUNT 102(L) 140 - 440 thou/cu mm 06/21/2023 6:12 AM SANDBLAST OPERATOR LABORATORY MPV 9.0 6.5 - 11.0 fL 06/21/2023 6:12 AM SANDBLAST OPERATOR LABORATORY Blood BLOOD SPECIMEN / Unknown Venipuncture / Unknown 06/21/2023 5:18 AM SANDBLAST OPERATOR 06/21/2023 5:41 AM SANDBLAST OPERATOR Justin Almendarez MD HEMATOLOGY LABORATORY SENDOUT INTERNAL ZIP [phone] [place] [address] * (ABNORMAL) WHITE BLOOD COUNT (06/21/2023 5:18 AM SANDBLAST OPERATOR) WHITE BLOOD COUNT 16.4(H) 4.5 - 11.0 thou/cu mm 06/21/2023 8:44 AM SANDBLAST OPERATOR LABORATORY NRBC 0.0 % 06/21/2023 8:44 AM SANDBLAST OPERATOR LABORATORY ABS NRBC 0.0 thou /cu mm 06/21/2023 8:44 AM SANDBLAST OPERATOR LABORATORY Blood BLOOD SPECIMEN / Unknown Venipuncture / Unknown 06/21/2023 5:18 AM SANDBLAST OPERATOR 06/21/2023 5:41 AM SANDBLAST OPERATOR Bruce APONTE HEMATOLOGY LABORATORY SENDOUT INTERNAL ZIP [phone] [place] [address] * (ABNORMAL) HEMOGLOBIN (06/21/2023 5:18 AM SANDBLAST OPERATOR) HEMOGLOBIN 12.5(L) 13.5 - 17.5 g/dL 06/21/2023 6:12 AM SANDBLAST OPERATOR LABORATORY MCV 93 80 - 100 fL 06/21/2023 6:12 AM SANDBLAST OPERATOR LABORATORY Blood BLOOD SPECIMEN / Unknown Venipuncture / Unknown 06/21/2023 5:18 AM SANDBLAST OPERATOR 06/21/2023 5:41 AM SANDBLAST OPERATOR Justin Almendarez MD HEMATOLOGY LABORATORY SENDOUT INTERNAL ZIP [phone] [place] [address] * SODIUM (06/21/2023 5:18 AM SANDBLAST OPERATOR) SODIUM 141 136 - 145 mmol/L 06/21/2023 8:53 AM SANDBLAST OPERATOR LABORATORY Blood BLOOD SPECIMEN / Unknown Venipuncture / Unknown 06/21/2023 5:18 AM SANDBLAST OPERATOR 06/21/2023 5:41 AM SANDBLAST OPERATOR Bruce APONTE CHEMISTRY LABORATORY SENDOUT INTERNAL ZIP [phone] [place] [address] * POTASSIUM (06/21/2023 5:18 AM SANDBLAST OPERATOR) POTASSIUM 3.9 3.5 - 5.1 mmol/L 06/21/2023 8:53 AM SANDBLAST OPERATOR LABORATORY Blood BLOOD SPECIMEN / Unknown Venipuncture / Unknown 06/21/2023 5:18 AM SANDBLAST OPERATOR 06/21/2023 5:41 AM SANDBLAST OPERATOR Bruce APONTE CHEMISTRY Performing Organization Address [facility] Phone Number [facility] SENDOUT INTERNAL [facility] [phone] [place] [phone] * CREATININE (06/21/2023 5:18 AM SANDBLAST OPERATOR) eGFR >90 >90 mL/min/1.7 3m2 06/21/2023 6:15 AM SANDBLAST OPERATOR LABORATORY Comment:As of 2021, eG FR is calculated by the CKD-EPI creatinine equation without race adjustment. ??eGFR can be influenced by muscle mass, exercise, and diet. ??The reported eGFR is an estimation only and is only applicable if the renal function is stable. CREATININE 0.93 0.70 - 1.20 mg/dL 06/21/2023 6:15 AM SANDBLAST OPERATOR LABORATORY Blood BLOOD SPECIMEN / Unknown Venipuncture / Unknown 06/21/2023 5:18 AM SANDBLAST OPERATOR 06/21/2023 5:41 AM SANDBLAST OPERATOR Justin Almendarez MD CHEMISTRY Performing Organization Address [facility] Phone Number LABORATORY SENDOUT INTERNAL [facility] [phone] [place] [phone] * (ABNORMAL) PRO-BNP (06/21/2023 5:18 AM SANDBLAST OPERATOR) PRO-BNP 395(H) <125 pg/mL 06/21/2023 6:17 AM SANDBLAST OPERATOR LABORATORY Blood BLOOD SPECIMEN / Unknown Venipuncture / Unknown 06/21/2023 5:18 AM SANDBLAST OPERATOR 06/21/2023 5:41 AM SANDBLAST OPERATOR Narrative LABORATORY - 06/21/2023 6:17 AM SANDBLAST OPERATOR The following cut-points have been suggested for [...] SEND OUTS Performing Organization Address [facility] de Phone Number LABORATORY SENDOUT INTERNAL ZIP [phone] [place] [address] * MAGNESIUM (06/21/2023 5:18 AM SANDBLAST OPERATOR) MAGNESIUM 1.6 1.6 - 2.4 mg/dL 06/21/2023 10:12 AM SANDBLAST OPERATOR LABORATORY Blood BLOOD SPECIMEN / Unknown Venipuncture / Unknown 06/21/2023 5:18 AM SANDBLAST OPERATOR 06/21/2023 5:41 AM SANDBLAST OPERATOR Bruce APONTE CHEMISTRY Performing Organization Address [facility] Co de Phone Number LABORATORY SENDOUT INTERNAL ZIP [phone] [place] [address] * (ABNORMAL) PROTIME-INR (06/21/2023 2:51 AM SANDBLAST OPERATOR) INR 1.4(H) <1.3 06/21/2023 3:24 AM SANDBLAST OPERATOR LABORATORY PROTIME 15.3(H) 10.3 - 12.3 sec 06/21/2023 3:24 AM [facility] Blood BLOOD SPECIMEN / Unknown Venipuncture / Unknown 06/21/2023 2:51 AM SANDBLAST OPERATOR 06/21/2023 3:01 AM SANDBLAST OPERATOR Narrative LABORATORY - 06/21/2023 3:24 AM SANDBLAST OPERATOR ?Therapeutic Range 2.0-3.0 for most anticoagulated patients [...] is on [facility]. Justin Almendarez MD HEMATOLOGY LABORATORY SENDOUT INTERNAL ZIP [phone] [place] [address] * SCAN-CARDIAC STRIP (06/20/2023 11:59 PM SANDBLAST OPERATOR) Scanner OTHER from Last 3 Months Advance Directives Latest Code Status on File Code Status Date Activated Date Inactivated Comments DNR 06/21/2023 1:43 AM 06/27/2023 6:20 PM Question Answer Comments Code Status Discussion: Reviewed Preferences Code Status History Code Status Date Activated Date Inactivated Comments Full Code 06/21/2023 12:05 AM 06/21/2023 1:43 AM Question Answer Comments Code Status Discussion: Reviewed Preferences Care Teams [employer] Relationship Specialty Start Date End Date Nat Mccoy PA [address] [place] [address] PCP - General Physician Industrial Equipment Mechanic 06/23/23 [facility] [address] [place] [id number] 06/26/23
== END 2023-07-05 11:54 | disposition home or self-care (01) ==
LOC: AMB 07-09 03:18
PROVIDERS: Visit Provider Student in an Organized Health Care Education/Training Program
DX: R41.82 Altered mental status, unspecified (principal)
CPT/HCPCS: A0998

== ENCOUNTER 2023-07-06 11:24 | Outpatient (CLI) | payer MEDICAID, SELFPAY ==
--- OUTSIDE RECORDS SUMMARY | 2023-07-09 04:16 | XMS_ITS | Clinical Summary ---
Author Name Unknown Organization [facility] Address [place], [place] [address] Care Team Providers Care Photovoltaic Testing Technician Name Role Phone Nat Mccoy Primary Care Provider [phone] [facility] Care, Ag Unavailable [phone] Allergies No known active allergies Medications Medication [...] Type Department Care Team Description 07/06/2023 Telephone [facility] [address] [place] [address] Cecy Nunes RN 07/05/2023 11:00 AM CLOTHES PRESSER Home Care Visit [facility] [address] [place] [phone] Puja Hirsch, RN SN - OASIS DISCHARGE 07/05/2023 Home Care Visit [facility] [address] [place] [phone] Depuydt, Vida M, RN CARE COORDINATION 07/04/2023 9:00 AM CLOTHES PRESSER Home Care Visit [facility] [address] [place] [address] Drew Pena, RN SN - MISSED VISIT 07/03/2023 Home Care Visit [facility] [address] [place] [address] Lena Ron, RESTAURANT COOK CARE COORDINATION 07/02/2023 Home Care Visit [facility] [address] [place] [address], [place] [phone] Carl Haddad, PT CARE COORDINATION 06/28/2023 10:00 AM CLOTHES PRESSER Home Care Visit [facility] [address] [place] [address], [place] [phone] Drew Pena, RN SN IV - START OF CARE 06/28/2023 Plan of Care Documentation [address] [place] [phone] 06/28/2023 [facility] [address] [place] [address] Mary Mayer, RN Primary RN Care Management; Hospital F/U ([facility]) 06/26/2023 Travel 06/21/2023 3:40 PM CLOTHES PRESSER Anesthesia Event [address] [address] Dave Peterson CRNA Dahl, Ashley Rose Dragavon, MD 06/21/2023 3:10 PM CLOTHES PRESSER - 06/21/2023 4:10 PM CLOTHES PRESSER Surgery [address] [address] Chao Villagomez MD CYSTOSCOPY. RIGHT PLACEMENT OF URETERAL STENT, RIGHT RETROGRADES PYELOGRAM 06/21/2023 Travel 06/20/2023 11:37 PM CLOTHES PRESSER - 06/27/2023 3:50 PM CLOTHES PRESSER Hospital Encounter [address] [address] s, U Hospitalist Tierra Almendarez, MD Lorna [...] Comments Blood Pressure 130/62 07/05/2023 11:15 AM CLOTHES PRESSER Pulse 94 07/05/2023 11:15 AM CLOTHES PRESSER Temperature 36.9 ??C (98.5 ??F) 07/05/2023 1 1:15 AM CLOTHES PRESSER Respiratory Rate 22 07/05/2023 11:1 5 AM CLOTHES PRESSER Oxygen Saturation 94% 07/05/2023 11: 15 AM CLOTHES PRESSER RA Inhaled Oxygen Concentration - - Weight 106.3 kg (234 lb 6.4 oz) 06/24/2023 3:46 AM CLOTHES PRESSER Height 172.7 cm (5' 8) 06/20/2023 11:4 5 PM CLOTHES PRESSER Body Mass Index 35.64 06/20/2023 11:45 PM CLOTHES PRESSER Plan of Treatment Upcoming Encounters Date Type Department Care Team (Late st Contact Info) Description 07/26/2023 2:10 PM CLOTHES PRESSER Phone Office Visit [facility] [address] [place] [address] Cuba Escudero MD [address] [place] [phone] Health Maintenance Due Date Last Done Comments [...] 08/12, 08/12/2012 Medical Devices Implanted Type Area Boring Inspector Device Identifier Shelf Expiration Date Model / Serial / Lot Stent Uret [id number] Percuflex Hydroplus - [id number] Implanted:Qty: 1 on 06/21/2023 by Chao Villagomez MD at [facility] Right: [place] [facility] 02/09/2026 [id number] / / [id number] Procedures Procedure Name Priority Date/Time Associated Diagnosis Comments SCAN-CARDIAC STRIP 06/27/2023 7: 43 AM CLOTHES PRESSER CBC WITH AUTO DIFFERENTIAL Early AM 06/27/2023 6:18 AM CLOTHES PRESSER CBC WITH AUTO DIFFERENTIAL Early AM 06/27/2023 6:18 AM CLOTHES PRESSER SCAN-CARDIAC STRIP 06/27/2023 3: 28 AM CLOTHES PRESSER XR CHEST 1 VIEW PICC OR CVAD PLACEMENT PORTABLE STAT 06/26/2023 6:44 PM CLOTHES PRESSER SCAN-CARDIAC STRIP 06/26/2023 3: 09 PM CLOTHES PRESSER C-REACTIVE PROTEIN Timed 06/26/2023 1: 30 PM CLOTHES PRESSER BASIC METABOLIC PANEL SID 06/26/2023 1:30 PM CLOTHES PRESSER SCAN-CARDIAC STRIP 06/26/2023 10 :56 AM CLOTHES PRESSER SCAN-CARDIAC STRIP 06/25/2023 11 :00 PM CLOTHES PRESSER SCAN-CARDIAC STRIP 06/25/2023 5: 43 PM CLOTHES PRESSER SCAN-CARDIAC STRIP 06/25/2023 7: 05 AM CLOTHES PRESSER SCAN-CARDIAC STRIP 06/25/2023 12 :06 AM CLOTHES PRESSER SCAN-CARDIAC STRIP 06/24/2023 8: 00 PM CLOTHES PRESSER SCAN-CARDIAC STRIP 06/24/2023 4: 42 PM CLOTHES PRESSER SCAN-CARDIAC STRIP 06/23/2023 3: 23 PM CLOTHES PRESSER SCAN-CARDIAC STRIP 06/23/2023 8: 00 AM CLOTHES PRESSER SCAN-CARDIAC STRIP 06/23/2023 12 :29 AM CLOTHES PRESSER GLUCOSE METER Timed 06/22/2023 9:10 PM CLOTHES PRESSER SCAN-CARDIAC STRIP 06/22/2023 3: 05 PM CLOTHES PRESSER C-REACTIVE PROTEIN Timed 06/22/2023 1: 30 PM CLOTHES PRESSER BLOOD CULTURE Today 06/22/2023 1:30 PM CLOTHES PRESSER BLOOD CULTURE Today 06/22/2023 1:22 PM CLOTHES PRESSER GLUCOSE METER Timed 06/22/2023 11:57 AM CLOTHES PRESSER SCAN CORRESP-IMAGING 06/22/2023 9:43 AM CLOTHES PRESSER SCAN-CARDIAC STRIP 06/22/2023 8: 00 AM CLOTHES PRESSER GLUCOSE METER Timed 06/22/2023 6:12 AM CLOTHES PRESSER PLATELET ESTIMATE Timed 06/22/2023 5:1 8 AM CLOTHES PRESSER RED CELL MORPHOLOGY Timed 06/22/2023 5 :18 AM CLOTHES PRESSER CBC W PLT NO DIFF Early AM 06/22/2023 5:1 8 AM CLOTHES PRESSER GLUCOSE METER Timed 06/22/2023 12:14 AM CLOTHES PRESSER SCAN-CARDIAC STRIP 06/21/2023 11 :35 PM CLOTHES PRESSER SCAN-CARDIAC STRIP 06/21/2023 11 :30 PM CLOTHES PRESSER GLUCOSE METER Timed 06/21/2023 6:50 PM CLOTHES PRESSER URINE CULTURE Today 06/21/2023 5:44 PM CLOTHES PRESSER XR RETROGRADE PYELOGRAM W/WO KUB Routine 06/21/2023 4:29 PM CLOTHES PRESSER CYSTOSCOPY PLACEMENT URETERAL STENT RETROGRADES 06/21/2023 3:30 PM CLOTHES PRESSER Right ureteral stone Case Notes NPO SCAN CORRESP-IMAGING 06/21/2023 12:30 PM CLOTHES PRESSER ECHO TTE COMPLETE W CONTRAST Routine 06/21/2023 12:15 PM CLOTHES PRESSER GLUCOSE METER Timed 06/21/2023 11:55 AM CLOTHES PRESSER SCAN-CARDIAC STRIP 06/21/2023 9: 45 AM CLOTHES PRESSER BLOOD CULTURE Today 06/21/2023 9:28 AM CLOTHES PRESSER BLOOD CULTURE MULTIPLEX PCR Timed 06/21/2023 9:20 AM CLOTHES PRESSER BLOOD CULTURE Today 06/21/2023 9:20 AM CLOTHES PRESSER LACTATE VENOUS STAT 06/21/2023 9:20 AM CLOTHES PRESSER PROCALCITONIN STAT 06/21/2023 9:20 AM CLOTHES PRESSER SCAN-CARDIAC STRIP 06/21/2023 9: 17 AM CLOTHES PRESSER GLUCOSE METER Timed 06/21/2023 5:57 AM CLOTHES PRESSER XR CHEST 1 VIEW PORTABLE Routine 06/21/2023 5:51 AM CLOTHES PRESSER MAGNESIUM SID 06/21/2023 5:18 AM CLOTHES PRESSER POTASSIUM SID 06/21/2023 5:18 AM CLOTHES PRESSER SODIUM SID 06/21/2023 5:18 AM CLOTHES PRESSER WHITE BLOOD COUNT SID 06/21/2023 5:1 8 AM CLOTHES PRESSER PRO-BNP Today 06/21/2023 5:18 AM CLOTHES PRESSER CREATININE Today 06/21/2023 5:18 AM CLOTHES PRESSER PLATELET COUNT Today 06/21/2023 5:18 AM CLOTHES PRESSER HEMOGLOBIN Today 06/21/2023 5:18 AM CLOTHES PRESSER PROTIME-INR Today 06/21/2023 2:51 AM CLOTHES PRESSER GLUCOSE METER Timed 06/21/2023 12:44 AM CLOTHES PRESSER SCAN-CARDIAC STRIP 06/20/2023 11 :59 PM CLOTHES PRESSER from Last 3 Months Results * SCAN-CARDIAC STRIP (06/27/2023 7:43 AM CLOTHES PRESSER) Scanner OTHER * (ABNORMAL) CBC WITH AUTO DIFFERENTIAL (06/27/2023 6:18 AM CLOTHES PRESSER) WHITE BLOOD COUNT 9.0 4.5 - 11.0 thou/cu mm 06/27/2023 6:33 AM [facility] RED BLOOD COUNT 4.17(L) 4.30 - 5.90 mil/cu mm 06/27/2023 6:33 AM [facility] HEMOGLOBIN 12.6(L) 13.5 - 17.5 g/dL 06/27/2023 6:33 AM [facility] HEMATOCRIT 38.2 37.0 - 53.0 % 06/27/2023 6:33 AM [facility] MCV 92 80 - 100 fL 06/27/2023 6:33 AM [facility] MCH 30.2 26.0 - 34.0 pg 06/27/2023 6:33 AM [facility] MCHC 33.0 32.0 - 36.0 g/dL 06/27/2023 6:33 AM [facility] RDW 16.0(H) 11.5 - 15.5 % 06/27/2023 6:33 AM [facility] PLATELET COUNT 131(L) 140 - 440 thou/cu mm 06/27/2023 6:33 AM [facility] MPV 9.2 6.5 - 11.0 fL 06/27/2023 6:33 AM [facility] NRBC 0.0 % 06/27/2023 6:33 AM [facility] ABS NRBC 0.0 thou /cu mm 06/27/2023 6:33 AM [facility] % NEUT 59.7 % 06/27/2023 6:33 AM [facility] % LYMPH 26.4 % 06/27/2023 6:33 AM [facility] % MONO 8.7 % 06/27/2023 6:33 AM [facility] % EOS 3.4 % 06/27/2023 6:33 AM [facility] % BASO 0.9 % 06/27/2023 6:33 AM [facility] % IMMATURE GRAN (METAS,MYELOS,RI OS) 0.9 % 06/27/2023 6:33 AM [facility] ABSOLUTE NEUTROPHILS 5.4 1.7 - 7.0 thou/cu mm 06/27/2023 6:33 AM [facility] ABSOLUTE LYMPHOCYTES 2.4 0.9 - 2.9 thou/cu mm 06/27/2023 6:33 AM [facility] ABSOLUTE MONOCYTES 0.8 <0.9 thou/cu mm 06/27/2023 6:33 AM [facility] ABSOLUTE EOSINOPHILS 0.3 <0.5 thou/cu mm 06/27/2023 6:33 AM [facility] ABSOLUTE BASOPHILS 0.1 <0.3 thou/cu mm 06/27/2023 6:33 AM [facility] ABSOLUTE IMMATURE GRANULOCYTES(MET ,MYELOS,PROS) 0.1 <0.3 thou/cu mm 06/27/2023 6:33 AM [facility] Blood BLOOD SPECIMEN / Unknown Non-Lab Venipuncture / Unknown 06/27/2023 6:18 AM CLOTHES PRESSER 06/27/2023 6:27 AM [facility] Cuba Escudero MD HEMATOLOGY [facility] SENDOUT [place]NAL ZIP [phone] [place] [address] * SCAN-CARDIAC STRIP (06/27/2023 3:28 AM CLOTHES PRESSER) Scanner OTHER * XR Chest PICC Line Placement Portable (06/26/2023 6:44 PM CLOTHES PRESSER) Anatomical Region Laterality Modality HEART, THORAX, CHEST Computed Ra diography 06/26/2023 6:44 PM CLOTHES PRESSER Impressions 06/26/2023 10:06 PM CLOTHES PRESSER Left PICC with tip in the SVC in good location. Mild bibasilar infiltrates. Degenerative changes in the right shoulder. Narrative 06/26/2023 10:06 PM CLOTHES PRESSER For Patients: As a result of the Cures Act, medical imaging exams and procedure reports are released immediately into your electronic medical record. You may view this report before your referring provider. If you have questions, please contact your health care provider. EXAM: XR CHEST 1 VIEW PICC OR CVAD PLACEMENT PORTABLE LOCATION: [facility] DATE: 06/26/2023 INDICATION: Line [...] VIEW PICC OR CVAD PLACEMENT PORTABLE LOCATION: [facility] DATE: 06/26/2023 INDICATION: Line placement. COMPARISON: None. IMPRESSION: Left PICC with tip in the SVC in good location. Mild bibasilarinfiltrates. Degenerative changes in the right shoulder. Chip Samuel MD GENERAL IMAGING * SCAN-CARDIAC STRIP (06/26/2023 3:09 PM CLOTHES PRESSER) Scanner OTHER * (ABNORMAL) C-REACTIVE PROTEIN (06/26/2023 1:30 PM CLOTHES PRESSER) Only the most recent of2 resultswithin the time period is included. C-REACTIVE PROTEIN 2.1(H) <0.5 mg/dL 06/26/2023 1:58 PM [facility] Blood BLOOD SPECIMEN / Unknown Butterfly / Unknown 06/26/2023 1:30 PM CLOTHES PRESSER 06/26/2023 1:35 PM [facility] Cuba Escudero MD CHEMISTRY [facility] SENDOUT INTERNAL ZIP [phone] [place] [address] * (ABNORMAL) BASIC METABOLIC PANEL (06/26/2023 1:30 PM CLOTHES PRESSER) Pathologist [facility] SODIUM 137 136 - 145 mmol/L 06/26/2023 2:02 PM [facility] POTASSIUM 4.0 3.5 - 5.1 mmol/L 06/26/2023 2:02 PM [facility] CHLORIDE 106 98 - 107 mmol/L 06/26/2023 2:02 PM [facility] CO2,TOTAL 28 22 - 29 mmol/L 06/26/2023 2:02 PM [facility] ANION GAP 3(L) 5 - 18 06/26/2023 2:02 PM [facility] GLUCOSE 96 70 - 99 mg/dL 06/26/2023 2:02 PM [facility] CALCIUM 8.4(L) 8.8 - 10.2 mg/dL 06/26/2023 2:02 PM [facility] BUN 11 8 - 23 mg/dL 06/26/2023 2:02 PM [facility] CREATININE 0.46(L) 0.70 - 1.20 mg/dL 06/26/2023 2:02 PM [facility] BUN/CREAT RATIO 24(H) 10 - 20 2:02 PM [facility] eGFR >90 >90 mL/min/1.7 3m2 06/26/2023 2:02 PM [facility] Comment:As of 2021, eG FR is calculated by the CKD-EPI creatinine equation without race adjustment. ??eGFR can be influenced by muscle mass, exercise, and diet. ??The reported eGFR is an estimation only and is only applicable if the renal function is stable. Blood BLOOD SPECIMEN / Unknown Butterfly / Unknown 06/26/2023 1:30 PM CLOTHES PRESSER 06/26/2023 1:35 PM CLOTHES PRESSER Cuba Escudero MD CHEMISTRY [facility] SENDOUT INTERNAL ZIP [phone] [place] [address] * SCAN-CARDIAC STRIP (06/26/2023 10:56 AM CLOTHES PRESSER) Scanner OTHER * SCAN-CARDIAC STRIP (06/25/2023 11:00 PM CLOTHES PRESSER) Scanner OTHER * SCAN-CARDIAC STRIP (06/25/2023 5:43 PM CLOTHES PRESSER) Scanner OTHER * SCAN-CARDIAC STRIP (06/25/2023 7:05 AM CLOTHES PRESSER) Scanner OTHER * SCAN-CARDIAC STRIP (06/25/2023 12:06 AM CLOTHES PRESSER) Scanner OTHER * SCAN-CARDIAC STRIP (06/24/2023 8:00 PM CLOTHES PRESSER) Scanner OTHER * SCAN-CARDIAC STRIP (06/24/2023 4:42 PM CLOTHES PRESSER) Scanner OTHER * SCAN-CARDIAC STRIP (06/23/2023 3:23 PM CLOTHES PRESSER) Scanner OTHER * SCAN-CARDIAC STRIP (06/23/2023 8:00 AM CLOTHES PRESSER) Scanner OTHER * SCAN-CARDIAC STRIP (06/23/2023 12:29 AM CLOTHES PRESSER) Scanner OTHER * (ABNORMAL) GLUCOSE METER (06/22/2023 9:10 PM CLOTHES PRESSER) Only the most recent of8 resultswithin the time period is included. Pathologist [facility] GLUCOSE METER 131(H) 65 - 100 mg/dL 06/22/2023 9:11 PM CLOTHES PRESSER [facility] Blood BLOOD SPECIMEN / Unknown 06/22/2023 9:10 PM CLOTHES PRESSER 06/22/2023 9:11 PM CLOTHES PRESSER Bruce APONTE CHEMISTRY [facility] SENDOUT INTERNAL ZIP [phone] [place] [address] * SCAN-CARDIAC STRIP (06/22/2023 3:05 PM CLOTHES PRESSER) Scanner OTHER * BLOOD CULTURE (06/22/2023 1:30 PM CLOTHES PRESSER) Only the most recent of4 resultswithin the time period is included. [facility] CULTURE No Growth. 06/26/2023 6:40 PM CLOTHES PRESSER [facility] Blood BLOOD SPECIMEN / Unknown Venipuncture / Unknown 06/22/2023 1:30 PM CLOTHES PRESSER 06/22/2023 1:54 PM CLOTHES PRESSER Bruce APONTE MICROBIOLOGY Performing Organization Address City/[facility]/ZIP Co de Phone Number [facility] [address] [place] [address], * SCAN CORRESP-IMAGING (06/22/2023 9:43 AM CLOTHES PRESSER) Only the most recent of2 resultswithin the time period is included. Anatomical Region Laterality Modality Other Narrative 06/22/2023 9:43 AM CLOTHES PRESSER Ordered by an unspecified provider. Other Clinical Staff OTHER * SCAN-CARDIAC STRIP (06/22/2023 8:00 AM CLOTHES PRESSER) Scanner OTHER * (ABNORMAL) RED CELL MORPHOLOGY (06/22/2023 5:18 AM CLOTHES PRESSER) [facility] POLYCHROMASIA Slight 06/22/2023 6:40 AM [facility] RBC COMMENT Present(A) RBC morphology appears normal, RBC morphology within normal limits for newborns. 06/22/2023 6:40 AM CLOTHES PRESSER [facility] Blood BLOOD SPECIMEN / Unknown Venipuncture / Unknown 06/22/2023 5:18 AM CLOTHES PRESSER 06/22/2023 5:29 AM CLOTHES PRESSER Kdgina Velizchris [facility]EM[facility]OLOG[facility] Performing Organization Address City/[facility]/ZIP Co de Phone Number [facility] SENDOUT INTERNAL ZIP [phone] [place] [address] * (ABNORMAL) PLATELET ESTIMATE (06/22/2023 5:18 AM CLOTHES PRESSER) PLATELET ESTIMATE Decreased (A) Adequate, No estimate 06/22/2023 6:40 AM [facility] Blood BLOOD SPECIMEN / Unknown Venipuncture / Unknown 06/22/2023 5:18 AM CLOTHES PRESSER 06/22/2023 5:29 AM CLOTHES PRESSER Bruce Rothman [facility] Performing Organization Address City/[facility]/ZIP Co de Phone Number [facility] SENDOUT INTERNAL ZIP [phone] [place] [phone] * (ABNORMAL) CBC W PLT NO DIFF (06/22/2023 5:18 AM CLOTHES PRESSER) WHITE BLOOD COUNT 8.3 4.5 - 11.0 thou/cu mm 06/22/2023 6:40 AM [facility] RED BLOOD COUNT 3.82(L) 4.30 - 5.90 mil/cu mm 06/22/2023 6:40 AM [facility] HEMOGLOBIN 11.8(L) 13.5 - 17.5 g/dL 06/22/2023 6:40 AM [facility] HEMATOCRIT 35.9(L) 37.0 - 53.0 % 06/22/2023 6:40 AM [facility] MCV 94 80 - 100 fL 06/22/2023 6:40 AM [facility] MCH 30.9 26.0 - 34.0 pg 06/22/2023 6:40 AM [facility] MCHC 32.9 32.0 - 36.0 g/dL 06/22/2023 6:40 AM CLOTHES PRESSER [facility] RDW 16.3(H) 11.5 - 15.5 % 06/22/2023 6:40 AM CLOTHES PRESSER [facility] PLATELET COUNT 91(L) 140 - 440 thou/cu mm 06/22/2023 6:40 AM CLOTHES PRESSER [facility] MPV 9.6 6.5 - 11.0 fL 06/22/2023 6:40 AM CLOTHES PRESSER [facility] NRBC 0.0 % 06/22/2023 6:40 AM CLOTHES PRESSER [facility] ABS NRBC 0.0 thou /cu mm 06/22/2023 6:40 AM [facility] Blood BLOOD SPECIMEN / Unknown Venipuncture / Unknown 06/22/2023 5:18 AM CLOTHES PRESSER 06/22/2023 5:29 AM CLOTHES PRESSER Bruce APONTE HEMATOLOGY [facility] SENDOUT INTERNAL [facility] [phone] [place] [address] * SCAN-CARDIAC STRIP (06/21/2023 11:35 PM CLOTHES PRESSER) Scanner OTHER * SCAN-CARDIAC STRIP (06/21/2023 11:30 PM CLOTHES PRESSER) Scanner OTHER * URINE CULTURE (06/21/2023 5:44 PM CLOTHES PRESSER) CULTURE No growth (<1,000 CFU/mL) 06/22/2023 3:38 PM CLOTHES PRESSER [facility] Urine URINE SPECIMEN / Unknown Non-Blood / Unknown 06/21/2023 5:44 PM CLOTHES PRESSER 06/21/2023 5:52 PM CLOTHES PRESSER Bruce APONTE MICROBIOLOGY [facility] [address] [place] [address], [place] * XR RETROGRADE PYELOGRAM W/WO KUB (06/21/2023 4:29 PM CLOTHES PRESSER) Anatomical Region Laterality Modality KIDNEYS, Abdomen Computed Radiog barry 06/21/2023 4:29 PM CLOTHES PRESSER Impressions 06/21/2023 5:50 PM CLOTHES PRESSER Fluoroscopic services were provided to the urology [...] for additional details. Narrative 06/21/2023 5:50 PM CLOTHES PRESSER For Patients: As a result of the Cures Act, medical imaging exams and procedure reports are released immediately into your electronic medical record. You may view this report before your referring provider. If you have questions, please contact your health care provider. EXAM: XR RETROGRADE PYELOGRAM W/WO KUB LOCATION: [facility] DATE: 06/21/2023 INDICATION: Eval [...] EXAM: XR RETROGRADE PYELOGRAM W/WO KUB LOCATION: [facility] DATE: 06/21/2023 INDICATION: Eval suspected/known [...] TTE COMPLETE W CONTRAST (06/21/2023 12:15 PM CLOTHES PRESSER) EJECTION FRACTION 60-65% PROSOLV Anatomical Region Laterality Modality Ultrasound 06/21/2023 10:4 5 AM CLOTHES PRESSER Narrative 06/21/2023 3:32 [place] [address] Main: [email or web address] ? Transthoracic Echo Report MICHELLE KLEIN Hannyluli ID: [id number] Age: 62 : 1960 Ordering Provider: JUSTIN ALMENDAREZ Exam Date: 06/21/2023 10:45 Gender: M Filter Tank Tender: TUTU Height: 68 in BSA: 2.17 m?? BP: 101 / 67 Weight: 231 lbs BMI: 35.1 kg/m?? HR: 92 Location: Inpatient (Portable) Rhythm: Sinus Tachycardia Procedure Components: 2D imaging with contrast, Color Doppler, Spectral Doppler Indications: Dyspnea Technical Quality: Fair, Technically difficult study Contrast: Definity Constrast Dose (ml): 0.15 [facility]#: [id number] Final Conclusion 1. Normal left ventricular chamber [...] Aortic Root ZScore: 1.09 Fawad Alba MD [facility] Accredited Site (Electronically Signed) Final Date: 21 June 2023 15:31 ICD-10 Codes: 786.09 Procedure Note Fawad Alba MD - 06/21/2023 [place] [address] Main: [email or web address] Transthoracic Echo Report MICHELLE KLEIN ID: [id number] Age: 62 : 1960 Ordering Provider:JUSTIN ALMENDAREZ Exam Date: 06/21/2023 10:45 Gender: M Filter Tank Tender: TUTU Height: 68 in BSA: 2.17 m?? BP: 101 / 67 Weight: 231 lbs BMI: 35.1 kg/m?? HR: 92 Location: Inpatient (Portable) Rhythm: Sinus Tachycardia Procedure Components: 2D imaging with contrast, Color Doppler, SpectralDoppler Indications: Dyspnea Technical Quality: Fair, Technically difficult study Contrast: Definity Constrast Dose (ml): 0.15 [facility]#: [id number] Final Conclusion 1. Normal left ventricular chamber [...] Aortic Root ZScore: 1.09 Fawad Alba MD [facility] Accredited Site (Electronically Signed) Final Date: 21 June 2023 15:31 ICD-10 Codes: 786.09 Justin Almendarez MD ECHO ORD * SCAN-CARDIAC STRIP (06/21/2023 9:45 AM CLOTHES PRESSER) Scanner OTHER * (ABNORMAL) BLOOD CULTURE MULTIPLEX PCR (06/21/2023 9:20 AM CLOTHES PRESSER) Organism(s) Detected Staphylococcus aureus(AA) No organism targets detected., Invalid 3 10:20 AM CLOTHES PRESSER [facility] Resistance Gene(s) None detected None detected 3 10:20 AM CLOTHES PRESSER [facility] CTX-M (ESBL-resistance gene) N/A 3 10:20 AM CLOTHES PRESSER [facility] IMP (carbapenem-resistan ce gene) N/A NOT Detected, N/A 3 10:20 AM CLOTHES PRESSER [facility] KPC (carbapenem-resistan ce gene) N/A NOT Detected, N/A 3 10:20 AM [facility] mcr-1 (colistin-resistance gene) N/A 3 10:20 AM [facility] mecA/C (methicillin-resista nce gene) N/A 3 10:20 AM [facility] mecA/C and MREJ (methicillin-resista nce gene) NOT Detected 3 10:20 AM [facility] NDM (carbapenem-resistan ce gene) N/A NOT Detected, N/A 3 10:20 AM [facility] OXA-48 like (carbapenem-resistan ce gene) N/A NOT Detected, N/A 3 10:20 AM [facility] van A/B (vancomycin-resistan ce genes) N/A 3 10:20 AM [facility] VIM (carbapenem-resistan ce gene) N/A NOT Detected, N/A 3 10:20 AM [facility] Enterococcus faecalis NOT Detected 3 10:20 AM [facility] Enterococcus faecium NOT Detected 3 10:20 AM [facility] Listeria monocytogenes NOT Detected 3 10:20 AM [facility] Staphylococcus Detected 3 10:20 AM [facility] Staphlococcus aureus Detected 05/26 3 10:20 AM [facility] Staphylococcus epidermidis NOT Detected 3 10:20 AM [facility] Staphylococcus lugdunensis NOT Detected 3 10:20 AM [facility] Streptococcus NOT Detected 3 10:20 AM [facility] Streptococcus agalactiae (Group B) NOT Detected 3 10:20 AM [facility] Streptococcus pneumoniae NOT Detected 3 10:20 AM [facility] Streptococcus pyogenes (Group A) NOT Detected 3 10:20 AM [facility] Acinetobacter calcoaceticus-vannesa david complex NOT Detected 3 10:20 AM [facility] Enterobacteriaceae NOT Detected 05/26 3 10:20 AM [facility] [facility] Enterobacter cloacae complex NOT Detected 3 10:20 AM CLOTHES PRESSER [facility] Escherichia coli NOT Detected 3 10:20 AM CLOTHES PRESSER [facility] Klebsiella oxytoca NOT Detected 05/26 3 10:20 AM CLOTHES PRESSER [facility] Klebsiella pneumoniae group NOT Detected 3 10:20 AM CLOTHES PRESSER [facility] Proteus NOT Detected 3 10:20 AM CLOTHES PRESSER [facility] Serratia marcescens NOT Detected 3 10:20 AM CLOTHES PRESSER [facility] Haemophilus influenzae NOT Detected 3 10:20 AM CLOTHES PRESSER [facility] Neisseria meningitidis NOT Detected 3 10:20 AM CLOTHES PRESSER [facility] Pseudomonas aeruginosa NOT Detected 3 10:20 AM CLOTHES PRESSER [facility] Yuliana albicans NOT Detected 3 10:20 AM CLOTHES PRESSER [facility] Yuliana glabrata NOT Detected 3 10:20 AM CLOTHES PRESSER [facility] Yuliana krusei NOT Detected 06/22/20 2 3 10:20 AM CLOTHES PRESSER [facility] Yuliana parapsilosis NOT Detected 3 10:20 AM CLOTHES PRESSER [facility] Yuliana tropicalis NOT Detected 05/26 3 10:20 AM CLOTHES PRESSER [facility] Bacteroides fragilis group NOT Detected 3 10:20 AM CLOTHES PRESSER [facility] Klebsiella aerogenes NOT Detected 3 10:20 AM CLOTHES PRESSER [facility] Salmonella NOT Detected 3 10:20 AM CLOTHES PRESSER [facility] Stenotrophomonas maltophilia NOT Detected 3 10:20 AM CLOTHES PRESSER [facility] Yuliana auris NOT Detected 3 10:20 AM CLOTHES PRESSER [facility] Cryptococcus neoformans/gattii NOT Detected 10:20 AM CLOTHES PRESSER [facility] Blood BLOOD SPECIMEN / Unknown Venipuncture / Unknown 06/21/2023 9:20 AM CLOTHES PRESSER 06/21/2023 9:35 AM CLOTHES PRESSER Bruce APONTE MICROBIOLOGY [facility] [address] [place] [address], * LACTATE VENOUS (06/21/2023 9:20 AM CLOTHES PRESSER) LACTATE,VENOUS 1.5 0.5 - 2.0 mmol/L 06/21/2023 9:59 AM CLOTHES PRESSER [facility] Blood BLOOD SPECIMEN / Unknown Venipuncture / Unknown 06/21/2023 9:20 AM CLOTHES PRESSER 06/21/2023 9:29 AM CLOTHES PRESSER Bruce APONTE CHEMISTRY [facility] SENDOUT INTERNAL ZIP [phone] [place] [address] * (ABNORMAL) PROCALCITONIN (06/21/2023 9:20 AM CLOTHES PRESSER) PROCALCITONIN 15.30(H) ng/ml 06/21/2023 10:06 AM CLOTHES PRESSER [facility] Blood BLOOD SPECIMEN / Unknown Venipuncture / Unknown 06/21/2023 9:20 AM CLOTHES PRESSER 06/21/2023 9:29 AM CLOTHES PRESSER Narrative [facility] - 06/21/2023 10:06 AM CLOTHES PRESSER Procalcitonin for initial assessment of Lower Respiratory [...] ng/mL are obtained. Bruce APONTE SEND OUTS [facility] SENDOUT INTERNAL ZIP [phone] [place] [address] * SCAN-CARDIAC STRIP (06/21/2023 9:17 AM CLOTHES PRESSER) Scanner OTHER * XR CHEST 1 VIEW PORTABLE (06/21/2023 5:51 AM CLOTHES PRESSER) Anatomical Region Laterality Modality HEART, THORAX, CHEST Computed Ra diography 06/21/2023 5:51 AM CLOTHES PRESSER Impressions 06/21/2023 7:05 AM CLOTHES PRESSER Vascular congestion with interstitial edema. Left basilar atelectasis/scarring. No pleural effusion. Normal heart size. Narrative 06/21/2023 7:05 AM CLOTHES PRESSER For Patients: As a result of the Cures Act, medical imaging exams and procedure reports are released immediately into your electronic medical record. You may view this report before your referring provider. If you have questions, please contact your health care provider. EXAM: XR CHEST 1 VIEW PORTABLE LOCATION: [facility] DATE: 06/21/2023 INDICATION: Shortness [...] EXAM: XR CHEST 1 VIEW PORTABLE LOCATION: [facility] DATE: 06/21/2023 INDICATION: Shortness of breath COMPARISON: None. IMPRESSION: Vascular congestion with interstitial edema. Left basilaratelectasis/scarring. No pleural effusion. Normal heart size. Justin Almendarez MD GENERAL IMAGIN G * (ABNORMAL) PLATELET COUNT (06/21/2023 5:18 AM CLOTHES PRESSER) Pathologist [facility] PLATELET COUNT 102(L) 140 - 440 thou/cu mm 06/21/2023 6:12 AM CLOTHES PRESSER [facility] MPV 9.0 6.5 - 11.0 fL 06/21/2023 6:12 AM CLOTHES PRESSER [facility] Blood BLOOD SPECIMEN / Unknown Venipuncture / Unknown 06/21/2023 5:18 AM CLOTHES PRESSER 06/21/2023 5:41 AM CLOTHES PRESSER Justin Almendarez MD HEMATOLOGY [facility] SENDOUT INTERNAL ZIP [phone] [place] [address] * (ABNORMAL) WHITE BLOOD COUNT (06/21/2023 5:18 AM CLOTHES PRESSER) WHITE BLOOD COUNT 16.4(H) 4.5 - 11.0 thou/cu mm 06/21/2023 8:44 AM CLOTHES PRESSER [facility] NRBC 0.0 % 06/21/2023 8:44 AM CLOTHES PRESSER [facility] ABS NRBC 0.0 thou /cu mm 06/21/2023 8:44 AM CLOTHES PRESSER [facility] Blood BLOOD SPECIMEN / Unknown Venipuncture / Unknown 06/21/2023 5:18 AM CLOTHES PRESSER 06/21/2023 5:41 AM CLOTHES PRESSER Bruce APONTE HEMATOLOGY [facility] SENDOUT INTERNAL ZIP [phone] [place] [address] * (ABNORMAL) HEMOGLOBIN (06/21/2023 5:18 AM CLOTHES PRESSER) HEMOGLOBIN 12.5(L) 13.5 - 17.5 g/dL 06/21/2023 6:12 AM CLOTHES PRESSER [facility] MCV 93 80 - 100 fL 06/21/2023 6:12 AM CLOTHES PRESSER [facility] Blood BLOOD SPECIMEN / Unknown Venipuncture / Unknown 06/21/2023 5:18 AM CLOTHES PRESSER 06/21/2023 5:41 AM CLOTHES PRESSER Justin Almendarez MD HEMATOLOGY [facility] SENDOUT INTERNAL ZIP [phone] [place] [address] * SODIUM (06/21/2023 5:18 AM CLOTHES PRESSER) SODIUM 141 136 - 145 mmol/L 06/21/2023 8:53 AM CLOTHES PRESSER [facility] Blood BLOOD SPECIMEN / Unknown Venipuncture / Unknown 06/21/2023 5:18 AM CLOTHES PRESSER 06/21/2023 5:41 AM CLOTHES PRESSER Bruce APONTE CHEMISTRY [facility] SENDOUT INTERNAL ZIP [phone] [place] [address] * POTASSIUM (06/21/2023 5:18 AM CLOTHES PRESSER) POTASSIUM 3.9 3.5 - 5.1 mmol/L 06/21/2023 8:53 AM CLOTHES PRESSER [facility] Blood BLOOD SPECIMEN / Unknown Venipuncture / Unknown 06/21/2023 5:18 AM CLOTHES PRESSER 06/21/2023 5:41 AM CLOTHES PRESSER Bruec APONTE CHEMISTRY Performing Organization Address [facility] Phone Number [facility] SENDOUT INTERNAL [facility] [phone] [place] [address] * CREATININE (06/21/2023 5:18 AM CLOTHES PRESSER) eGFR >90 >90 mL/min/1.7 3m2 06/21/2023 6:15 AM CLOTHES PRESSER [facility] Comment:As of 2021, eG FR is calculated by the CKD-EPI creatinine equation without race adjustment. ??eGFR can be influenced by muscle mass, exercise, and diet. ??The reported eGFR is an estimation only and is only applicable if the renal function is stable. CREATININE 0.93 0.70 - 1.20 mg/dL 06/21/2023 6:15 AM CLOTHES PRESSER [facility] Blood BLOOD SPECIMEN / Unknown Venipuncture / Unknown 06/21/2023 5:18 AM CLOTHES PRESSER 06/21/2023 5:41 AM CLOTHES PRESSER Justin Almendarez MD CHEMISTRY Performing Organization Address [facility] Phone Number [facility] SENDOUT INTERNAL [facility] [phone] [place] [address] * (ABNORMAL) PRO-BNP (06/21/2023 5:18 AM CLOTHES PRESSER) PRO-BNP 395(H) <125 pg/mL 06/21/2023 6:17 AM CLOTHES PRESSER [facility] Blood BLOOD SPECIMEN / Unknown Venipuncture / Unknown 06/21/2023 5:18 AM CLOTHES PRESSER 06/21/2023 5:41 AM CLOTHES PRESSER Narrative [facility] - 06/21/2023 6:17 AM CLOTHES PRESSER The following cut-points have been suggested for [...] Almendarez MD SEND OUTS Performing Organization Address [facility] de Phone Number [facility] SENDOUT INTERNAL ZIP [phone] [place] [address] * MAGNESIUM (06/21/2023 5:18 AM CLOTHES PRESSER) MAGNESIUM 1.6 1.6 - 2.4 mg/dL 06/21/2023 10:12 AM CLOTHES PRESSER [facility] Blood BLOOD SPECIMEN / Unknown Venipuncture / Unknown 06/21/2023 5:18 AM CLOTHES PRESSER 06/21/2023 5:41 AM CLOTHES PRESSER Bruce APONTE CHEMISTRY Performing Organization Address [facility] Co de Phone Number [facility] SENDOUT INTERNAL ZIP [phone] [place] [address] * (ABNORMAL) PROTIME-INR (06/21/2023 2:51 AM CLOTHES PRESSER) INR 1.4(H) <1.3 06/21/2023 3:24 AM CLOTHES PRESSER [facility] PROTIME 15.3(H) 10.3 - 12.3 sec 06/21/2023 3:24 AM [facility] Blood BLOOD SPECIMEN / Unknown Venipuncture / Unknown 06/21/2023 2:51 AM CLOTHES PRESSER 06/21/2023 3:01 AM CLOTHES PRESSER Narrative [facility] - 06/21/2023 3:24 AM CLOTHES PRESSER ?Therapeutic Range 2.0-3.0 for most anticoagulated patients [...] is on [facility]FH. Justin Almendarez MD HEMATOLOGY [facility] SENDOUT INTERNAL ZIP [phone] [place] [address] * SCAN-CARDIAC STRIP (06/20/2023 11:59 PM CLOTHES PRESSER) Scanner OTHER from Last 3 Months Advance Directives Latest Code Status on File Code Status Date Activated Date Inactivated Comments DNR 06/21/2023 1:43 AM 06/27/2023 6:20 PM Question Answer Comments Code Status Discussion: Reviewed Preferences Code Status History Code Status Date Activated Date Inactivated Comments Full Code 06/21/2023 12:05 AM 06/21/2023 1:43 AM Question Answer Comments Code Status Discussion: Reviewed Preferences Care Teams Photovoltaic Testing Technician Relationship Specialty Start Date End Date Nat Mccoy PA [address] [place] [address] PCP - General Physician Wreath Machine Tender 06/23/23 [facility] [address] [place] [id number] 06/26/23
== END 2023-07-06 11:25 | disposition home or self-care (01) ==
LOC: AMB 07-09 04:14
PROVIDERS: Visit Provider Student in an Organized Health Care Education/Training Program
DX: R53.81 Other malaise (principal)
CPT/HCPCS: A0425; A0429

== ENCOUNTER 2023-07-06 11:35 | Emergency (ER) | payer MEDICAID, SELFPAY ==
[2023-07-06] VITALS (27 sets, daily range): BP systolic 117–143; BP diastolic 71–93; PULSE 81–94; RESP 18–20; TEMP 36.6; O2SAT 88–95; BMI 35.7
--- NOTE | 2023-07-06 11:46 | PC.SOCIAL ---
Social work: Received call from Hermelinda Aparicio [facility] Vulnerable Adult worker, who has an open [facility] case on this patient. Per Hermelinda, pt is living in unsafe and unsanitary home conditions and is not taking medications as prescribed and is not able to manage his PICC line and IV abx as prescribed. Per Hermelinda, pt had [facility] visits for IV abx care until they terminated their care today due to his non-compliance with his care needs. Home Care reported he partially pulled out his PICC line during their visit. As this is an open Vulnerable Adult case, Hermelinda Aparicio [phone] will be provided with update of discharge plans and follow up needs ans is available to provide additional information on this case as needed.
--- OUTSIDE RECORDS SUMMARY | 2023-07-06 11:57 | XMS_ITS | Clinical Summary ---
Author Name Unknown Organization [facility] Address [place], [place] [address] Care Team Providers Care Simonizer Name Role Phone Nat Mccoy Primary Care Provider + [phone] [facility] Care, Ag Unavailable [phone] Allergies No known active allergies Medications Medication Sig Dispensed Refills Start Date End Date Status ceFAZolin (ANCEF; KEFZOL) injectionIndicat ions:MSSA bacteremia Inject 2 g intravenous every 8 hours for 28 days. 1680 mL 0 06/26/2023 4 Active acetaminophen (TYLENOL) 325 mg tabletIndication s:Septic shock due to urinary tract infection (HC) Take 2 Tablets (650 mg) by mouth every 4 hours if needed for Pain or Temp > (Specify) (Temp >100.4 F (38 C)). Max acetaminophen dose: 4000mg in 24 hrs. 0 06/27/2023 Active pantoprazole (PROTONIX) 40 mg delayed-release tabletIndication s:Gastroesophage al reflux disease without esophagitis Take 1 Tablet (40 mg) by mouth once daily before a meal. 30 Tablet 0 06/28/2023 Active sucralfate (CARAFATE) 1 gram tabletIndication s:PUD (peptic ulcer disease) Take 1 tablet by mouth 4 times daily before meals and at bedtime. 0 11/08/2009 3 Discontinue d(*Patient states no longer taking) omeprazole (PRILOSEC) 20 mg capsuleIndicatio ns:PUD (peptic ulcer disease) Take 1 capsule by mouth 2 times daily before meals. 60 capsule 5 07/16/2012 3 Discontinue d(*Patient states no longer taking) sucralfate (CARAFATE) 1 gram tablet Take 1 tablet by mouth 4 times daily before meals and at bedtime. 120 tablet 4 07/16/2012 3 Discontinue d(*Patient states no longer taking) LORazepam (ATIVAN) 0.5 mg TabIndications:A nxiety state, unspecified Take 1 tablet by mouth at bedtime if needed. 30 tablet 2 07/16/2012 3 Discontinue d(*Patient states no longer taking) escitalopram oxalate (LEXAPRO) 10 mg tablet Take 10 mg by mouth once daily. 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 06/21/2023 Moderate episode of recurrent major depressive d isorder 06/21/2023 History of alcohol abuse 06/21/2023 SOB (shortness of breath) 06/21/2023 Class 2 severe obesity due t o excess calories with serious comorbidity in adult 06/21/2023 Non compliance with medical treatment 06/21/2023 Cirrhosis 08/12/2012 Diarrhea 08/12/2012 Abdominal pain, periumbilic 08/12/2012 Other malaise and fatigue 08/12/2012 Thrombocytopenia 08/12/2012 Anemia, unspecified 08/12/2012 Alcohol dependence 08/12/2012 Anxiety state, unspecified 03/15/2010 Encounters Date Type Department Care Team Description 07/05/2023 11:00 AM MACHINE INSPECTOR Home Care Visit [facility] [address] [place] [address] Puja Hirsch, RN SN - OASIS DISCHARGE 07/05/2023 Home Care Visit [facility] [address] [place] [address] Vida Felder RN CARE COORDINATION 07/04/2023 9:00 AM MACHINE INSPECTOR Home Care Visit [facility] [address] [place] [address] Drew Pena, RN SN - MISSED VISIT 07/03/2023 Home Care Visit [facility] [address] [place] [address], [place] [address] Lena Ron, MANUFACTURING PROCESS ENGINEER CARE COORDINATION 07/02/2023 Home Care Visit [facility] [address] [place] [phone] Carl Haddad, PT CARE COORDINATION 06/28/2023 10:00 AM MACHINE INSPECTOR Home Care Visit [facility] [address] [place] [address], [place] [address] Drew Pena, RN SN IV - START OF CARE 06/28/2023 Plan of Care Documentation [address] [address] 06/28/2023 Patient Outreach [facility] [address] [place] [address] Mary Mayer RN Primary RN Care Management; Hospital F/U (LACE 74) 06/26/2023 Travel 06/21/2023 3:40 PM MACHINE INSPECTOR Anesthesia Event [address] [address] Dave Peterson CRNA Dahl, Ashley Rose Dragavon, MD 06/21/2023 3:10 PM MACHINE INSPECTOR - 06/21/2023 4:10 PM MACHINE INSPECTOR Surgery [address] [address] Chao Villagomez MD CYSTOSCOPY. RIGHT PLACEMENT OF URETERAL STENT, RIGHT RETROGRADES PYELOGRAM 06/21/2023 Travel 06/20/2023 11:37 PM MACHINE INSPECTOR - 06/27/2023 3:50 PM MACHINE INSPECTOR Hospital Encounter [address] [address] s, U Hospitalist [facility] Justin Almendarez MD Kafle, Puskar, MBBS Kroschel, David Mark, MD La, Chip Arthur MD Septic shock due to urinary tract infection (HC) (Primary Dx); Other problems related to housing and economic circumstances; Food insecurity; Transportation insecurity; MSSA bacteremia; Gastroesophageal reflux disease without esophagitis Discharge Disposition: Home Health from Last 3 Months Immunizations Name Administration Dates Next Due Tdap 12/24/2003 Social History Tobacco Use Types Packs/Day Years Used Date Smoking Tobacco: Former Cigarettes Smokeless Tobacco: Never Tobacco Cessation:Counseling Given: Not Answered Alcohol Use Standard Drinks/Week Comments Not Currently 0 (1 standard drink = 0.6 oz pur e alcohol) occasional Social Connections Answer Date Recorded Frequency of Communication with Friends and Fami ly 0 06/21/2023 Financial Resource Strain Answer Date R ecorded Difficulty of Paying Living Expenses 2 06/21/2023 Difficulty of Paying Living Expenses 1 06/21/2023 Food Insecurity Answer Date Recorded Worried About Running Out of Food in the Last Ye ar 2 06/21/2023 Transportation Needs Answer Date Record ed Lack of Transportation (Medical) 2 06/21/2023 Housing Stability Answer Date Recorded Unable to Pay for Housing in the Last Year 1 06/21/2023 Sex and Gender Information Value Date Recorded Sex Assigned at Not on file Gender Identity Not on file Sexual Orientation Not on file Obstetrics History Last Filed Vital Signs Vital Sign Reading Time Taken Comments Blood Pressure 130/62 07/05/2023 11:15 AM MACHINE INSPECTOR Pulse 94 07/05/2023 11:15 AM MACHINE INSPECTOR Temperature 36.9 ??C (98.5 ??F) 07/05/2023 1 1:15 AM MACHINE INSPECTOR Respiratory Rate 22 07/05/2023 11:1 5 AM MACHINE INSPECTOR Oxygen Saturation 94% 07/05/2023 11: 15 AM MACHINE INSPECTOR RA Inhaled Oxygen Concentration - - Weight 106.3 kg (234 lb 6.4 oz) 06/24/2023 3:46 AM MACHINE INSPECTOR Height 172.7 cm (5' 8) 06/20/2023 11:4 5 PM MACHINE INSPECTOR Body Mass Index 35.64 06/20/2023 11:45 PM MACHINE INSPECTOR Plan of Treatment Upcoming Encounters Date Type Department Care Team (Late st Contact Info) Description 07/26/2023 2:10 PM MACHINE INSPECTOR Phone Office Visit [facility] Medical Specialties [address] [facility] [address] [place] [address] Cuba Escudero MD [address] [place] [address] [address] [place] [address] Health Maintenance Due Date Last Done Comments COVID-19 vaccine series (#1) 06/14/1961 Pneumococcal series for age 6-64 (1 of 2 - PCV) 1966 Depression screening for age 12+ 1972 HIV for age 15-65 12/14/1975 BMI (ht and wt on same day) for age 18+ 1978 Colonoscopy through age 75 2005 Lipids for age 45-75 2005 Zoster (shingles) series for age 50+ (1 of 2) 2010 Tetanus booster 12/23/2013 12/24/2003 (Comp leted outside of [facility]), 12/24/2003 Influenza for age 50-64 02/23/2023 Tdap Completed 12/24/2003 Hepatitis C screening for age 18-79 Completed 08/12, 08/12/2012 Medical Devices Implanted Type Area Director Of Business Operations Device Identifier Shelf Expiration Date Model / Serial / Lot Stent Uret [id number] [employer] - [id number] Implanted:Qty: 1 on 06/21/2023 by Chao Villagomez MD at [facility] Right: [facility] 02/09/2026 [id number] / / [id number] Procedures Procedure Name Priority Date/Time Associated Diagnosis Comments SCAN-CARDIAC STRIP 06/27/2023 7: 43 AM MACHINE INSPECTOR CBC WITH AUTO DIFFERENTIAL Early AM 06/27/2023 6:18 AM MACHINE INSPECTOR CBC WITH AUTO DIFFERENTIAL Early AM 06/27/2023 6:18 AM MACHINE INSPECTOR SCAN-CARDIAC STRIP 06/27/2023 3: 28 AM MACHINE INSPECTOR XR CHEST 1 VIEW PICC OR CVAD PLACEMENT PORTABLE STAT 06/26/2023 6:44 PM MACHINE INSPECTOR SCAN-CARDIAC STRIP 06/26/2023 3: 09 PM MACHINE INSPECTOR C-REACTIVE PROTEIN Timed 06/26/2023 1: 30 PM MACHINE INSPECTOR BASIC METABOLIC PANEL SID 06/26/2023 1:30 PM MACHINE INSPECTOR SCAN-CARDIAC STRIP 06/26/2023 10 :56 AM MACHINE INSPECTOR SCAN-CARDIAC STRIP 06/25/2023 11 :00 PM MACHINE INSPECTOR SCAN-CARDIAC STRIP 06/25/2023 5: 43 PM MACHINE INSPECTOR SCAN-CARDIAC STRIP 06/25/2023 7: 05 AM MACHINE INSPECTOR SCAN-CARDIAC STRIP 06/25/2023 12 :06 AM MACHINE INSPECTOR SCAN-CARDIAC STRIP 06/24/2023 8: 00 PM MACHINE INSPECTOR SCAN-CARDIAC STRIP 06/24/2023 4: 42 PM MACHINE INSPECTOR SCAN-CARDIAC STRIP 06/23/2023 3: 23 PM MACHINE INSPECTOR SCAN-CARDIAC STRIP 06/23/2023 8: 00 AM MACHINE INSPECTOR SCAN-CARDIAC STRIP 06/23/2023 12 :29 AM MACHINE INSPECTOR GLUCOSE METER Timed 06/22/2023 9:10 PM MACHINE INSPECTOR SCAN-CARDIAC STRIP 06/22/2023 3: 05 PM MACHINE INSPECTOR C-REACTIVE PROTEIN Timed 06/22/2023 1: 30 PM MACHINE INSPECTOR BLOOD CULTURE Today 06/22/2023 1:30 PM MACHINE INSPECTOR BLOOD CULTURE Today 06/22/2023 1:22 PM MACHINE INSPECTOR GLUCOSE METER Timed 06/22/2023 11:57 AM MACHINE INSPECTOR SCAN CORRESP-IMAGING 06/22/2023 9:43 AM MACHINE INSPECTOR SCAN-CARDIAC STRIP 06/22/2023 8: 00 AM MACHINE INSPECTOR GLUCOSE METER Timed 06/22/2023 6:12 AM MACHINE INSPECTOR PLATELET ESTIMATE Timed 06/22/2023 5:1 8 AM MACHINE INSPECTOR RED CELL MORPHOLOGY Timed 06/22/2023 5 :18 AM MACHINE INSPECTOR CBC W PLT NO DIFF Early AM 06/22/2023 5:1 8 AM MACHINE INSPECTOR GLUCOSE METER Timed 06/22/2023 12:14 AM MACHINE INSPECTOR SCAN-CARDIAC STRIP 06/21/2023 11 :35 PM MACHINE INSPECTOR SCAN-CARDIAC STRIP 06/21/2023 11 :30 PM MACHINE INSPECTOR GLUCOSE METER Timed 06/21/2023 6:50 PM MACHINE INSPECTOR URINE CULTURE Today 06/21/2023 5:44 PM MACHINE INSPECTOR XR RETROGRADE PYELOGRAM W/WO KUB Routine 06/21/2023 4:29 PM MACHINE INSPECTOR CYSTOSCOPY PLACEMENT URETERAL STENT RETROGRADES 06/21/2023 3:30 PM MACHINE INSPECTOR Right ureteral stone Case Notes NPO SCAN CORRESP-IMAGING 06/21/2023 12:30 PM MACHINE INSPECTOR ECHO TTE COMPLETE W CONTRAST Routine 06/21/2023 12:15 PM MACHINE INSPECTOR GLUCOSE METER Timed 06/21/2023 11:55 AM MACHINE INSPECTOR SCAN-CARDIAC STRIP 06/21/2023 9: 45 AM MACHINE INSPECTOR BLOOD CULTURE Today 06/21/2023 9:28 AM MACHINE INSPECTOR BLOOD CULTURE MULTIPLEX PCR Timed 06/21/2023 9:20 AM MACHINE INSPECTOR BLOOD CULTURE Today 06/21/2023 9:20 AM MACHINE INSPECTOR LACTATE VENOUS STAT 06/21/2023 9:20 AM MACHINE INSPECTOR PROCALCITONIN STAT 06/21/2023 9:20 AM MACHINE INSPECTOR SCAN-CARDIAC STRIP 06/21/2023 9: 17 AM MACHINE INSPECTOR GLUCOSE METER Timed 06/21/2023 5:57 AM MACHINE INSPECTOR XR CHEST 1 VIEW PORTABLE Routine 06/21/2023 5:51 AM MACHINE INSPECTOR MAGNESIUM SID 06/21/2023 5:18 AM MACHINE INSPECTOR POTASSIUM SID 06/21/2023 5:18 AM MACHINE INSPECTOR SODIUM SID 06/21/2023 5:18 AM MACHINE INSPECTOR WHITE BLOOD COUNT SID 06/21/2023 5:1 8 AM MACHINE INSPECTOR PRO-BNP Today 06/21/2023 5:18 AM MACHINE INSPECTOR CREATININE Today 06/21/2023 5:18 AM MACHINE INSPECTOR PLATELET COUNT Today 06/21/2023 5:18 AM MACHINE INSPECTOR HEMOGLOBIN Today 06/21/2023 5:18 AM MACHINE INSPECTOR PROTIME-INR Today 06/21/2023 2:51 AM MACHINE INSPECTOR GLUCOSE METER Timed 06/21/2023 12:44 AM MACHINE INSPECTOR SCAN-CARDIAC STRIP 06/20/2023 11 :59 PM MACHINE INSPECTOR from Last 3 Months Results * SCAN-CARDIAC STRIP (06/27/2023 7:43 AM MACHINE INSPECTOR) Scanner OTHER * (ABNORMAL) CBC WITH AUTO DIFFERENTIAL (06/27/2023 6:18 AM MACHINE INSPECTOR) WHITE BLOOD COUNT 9.0 4.5 - 11.0 thou/cu mm 06/27/2023 6:33 AM [facility] RED BLOOD COUNT 4.17(L) 4.30 - 5.90 mil/cu mm 06/27/2023 6:33 AM [facility] HEMOGLOBIN 12.6(L) 13.5 - 17.5 g/dL 06/27/2023 6:33 AM [facility] HEMATOCRIT 38.2 37.0 - 53.0 % 06/27/2023 6:33 AM [facility] MCV 92 80 - 100 fL 06/27/2023 6:33 AM [facility] MCH 30.2 26.0 - 34.0 pg 06/27/2023 6:33 AM [facility] MCHC 33.0 32.0 - 36.0 g/dL 06/27/2023 6:33 AM [facility] RDW 16.0(H) 11.5 - 15.5 % 06/27/2023 6:33 AM [facility] PLATELET COUNT 131(L) 140 - 440 thou/cu mm 06/27/2023 6:33 AM [facility] MPV 9.2 6.5 - 11.0 fL 06/27/2023 6:33 AM [facility] NRBC 0.0 % 06/27/2023 6:33 AM [facility] ABS NRBC 0.0 thou /cu mm 06/27/2023 6:33 AM [facility] % NEUT 59.7 % 06/27/2023 6:33 AM [facility] % LYMPH 26.4 % 06/27/2023 6:33 AM [facility] % MONO 8.7 % 06/27/2023 6:33 AM [facility] % EOS 3.4 % 06/27/2023 6:33 AM [facility] % BASO 0.9 % 06/27/2023 6:33 AM [facility] % IMMATURE GRAN (METAS,MYELOS,SD OS) 0.9 % 06/27/2023 6:33 AM [facility] ABSOLUTE NEUTROPHILS 5.4 1.7 - 7.0 thou/cu mm 06/27/2023 6:33 AM [facility] ABSOLUTE LYMPHOCYTES 2.4 0.9 - 2.9 thou/cu mm 06/27/2023 6:33 AM [facility] ABSOLUTE MONOCYTES 0.8 <0.9 thou/cu mm 06/27/2023 6:33 AM [facility] ABSOLUTE EOSINOPHILS 0.3 <0.5 thou/cu mm 06/27/2023 6:33 AM [facility] ABSOLUTE BASOPHILS 0.1 <0.3 thou/cu mm 06/27/2023 6:33 AM [facility] ABSOLUTE IMMATURE GRANULOCYTES(MET ,MYELOS,PROS) 0.1 <0.3 thou/cu mm 06/27/2023 6:33 AM [facility] Blood BLOOD SPECIMEN / Unknown Non-Lab Venipuncture / Unknown 06/27/2023 6:18 AM MACHINE INSPECTOR 06/27/2023 6:27 AM [facility] Cuba Escudero MD HEMATOLOGY [facility] SENDOUT INTERNAL ZIP [phone] [place] [address] * SCAN-CARDIAC STRIP (06/27/2023 3:28 AM MACHINE INSPECTOR) Scanner OTHER * XR Chest PICC Line Placement Portable (06/26/2023 6:44 PM MACHINE INSPECTOR) Anatomical Region Laterality Modality HEART, THORAX, CHEST Computed Ra diography 06/26/2023 6:44 PM MACHINE INSPECTOR Impressions 06/26/2023 10:06 PM MACHINE INSPECTOR Left PICC with tip in the SVC in good location. Mild bibasilar infiltrates. Degenerative changes in the right shoulder. Narrative 06/26/2023 10:06 PM MACHINE INSPECTOR For Patients: As a result of the Cures Act, medical imaging exams and procedure reports are released immediately into your electronic medical record. You may view this report before your referring provider. If you have questions, please contact your health care provider. EXAM: XR CHEST 1 VIEW PICC OR CVAD PLACEMENT PORTABLE LOCATION: [facility] MEDICAL IMAGING DATE: 06/26/2023 INDICATION: Line placement. COMPARISON: None. Procedure Note Wally Calix MD - 06/26/2023 For Patients: As a result of the Cures Act, medical imagingexams and procedure reports are released immediately into your electronicmedical record. You may view this report before your referring provider.If you have questions, please contact your health care provider. EXAM: XR CHEST 1 VIEW PICC OR CVAD PLACEMENT PORTABLE LOCATION: [facility] MEDICAL [facility] DATE: 06/26/2023 INDICATION: Line placement. COMPARISON: None. IMPRESSION: Left PICC with tip in the SVC in good location. Mild bibasilarinfiltrates. Degenerative changes in the right shoulder. Chip Samuel MD GENERAL IMAGING * SCAN-CARDIAC STRIP (06/26/2023 3:09 PM MACHINE INSPECTOR) Scanner OTHER * (ABNORMAL) C-REACTIVE PROTEIN (06/26/2023 1:30 PM MACHINE INSPECTOR) Only the most recent of2 resultswithin the time period is included. C-REACTIVE PROTEIN 2.1(H) <0.5 mg/dL 06/26/2023 1:58 PM [facility] Blood BLOOD SPECIMEN / Unknown Butterfly / Unknown 06/26/2023 1:30 PM MACHINE INSPECTOR 06/26/2023 1:35 PM MACHINE INSPECTOR Danagera Estevan Escudero MD CHEMISTRY [facility] SENDOUT INTERNAL ZIP [phone] [place] [id number] * (ABNORMAL) BASIC METABOLIC PANEL (06/26/2023 1:30 PM MACHINE INSPECTOR) SODIUM 137 136 - 145 mmol/L 06/26/2023 2:02 PM [facility] POTASSIUM 4.0 3.5 - 5.1 mmol/L 06/26/2023 2:02 PM [facility] CHLORIDE 106 98 - 107 mmol/L 06/26/2023 2:02 PM [facility] CO2,TOTAL 28 22 - 29 mmol/L 06/26/2023 2:02 PM [facility] ANION GAP 3(L) 5 - 18 06/26/2023 2:02 PM [facility] GLUCOSE 96 70 - 99 mg/dL 06/26/2023 2:02 PM [facility] CALCIUM 8.4(L) 8.8 - 10.2 mg/dL 06/26/2023 2:02 PM [facility] BUN 11 8 - 23 mg/dL 06/26/2023 2:02 PM [facility] CREATININE 0.46(L) 0.70 - 1.20 mg/dL 06/26/2023 2:02 PM [facility] BUN/CREAT RATIO 24(H) 10 - 20 2:02 PM [facility] eGFR >90 >90 mL/min/1.7 3m2 06/26/2023 2:02 PM [facility] Comment:As of 2021, eG FR is calculated by the CKD-EPI creatinine equation without race adjustment. ??eGFR can be influenced by muscle mass, exercise, and diet. ??The reported eGFR is an estimation only and is only applicable if the renal function is stable. Blood BLOOD SPECIMEN / Unknown Butterfly / Unknown 06/26/2023 1:30 PM MACHINE INSPECTOR 06/26/2023 1:35 PM MACHINE INSPECTOR Cuba Escudero MD CHEMISTRY [facility] SENDOUT INTERNAL ZIP [phone] [place] [address] * SCAN-CARDIAC STRIP (06/26/2023 10:56 AM MACHINE INSPECTOR) Scanner OTHER * SCAN-CARDIAC STRIP (06/25/2023 11:00 PM MACHINE INSPECTOR) Scanner OTHER * SCAN-CARDIAC STRIP (06/25/2023 5:43 PM MACHINE INSPECTOR) Scanner OTHER * SCAN-CARDIAC STRIP (06/25/2023 7:05 AM MACHINE INSPECTOR) Scanner OTHER * SCAN-CARDIAC STRIP (06/25/2023 12:06 AM MACHINE INSPECTOR) Scanner OTHER * SCAN-CARDIAC STRIP (06/24/2023 8:00 PM MACHINE INSPECTOR) Scanner OTHER * SCAN-CARDIAC STRIP (06/24/2023 4:42 PM MACHINE INSPECTOR) Scanner OTHER * SCAN-CARDIAC STRIP (06/23/2023 3:23 PM MACHINE INSPECTOR) Scanner OTHER * SCAN-CARDIAC STRIP (06/23/2023 8:00 AM MACHINE INSPECTOR) Scanner OTHER * SCAN-CARDIAC STRIP (06/23/2023 12:29 AM MACHINE INSPECTOR) Scanner OTHER * (ABNORMAL) GLUCOSE METER (06/22/2023 9:10 PM MACHINE INSPECTOR) Only the most recent of8 resultswithin the time period is included. [facility] Signature GLUCOSE METER 131(H) 65 - 100 mg/dL 06/22/2023 9:11 PM MACHINE INSPECTOR [facility] Blood BLOOD SPECIMEN / Unknown 06/22/2023 9:10 PM MACHINE INSPECTOR 06/22/2023 9:11 PM MACHINE INSPECTOR Bruce Rothman [facility] CHEMISTRY [facility] SENDOUT INTERNAL ZIP [phone] [place] [id number] * SCAN-CARDIAC STRIP (06/22/2023 3:05 PM MACHINE INSPECTOR) Scanner OTHER * BLOOD CULTURE (06/22/2023 1:30 PM MACHINE INSPECTOR) Only the most recent of4 resultswithin the time period is included. [facility] CULTURE No Growth. 06/26/2023 6:40 PM MACHINE INSPECTOR [facility] Blood BLOOD SPECIMEN / Unknown Venipuncture / Unknown 06/22/2023 1:30 PM MACHINE INSPECTOR 06/22/2023 1:54 PM MACHINE INSPECTOR Bruce Rothman [facility] MICROBIOLOGY Performing Organization Address City/[facility]/ZIP Co de Phone Number [facility] [address] [place] [address], * SCAN CORRESP-IMAGING (06/22/2023 9:43 AM MACHINE INSPECTOR) Only the most recent of2 resultswithin the time period is included. Anatomical Region Laterality Modality Other Narrative 06/22/2023 9:43 AM MACHINE INSPECTOR Ordered by an unspecified provider. Other Clinical Staff OTHER * SCAN-CARDIAC STRIP (06/22/2023 8:00 AM MACHINE INSPECTOR) Scanner OTHER * (ABNORMAL) RED CELL MORPHOLOGY (06/22/2023 5:18 AM MACHINE INSPECTOR) [facility] POLYCHROMASIA Slight 06/22/2023 6:40 AM MACHINE INSPECTOR [facility] RBC COMMENT Present(A) RBC morphology appears normal, RBC morphology within normal limits for newborns. 06/22/2023 6:40 AM MACHINE INSPECTOR [facility] Blood BLOOD SPECIMEN / Unknown Venipuncture / Unknown 06/22/2023 5:18 AM MACHINE INSPECTOR 06/22/2023 5:29 AM MACHINE INSPECTOR Bruce Rothman [facility] HEMATOLOGY [facility] SENDOUT INTERNAL ZIP [address] [place] [phone] * (ABNORMAL) PLATELET ESTIMATE (06/22/2023 5:18 AM MACHINE INSPECTOR) PLATELET ESTIMATE Decreased (A) Adequate, No estimate 06/22/2023 6:40 AM MACHINE INSPECTOR [facility] Blood BLOOD SPECIMEN / Unknown Venipuncture / Unknown 06/22/2023 5:18 AM MACHINE INSPECTOR 06/22/2023 5:29 AM MACHINE INSPECTOR Bruce Rothman [facility] HEMATOLOGY Performing Organization Address City/[facility]/ZIP Co de Phone Number [facility] SENDOUT INTERNAL ZIP [phone] [place] [phone] * (ABNORMAL) CBC W PLT NO DIFF (06/22/2023 5:18 AM MACHINE INSPECTOR) WHITE BLOOD COUNT 8.3 4.5 - 11.0 thou/cu mm 06/22/2023 6:40 AM MACHINE INSPECTOR [facility] RED BLOOD COUNT 3.82(L) 4.30 - 5.90 mil/cu mm 06/22/2023 6:40 AM [facility] HEMOGLOBIN 11.8(L) 13.5 - 17.5 g/dL 06/22/2023 6:40 AM [facility] HEMATOCRIT 35.9(L) 37.0 - 53.0 % 06/22/2023 6:40 AM [facility] MCV 94 80 - 100 fL 06/22/2023 6:40 AM [facility] MCH 30.9 26.0 - 34.0 pg 06/22/2023 6:40 AM [facility] MCHC 32.9 32.0 - 36.0 g/dL 06/22/2023 6:40 AM [facility] RDW 16.3(H) 11.5 - 15.5 % 06/22/2023 6:[address] [facility] PLATELET COUNT 91(L) 140 - 440 thou/cu mm 06/22/2023 6:40 AM MACHINE INSPECTOR [facility] MPV 9.6 6.5 - 11.0 fL 06/22/2023 6:[address] [facility] NRBC 0.0 % 06/22/2023 6:40 AM MACHINE INSPECTOR [facility] ABS NRBC 0.0 thou /cu mm 06/22/2023 6:[address] [facility] Blood BLOOD SPECIMEN / Unknown Venipuncture / Unknown 06/22/2023 5:18 AM MACHINE INSPECTOR 06/22/2023 5:29 AM MACHINE INSPECTOR Bruce APONTE HEMATOLOGY [facility] SENDOUT [facility] [id number] [place] [address] * SCAN-CARDIAC STRIP (06/21/2023 11:35 PM MACHINE INSPECTOR) Scanner OTHER * SCAN-CARDIAC STRIP (06/21/2023 11:30 PM MACHINE INSPECTOR) Scanner OTHER * URINE CULTURE (06/21/2023 5:44 PM MACHINE INSPECTOR) CULTURE No growth (<1,000 CFU/mL) 06/22/2023 3:38 PM MACHINE INSPECTOR [facility] Urine URINE SPECIMEN / Unknown Non-Blood / Unknown 06/21/2023 5:44 PM MACHINE INSPECTOR 06/21/2023 5:52 PM MACHINE INSPECTOR Bruce APONTE [facility] [address] [place] [address], * XR RETROGRADE PYELOGRAM W/WO KUB (06/21/2023 4:29 PM MACHINE INSPECTOR) Anatomical Region Laterality Modality KIDNEYS, Abdomen Computed Radiog barry 06/21/2023 4:29 PM MACHINE INSPECTOR Impressions 06/21/2023 5:50 PM MACHINE INSPECTOR Fluoroscopic services were provided to the urology service for purposes of double-J ureteral stent placement. 2 spot fluoroscopic images demonstrate expected positioning of a right double-J ureteral stent with proximal loop in the right renal pelvis and distal loop projecting over the expected location of the urinary bladder. Incidentally noted cholelithiasis. Please see separately dictated urology procedure note for additional details. Narrative 06/21/2023 5:50 PM MACHINE INSPECTOR For Patients: As a result of the Cures Act, medical imaging exams and procedure reports are released immediately into your electronic medical record. You may view this report before your referring provider. If you have questions, please contact your health care provider. EXAM: XR RETROGRADE PYELOGRAM W/WO KUB LOCATION: [facility] MEDICAL IMAGING DATE: 06/21/2023 INDICATION: Eval suspected/known obstruction COMPARISON: CT abdomen and pelvis 08/27/2012 TECHNIQUE: Exam performed by urologist. FLUOROSCOPIC TIME: 10 sec 6 sec NUMBER OF IMAGES: 2 Procedure Note Christos Arriaga MD - 06/21/2023 For Patients: As a result of the Cures Act, medical imagingexams and procedure reports are released immediately into your electronicmedical record. You may view this report before your referring provider.If you have questions, please contact your health care provider. EXAM: XR RETROGRADE PYELOGRAM W/WO KUB LOCATION: [facility] MEDICAL IMAGING DATE: 06/21/2023 INDICATION: Eval suspected/known obstruction COMPARISON: CT abdomen and pelvis 08/27/2012 TECHNIQUE: Exam performed by urologist. FLUOROSCOPIC TIME: 10 sec 6 sec NUMBER OF IMAGES: 2 IMPRESSION: Fluoroscopic services were provided to the urology service for purposes ofdouble-J ureteral stent placement. 2 spot fluoroscopic images demonstrateexpected positioning of a right double-J ureteral stent with proximal loopin the right renal pelvis and distal loop projecting over the expectedlocation of the urinary bladder. Incidentally noted cholelithiasis. Pleasesee separately dictated urology procedure note for additional details. Chao Villagomez MD GENERAL IMAGING * ECHO TTE COMPLETE W CONTRAST (06/21/2023 12:15 PM MACHINE INSPECTOR) EJECTION FRACTION 60-65% PROSOLV Anatomical Region Laterality Modality Ultrasound 06/21/2023 10:4 5 AM MACHINE INSPECTOR Narrative 06/21/2023 3:32 [place] [address] Main: [email or web address] ? Transthoracic Echo Report MICHELLE KLEIN Hannyluli ID: [id number] Age: 62 : 1960 Ordering Provider: JUSTIN ALMENDAREZ Exam Date: 06/21/2023 10:45 Gender: M Corporate Strategy Analyst: [employer] Height: 68 in BSA: 2.17 m?? BP: 101 / 67 Weight: 231 lbs BMI: 35.1 kg/m?? HR: 92 Location: Inpatient (Portable) Rhythm: Sinus Tachycardia Procedure Components: 2D imaging with contrast, Color Doppler, Spectral Doppler Indications: Dyspnea Technical Quality: Fair, Technically difficult study Contrast: Definity Constrast Dose (ml): 0.15 [facility]#: [id number] Final Conclusion 1. Normal left ventricular chamber size. ??Calculated left ventricular ejection fraction (modified Dixon technique) is 64 %. 2. No regional wall motion abnormalities. 3. No significant valvular heart disease. Estimated EF: 60-65% FINDINGS Left Ventricle Normal left ventricular chamber size. Normal left ventricular wall thickness. Normal left ventricular systolic function. Calculated left ventricular ejection fraction (modified Dixon technique) is 64 %. No regional wall motion abnormalities. Diastolic Function Normal left ventricular diastolic function. Right Ventricle Mild right ventricular chamber enlargement. Normal right ventricular systolic function. Right ventricular systolic pressure cannot be estimated due to inability to detect peak tricuspid regurgitation Doppler velocity. Left Atrium Mild left atrial enlargement. Left atrial volume index is 37 ml/m??. Right Atrium Normal right atrial size. Atrial Septum No evidence of inter-atrial shunt by color flow Doppler. Aortic Valve Trileaflet aortic valve. Mildly calcified aortic valve. Very mildly elevated velocities through the aortic valve without significant stenosis. Aortic valve systolic mean gradient is 11 mmHg. Aortic valve systolic peak velocity is 2.1 m/sec. Aortic valve dimensionless index is 0.8. No aortic valve regurgitation. Mitral Valve Mildly thickened mitral valve. Trivial mitral valve regurgitation. No mitral valve stenosis. Tricuspid Valve Normal tricuspid valve. Trivial tricuspid valve regurgitation. Pulmonic Valve Normal pulmonary valve. Trivial pulmonary valve regurgitation. Normal pulmonary valve systolic Doppler profile. Pericardium No pericardial effusion. Aorta Aortic sinus of Valsalva is normal in size (4 cm, ZScore = 1.1). Normal indexed ascending aorta dimension (3.9 cm, 1.8 cm/m??). Inferior Vena Cava Upper normal inferior vena cava with decreased inspiratory collapse. MEASUREMENTS ??(Male / Female) Normal Values 2D MEASUREMENTS AND LV FUNCTION IVS Diastolic Thickness ? 0.8 cm ?< 1.1 cm / < 1.0 cm LV Diastolic Diameter PLAX ?5.2 cm ?4.2 - 5.9 / 3.9 - 5.3 cm LV Diastolic Diameter Index ? 2.39 cm/m?? LVPW Diastolic Thickness ?0.9 cm ?< 1.1 cm / < 1.0 cm LV Systolic Diameter PLAX ? 2.9 cm LV Systolic Diameter Index ?1.33 cm/m?? LVOT Diameter ? 2 cm LVOT Cardiac Output ? 8.92 l/min LVOT Cardiac Index ?3.91 l/min??m?? LVOT Stroke Volume ?97 ml Stroke Volume Index ? 42.5 ml/m?? LV Ejection Fraction MOD BP ? 64.2 % ?>= 55 ??% LA Area 4C View ? 22.3 cm?? LA Length 4C ?6.27 cm LA Area 2C View ? 28.7 cm?? LA Length 2C ?6.74 cm LA Volume MOD BP ?81.2 ml LA Volume Index MOD BP ?37.4 ml/m?16 - 34 ml/m?? RV Diastolic Basal Diameter ? 4.1 cm RV Diastolic Mid Diameter ? 3.8 cm LV Mass ? 157 g LV Mass Index ? 70 g/m?? Sinuses of Valsalva Diameter(d) ?? 4 cm Ascending Aorta Diameter(s) ? 3.9 cm IVC Diameter Expiration ? 2.1 cm Ascending Aorta Index ? 1.79 cm/m?? M MODE TAPSE MM ?2.33 cm DIASTOLOGY Mitral E Point Velocity ? 0.687 m/sec ? 0.70 - 1.02 m/sec Mitral A Point Velocity ? 0.641 m/sec ? 0.06 - 1.06 m/sec Mitral E to A Ratio ? 1.07 ?1.1 - 2.1 MV Deceleration Time ?258 msec ?167 - 231 msec LV E' Lateral Velocity ?0.13 m/sec Mitral E to LV E' Lateral Ratio ?? 5.28 LV E' Septal Velocity ? 0.0876 m/sec Mitral E to LV E' Septal Ratio ?7.84 AORTIC VALVE AV Peak Velocity ?2.1 m/sec ? < 2.0 m/sec AV Peak Gradient ?17.6 mmHg AV Mean Gradient ?11 mmHg AV Velocity Time Integral ? 38.8 cm LVOT Peak Velocity ?1.71 m/sec LVOT Velocity Time Integral ? 30.9 cm AV Area Cont Eq vti ? 2.5 cm?? AV Area Cont Eq pk ?2.56 cm?? AV Dimensionless Index ?0.796 MITRAL VALVE MV Pressure Half Time ? 76 msec MV Area PHT ? 2.89 cm?? TRICUSPID VALVE AND ESTIMATED PRESSURES Right Atrial Pressure ? 8 mmHg HCM DATA LVOT SOILA (r) ?11.7 mmHg Aortic Root ZScore: 1.09 Fawad Alba MD [facility] Accredited Site (Electronically Signed) Final Date: 21 June 2023 15:31 ICD-10 Codes: 786.09 Procedure Note Fawad Alba MD - 06/21/2023 [place] [address] Main: [email or web address] Transthoracic Echo Report MICHELLE KLEIN Hannyluli ID: [id number] Age: 62 : 1960 Ordering Provider:JUSTIN ALMENDAREZ Exam Date: 06/21/2023 10:45 Gender: M Corporate Strategy Analyst: [employer] Height: 68 in BSA: 2.17 m?? BP: 101 / 67 Weight: 231 lbs BMI: 35.1 kg/m?? HR: 92 Location: Inpatient (Portable) Rhythm: Sinus Tachycardia Procedure Components: 2D imaging with contrast, Color Doppler, SpectralDoppler Indications: Dyspnea Technical Quality: Fair, Technically difficult study Contrast: Definity Constrast Dose (ml): 0.15 [facility]#: [id number] Final Conclusion 1. Normal left ventricular chamber size. Calculated left ventricularejection fraction (modified Dixon technique) is 64 %. 2. No regional wall motion abnormalities. 3. No significant valvular heart disease. Estimated EF: 60-65% FINDINGS Left Ventricle Normal left ventricular chamber size. Normal leftventricular wall thickness. Normal left ventricular systolic function. Calculated left ventricular ejection fraction (modified Simpsontechnique) is 64 %. No regional wall motion abnormalities. Diastolic Function Normal left ventricular diastolic function. Right Ventricle Mild right ventricular chamber enlargement. Normal rightventricular systolic function. Right ventricular systolic pressure cannot be estimated due to inability to detect peak tricuspidregurgitation Doppler velocity. Left Atrium Mild left atrial enlargement. Left atrial volume index is 37ml/m??. Right Atrium Normal right atrial size. Atrial Septum No evidence of inter-atrial shunt by color flow Doppler. Aortic Valve Trileaflet aortic valve. Mildly calcified aortic valve. Verymildly elevated velocities through the aortic valve without significant stenosis. Aortic valve systolic mean gradient is 11mmHg. Aortic valve systolic peak velocity is 2.1 m/sec. Aortic valve dimensionless index is 0.8. No aortic valveregurgitation. Mitral Valve Mildly thickened mitral valve. Trivial mitral valveregurgitation. No mitral valve stenosis. Tricuspid Valve Normal tricuspid valve. Trivial tricuspid valveregurgitation. Pulmonic Valve Normal pulmonary valve. Trivial pulmonary valveregurgitation. Normal pulmonary valve systolic Doppler profile. Pericardium No pericardial effusion. Aorta Aortic sinus of Valsalva is normal in size (4 cm, ZScore = 1.1).Normal indexed ascending aorta dimension (3.9 cm, 1.8 cm/m??). Inferior Vena Cava Upper normal inferior vena cava with decreasedinspiratory collapse. MEASUREMENTS (Male / Female) Normal Values 2D MEASUREMENTS AND LV FUNCTION IVS Diastolic Thickness 0.8 cm < 1.1 cm / < 1.0cm LV Diastolic Diameter PLAX 5.2 cm 4.2 - 5.9 / 3.9 -5.3 cm LV Diastolic Diameter Index 2.39 cm/m?? LVPW Diastolic Thickness 0.9 cm < 1.1 cm / < 1.0cm LV Systolic Diameter PLAX 2.9 cm LV Systolic Diameter Index 1.33 cm/m?? LVOT Diameter 2 cm LVOT Cardiac Output 8.92 l/min LVOT Cardiac Index 3.91 l/min??m?? LVOT Stroke Volume 97 ml Stroke Volume Index 42.5 ml/m?? LV Ejection Fraction MOD BP 64.2 % >= 55 % LA Area 4C View 22.3 cm?? LA Length 4C 6.27 cm LA Area 2C View 28.7 cm?? LA Length 2C 6.74 cm LA Volume MOD BP 81.2 ml LA Volume Index MOD BP 37.4 ml/m?? 16 - 34 ml/m?? RV Diastolic Basal Diameter 4.1 cm RV Diastolic Mid Diameter 3.8 cm LV Mass 157 g LV Mass Index 70 g/m?? Sinuses of Valsalva Diameter(d) 4 cm Ascending Aorta Diameter(s) 3.9 cm IVC Diameter Expiration 2.1 cm Ascending Aorta Index 1.79 cm/m?? M MODE TAPSE MM 2.33 cm DIASTOLOGY Mitral E Point Velocity 0.687 m/sec 0.70 - 1.02m/sec Mitral A Point Velocity 0.641 m/sec 0.06 - 1.06m/sec Mitral E to A Ratio 1.07 1.1 - 2.1 MV Deceleration Time 258 msec 167 - 231 msec LV E' Lateral Velocity 0.13 m/sec Mitral E to LV E' Lateral Ratio 5.28 LV E' Septal Velocity 0.0876 m/sec Mitral E to LV E' Septal Ratio 7.84 AORTIC VALVE AV Peak Velocity 2.1 m/sec < 2.0 m/sec AV Peak Gradient 17.6 mmHg AV Mean Gradient 11 mmHg AV Velocity Time Integral 38.8 cm LVOT Peak Velocity 1.71 m/sec LVOT Velocity Time Integral 30.9 cm AV Area Cont Eq vti 2.5 cm?? AV Area Cont Eq pk 2.56 cm?? AV Dimensionless Index 0.796 MITRAL VALVE MV Pressure Half Time 76 msec MV Area PHT 2.89 cm?? TRICUSPID VALVE AND ESTIMATED PRESSURES Right Atrial Pressure 8 mmHg HCM DATA LVOT SOILA (r) 11.7 mmHg Aortic Root ZScore: 1.09 Fawad Alba MD [facility] Accredited Site (Electronically Signed) Final Date: 21 June 2023 15:31 ICD-10 Codes: 786.09 Justin Almendarez MD ECHO ORD * SCAN-CARDIAC STRIP (06/21/2023 9:45 AM MACHINE INSPECTOR) Scanner OTHER * (ABNORMAL) BLOOD CULTURE MULTIPLEX PCR (06/21/2023 9:20 AM MACHINE INSPECTOR) Organism(s) Detected Staphylococcus aureus(AA) No organism targets detected., Invalid 3 10:20 AM MACHINE INSPECTOR [facility] Resistance Gene(s) None detected None detected 3 10:20 AM MACHINE INSPECTOR [facility] CTX-M (ESBL-resistance gene) N/A 3 10:20 AM MACHINE INSPECTOR [facility] IMP (carbapenem-resistan ce gene) N/A NOT Detected, N/A 3 10:20 AM MACHINE INSPECTOR [facility] KPC (carbapenem-resistan ce gene) N/A NOT Detected, N/A 3 10:20 AM MACHINE INSPECTOR [facility] mcr-1 (colistin-resistance gene) N/A 3 10:20 AM MACHINE INSPECTOR [facility] mecA/C (methicillin-resista nce gene) N/A 3 10:20 AM MACHINE INSPECTOR [facility] mecA/C and MREJ (methicillin-resista nce gene) NOT Detected 3 10:20 AM MACHINE INSPECTOR [facility] NDM (carbapenem-resistan ce gene) N/A NOT Detected, N/A 3 10:20 AM MACHINE INSPECTOR [facility] OXA-48 like (carbapenem-resistan ce gene) N/A NOT Detected, N/A 3 10:20 AM MACHINE INSPECTOR [facility] van A/B (vancomycin-resistan ce genes) N/A 3 10:20 AM MACHINE INSPECTOR [facility] VIM (carbapenem-resistan ce gene) N/A NOT Detected, N/A 3 10:20 AM MACHINE INSPECTOR [facility] Enterococcus faecalis NOT Detected 3 10:20 AM MACHINE INSPECTOR [facility] Enterococcus faecium NOT Detected 3 10:20 AM MACHINE INSPECTOR [facility] Listeria monocytogenes NOT Detected 3 10:20 AM MACHINE INSPECTOR [facility] Staphylococcus Detected 3 10:20 AM MACHINE INSPECTOR [facility] Staphlococcus aureus Detected 05/26 3 10:20 AM MACHINE INSPECTOR [facility] Staphylococcus epidermidis NOT Detected 3 10:20 AM MACHINE INSPECTOR [facility] Staphylococcus lugdunensis NOT Detected 3 10:20 AM MACHINE INSPECTOR [facility] Streptococcus NOT Detected 3 10:20 AM MACHINE INSPECTOR [facility] Streptococcus agalactiae (Group B) NOT Detected 3 10:20 AM MACHINE INSPECTOR [facility] Streptococcus pneumoniae NOT Detected 3 10:20 AM MACHINE INSPECTOR [facility] Streptococcus pyogenes (Group A) NOT Detected 3 10:20 AM MACHINE INSPECTOR [facility] Acinetobacter calcoaceticus-vannesa david complex NOT Detected 3 10:20 AM MACHINE INSPECTOR [facility] Enterobacteriaceae NOT Detected 05/26 3 10:20 AM MACHINE INSPECTOR [facility] Enterobacter cloacae complex NOT Detected 3 10:20 AM MACHINE INSPECTOR [facility] Escherichia coli NOT Detected 3 10:20 AM MACHINE INSPECTOR [facility] Klebsiella oxytoca NOT Detected 05/26 3 10:20 AM MACHINE INSPECTOR [facility] Klebsiella pneumoniae group NOT Detected 3 10:20 AM MACHINE INSPECTOR [facility] Proteus NOT Detected 3 10:20 AM MACHINE INSPECTOR [facility] Serratia marcescens NOT Detected 3 10:20 AM MACHINE INSPECTOR [facility] Haemophilus influenzae NOT Detected 3 10:20 AM MACHINE INSPECTOR [facility] Neisseria meningitidis NOT Detected 3 10:20 AM MACHINE INSPECTOR [facility] Pseudomonas aeruginosa NOT Detected 3 10:20 AM MACHINE INSPECTOR [facility] Yuliana albicans NOT Detected 3 10:20 AM MACHINE INSPECTOR [facility] Yuliana glabrata NOT Detected 3 10:20 AM MACHINE INSPECTOR [facility] Yuliana krusei NOT Detected 06/22/20 2 3 10:20 AM MACHINE INSPECTOR [facility] Yuliana parapsilosis NOT Detected 3 10:20 AM MACHINE INSPECTOR [facility] Yuliana tropicalis NOT Detected 05/26 3 10:20 AM MACHINE INSPECTOR [facility] Bacteroides fragilis group NOT Detected 3 10:20 AM MACHINE INSPECTOR [facility] Klebsiella aerogenes NOT Detected 3 10:20 AM MACHINE INSPECTOR [facility] Salmonella NOT Detected 3 10:20 AM MACHINE INSPECTOR [facility] Stenotrophomonas maltophilia NOT Detected 3 10:20 AM MACHINE INSPECTOR [facility] Yuliana auris NOT Detected 3 10:20 AM MACHINE INSPECTOR [facility] Cryptococcus neoformans/gattii NOT Detected 3 10:20 AM MACHINE INSPECTOR [facility] Blood BLOOD SPECIMEN / Unknown Venipuncture / Unknown 06/21/2023 9:20 AM MACHINE INSPECTOR 06/21/2023 9:35 AM MACHINE INSPECTOR Bruce APONTE MICROBIOLOGY [facility] [address] [place] [address], * LACTATE VENOUS (06/21/2023 9:20 AM MACHINE INSPECTOR) LACTATE,VENOUS 1.5 0.5 - 2.0 mmol/L 06/21/2023 9:59 AM MACHINE INSPECTOR [facility] Blood BLOOD SPECIMEN / Unknown Venipuncture / Unknown 06/21/2023 9:20 AM MACHINE INSPECTOR 06/21/2023 9:29 AM MACHINE INSPECTOR Bruce COOMBS CHEMISTRY [facility] SENDOUT INTERNAL ZIP [phone] [place] [phone] * (ABNORMAL) PROCALCITONIN (06/21/2023 9:20 AM MACHINE INSPECTOR) PROCALCITONIN 15.30(H) ng/ml 06/21/2023 10:06 AM MACHINE INSPECTOR [facility] Blood BLOOD SPECIMEN / Unknown Venipuncture / Unknown 06/21/2023 9:20 AM MACHINE INSPECTOR 06/21/2023 9:29 AM MACHINE INSPECTOR Narrative [facility] - 06/21/2023 10:06 AM MACHINE INSPECTOR Procalcitonin for initial assessment of Lower Respiratory Tract Infection: Results Interpretation <0.10 ng/mL Antibiotic therapy strongly discoraged. ??Indicates absent of bacterial infection. * 0.10 - 0.25 ng/mL Antibiotic therapy discouraged. ??Bacterial infection unlikely. * 0.26 - 0.50 ng/mL Antibiotic therapy encouraged. ??Bacterial infection possible. >0.50 ng/mL Antibiotic therapy strongly encouraged. ??Suggestive of presence of bacterial infection. *Antibiotic therapy should be considered regardless of PCT result if the patient is clinically unstable, is at high risk for adverse outcome, has strong evidence of bacterial pathogen, or the clinical context indicates antibiotic therapy is warranted. ??If antibiotics are withheld, reassess if symptoms persist/worsen and/or repeat PCT measurement within 6-24 hours. ? In order to assess treatment success and to support a decision to discontinue antibiotic therapy, follow up samples should be tested once every 1-2 days, based upon physician discretion taking into account patient's evolution and progress. Procalcitonin for initial assessment of severe sepsis risk: Results Interpretation <0.5 ng/ml A PCT level below 0.5 ng/ml on the first day of ICU admission is associated with a low risk for progression to severe sepsis and/or septic shock. > 2.0 ng/mL A PCT level above 2.0 ng/mL on the first day of ICU admission is associated with a high risk for progression to severe sepsis and/or septic shock. Note: Concentrations < 0.5 ng/mL do not exclude an infection, on account of localized infections (without systemic signs) which can be associated with such low concentrations, or a systemic infection in its initial stages(< 6 hours). Furthermore, increased procalcitonin can occur without infection. PCT concentrations between 0.5 and 2.0 ng/mL should be interpreted taking into account the patient's history. It is recommended to retest PCT within 6-24 hours if any concentrations < 2 ng/mL are obtained. Bruce Rothman [facility] SENDOUT [place]NAL ZIP [phone] [place] [address] * SCAN-CARDIAC STRIP (06/21/2023 9:17 AM MACHINE INSPECTOR) Scanner OTHER * XR CHEST 1 VIEW PORTABLE (06/21/2023 5:51 AM MACHINE INSPECTOR) Anatomical Region Laterality Modality HEART, THORAX, CHEST Computed Ra diography 06/21/2023 5:51 AM MACHINE INSPECTOR Impressions 06/21/2023 7:05 AM MACHINE INSPECTOR Vascular congestion with interstitial edema. Left basilar atelectasis/scarring. No pleural effusion. Normal heart size. Narrative 06/21/2023 7:05 AM MACHINE INSPECTOR For Patients: As a result of the Cures Act, medical imaging exams and procedure reports are released immediately into your electronic medical record. You may view this report before your referring provider. If you have questions, please contact your health care provider. EXAM: XR CHEST 1 VIEW PORTABLE LOCATION: [facility] MEDICAL [facility]AG[facility] DATE: 06/21/2023 INDICATION: Shortness of breath COMPARISON: None. Procedure Note Juan Bhatia MD - 06/21/2023 For Patients: As a result of the Cures Act, medical imagingexams and procedure reports are released immediately into your electronicmedical record. You may view this report before your referring provider.If you have questions, please contact your health care provider. EXAM: XR CHEST 1 VIEW PORTABLE LOCATION: [facility] DATE: 06/21/2023 INDICATION: Shortness of breath COMPARISON: None. IMPRESSION: Vascular congestion with interstitial edema. Left basilaratelectasis/scarring. No pleural effusion. Normal heart size. Justin Almendarez MD GENERAL IMAGIN G * (ABNORMAL) PLATELET COUNT (06/21/2023 5:18 AM MACHINE INSPECTOR) PLATELET COUNT 102(L) 140 - 440 thou/cu mm 06/21/2023 6:12 AM MACHINE INSPECTOR [facility] MPV 9.0 6.5 - 11.0 fL 06/21/2023 6:12 AM MACHINE INSPECTOR [facility] Blood BLOOD SPECIMEN / Unknown Venipuncture / Unknown 06/21/2023 5:18 AM MACHINE INSPECTOR 06/21/2023 5:41 AM MACHINE INSPECTOR Justin Almendarez MD HEMATOLOGY [facility] SENDOUT INTERNAL ZIP [phone] [place] [address] * (ABNORMAL) WHITE BLOOD COUNT (06/21/2023 5:18 AM MACHINE INSPECTOR) WHITE BLOOD COUNT 16.4(H) 4.5 - 11.0 thou/cu mm 06/21/2023 8:44 AM MACHINE INSPECTOR [facility] NRBC 0.0 % 06/21/2023 8:44 AM MACHINE INSPECTOR [facility] ABS NRBC 0.0 thou /cu mm 06/21/2023 8:44 AM MACHINE INSPECTOR [facility] Blood BLOOD SPECIMEN / Unknown Venipuncture / Unknown 06/21/2023 5:18 AM MACHINE INSPECTOR 06/21/2023 5:41 AM MACHINE INSPECTOR Bruce APONTE HEMATOLOGY Performing Organization Address City/[facility]/ZIP Co de Phone Number [facility] SENDOUT INTERNAL ZIP [phone] [place] [phone] * (ABNORMAL) HEMOGLOBIN (06/21/2023 5:18 AM MACHINE INSPECTOR) HEMOGLOBIN 12.5(L) 13.5 - 17.5 g/dL 06/21/2023 6:12 AM MACHINE INSPECTOR [facility] MCV 93 80 - 100 fL 06/21/2023 6:12 AM MACHINE INSPECTOR [facility] Blood BLOOD SPECIMEN / Unknown Venipuncture / Unknown 06/21/2023 5:18 AM MACHINE INSPECTOR 06/21/2023 5:41 AM MACHINE INSPECTOR Justin Almendarez MD HEMATOLOGY [facility] SENDOUT INTERNAL ZIP [phone] [place] [phone] * SODIUM (06/21/2023 5:18 AM MACHINE INSPECTOR) SODIUM 141 136 - 145 mmol/L 06/21/2023 8:53 AM MACHINE INSPECTOR [facility] Blood BLOOD SPECIMEN / Unknown Venipuncture / Unknown 06/21/2023 5:18 AM MACHINE INSPECTOR 06/21/2023 5:41 AM MACHINE INSPECTOR Bruce APONTE CHEMISTRY [facility] SENDOUT INTERNAL ZIP [address] [place] [phone] * POTASSIUM (06/21/2023 5:18 AM MACHINE INSPECTOR) POTASSIUM 3.9 3.5 - 5.1 mmol/L 06/21/2023 8:53 AM MACHINE INSPECTOR [facility] Blood BLOOD SPECIMEN / Unknown Venipuncture / Unknown 06/21/2023 5:18 AM MACHINE INSPECTOR 06/21/2023 5:41 AM MACHINE INSPECTOR Bruce APONTE CHEMISTRY Performing Organization Address [facility]/ZIP Co de Phone Number [facility] SENDOUT INTERNAL ZIP [phone] [place] [address] * CREATININE (06/21/2023 5:18 AM MACHINE INSPECTOR) eGFR >90 >90 mL/min/1.7 3m2 06/21/2023 6:15 AM MACHINE INSPECTOR [facility] Comment:As of 2021, eG FR is calculated by the CKD-EPI creatinine equation without race adjustment. ??eGFR can be influenced by muscle mass, exercise, and diet. ??The reported eGFR is an estimation only and is only applicable if the renal function is stable. CREATININE 0.93 0.70 - 1.20 mg/dL 06/21/2023 6:15 AM MACHINE INSPECTOR [facility] Blood BLOOD SPECIMEN / Unknown Venipuncture / Unknown 06/21/2023 5:18 AM MACHINE INSPECTOR 06/21/2023 5:41 AM MACHINE INSPECTOR Justin Almendarez MD CHEMISTRY [facility] SENDOUT INTERNAL ZIP [phone] [place] [address] * (ABNORMAL) PRO-BNP (06/21/2023 5:18 AM MACHINE INSPECTOR) PRO-BNP 395(H) <125 pg/mL 06/21/2023 6:17 AM MACHINE INSPECTOR [facility] Blood BLOOD SPECIMEN / Unknown Venipuncture / Unknown 06/21/2023 5:18 AM MACHINE INSPECTOR 06/21/2023 5:41 AM MACHINE INSPECTOR Narrative [facility] - 06/21/2023 6:17 AM MACHINE INSPECTOR The following cut-points have been suggested for the use of proBNP for the diagnostic evaluation of heart failure (HF) in patient with acute dyspnea. Patients with eGFR >= 60 Diagnosis (rule in CHF) ? <50 Years Old ?450 pg/mL 50 - 75 Years Old ?900 pg/mL >75 Years Old ? 1800 pg/mL Exclusion (rule out CHF) Age Independent ?300 pg/mL A cutoff of 1200 pg/mL for patients with an eGFR <60 yields a diagnostic sensitivity of 89% and specificity of 72% for acute congestive heart failure. ? Justin Almendarez MD SEND OUTS Performing Organization Address [facility] Co de Phone Number [facility] SENDOUT INTERNAL ZIP [phone] [place] [address] * MAGNESIUM (06/21/2023 5:18 AM MACHINE INSPECTOR) Pathologist [facility] MAGNESIUM 1.6 1.6 - 2.4 mg/dL 06/21/2023 10:12 AM MACHINE INSPECTOR [facility] Blood BLOOD SPECIMEN / Unknown Venipuncture / Unknown 06/21/2023 5:18 AM MACHINE INSPECTOR 06/21/2023 5:41 AM MACHINE INSPECTOR Bruce APONTE CHEMISTRY Performing Organization Address [facility] de Phone Number [facility] SENDOUT INTERNAL ZIP [phone] [place] [address] * (ABNORMAL) PROTIME-INR (06/21/2023 2:51 AM MACHINE INSPECTOR) INR 1.4(H) <1.3 06/21/2023 3:24 AM MACHINE INSPECTOR [facility] PROTIME 15.3(H) 10.3 - 12.3 sec 06/21/2023 3:24 AM [facility] Blood BLOOD SPECIMEN / Unknown Venipuncture / Unknown 06/21/2023 2:51 AM MACHINE INSPECTOR 06/21/2023 3:01 AM MACHINE INSPECTOR Narrative [facility] - 06/21/2023 3:24 AM MACHINE INSPECTOR ?Therapeutic Range 2.0-3.0 for most anticoagulated patients 2.5-3.5 or 4.0 for high risk patients The INR is only used for patients on stable oral anticoagulant therapy. It makes no significant contribution to the diagnosis or treatment of patients whose Protime is prolonged for other reasons. INR results are increased when heparin levels exceed 1.0 U/mL, which corresponds to an aPTT >125 seconds if the patient is on UFH. Justin Almendarez MD HEMATOLOGY [facility] SENDOUT INTERNAL ZIP [phone] [place] [address] * SCAN-CARDIAC STRIP (06/20/2023 11:59 PM MACHINE INSPECTOR) Scanner OTHER from Last 3 Months Advance Directives Latest Code Status on File Code Status Date Activated Date Inactivated Comments DNR 06/21/2023 1:43 AM 06/27/2023 6:20 PM Question Answer Comments Code Status Discussion: Reviewed Preferences Code Status History Code Status Date Activated Date Inactivated Comments Full Code 06/21/2023 12:05 AM 06/21/2023 1:43 AM Question Answer Comments Code Status Discussion: Reviewed Preferences Care Teams [employer] Relationship Specialty Start Date End Date [place] [address] PCP - General Physician Physician Relations Manager 06/23/23 [place] [id number] [address] [address] 06/26/23
--- NOTE | 2023-07-06 11:58 | ED_ITS ---
HPI - General Adult General Chief complaint: Unspecified Complaint, Adult Stated complaint: Wellness check/possible shortness of breath Time Seen by Provider: 07/06/23 11:38 History of Present Illness HPI narrative: [facility]. she states that the pt has a PICC line for antibiotics for post kidney infection. home care today noted that his PICC line had been dislodged. she also reports that home conditions are poor. upon arrival, pt has no complaints. states he needs to get home because his water heater is leaking. EMS report that pt needs PICC line removed and replaced for continued antibiotics. home is dirty. 62-year-old man presenting to the emergency department via EMS with concern of PICC line being dislodged and unusable. Mr. Klein was admitted on 06/20 for a week discharged on June 27 of this year with a diagnosis of septic shock secondary to urinary tract infection. He had staph bacteremia and obstructive uropathy due to a 6 mm stone in the right ureteral vesicular junction diagnosed at this facility. Also did have an episode during hospitalization of supraventricular tachycardia. Underlying history of thrombocytopenia cirrhosis. History of alcohol abuse. When I asked him about complaints today the only t peewee he says is he feels tired. He is not clear that this is actual weakness just tired and we keep bothering him keeping him awake. Otherwise does have longstanding history says of low back pain. It looks as though there was no lithotripsy done but did have cystoscopy and right ureteral stent placement. Was to be maintained on 4 weeks of antibiotics via PICC line. Mr. De La Cruz says he has been giving his antibiotics but only missed 2 doses since discharge and ?made it up?. Notes from home care who visited today noting clotted and dirty home environment indicated that he is not actually taking his antibiotics. He is to be receiving t.i.d. cefazolin. Denies chills or fever. During hospitalization for concern of dyspnea on exertion for some months had an echocardiogram showing normal EF and no regional wall motion abnormalities. Has indicated sincere desire to return home. Related Data Home Medications Medication Instructions Recorded Confirmed No Known Home Medications 08/12/22 08/12/22 Previous Rx's Medication Instructions Recorded acetaminophen 325 mg tablet 650 mg (2 x 325 mg) PO TID PRN 08/13/22 #100 tabs escitalopram oxalate 10 mg tablet 10 mg PO DAILY #30 tabs 08/13/22 lactulose 20 gram/30 mL oral 20 g (30 mL) PO DAILY #480 mL 08/13/22 solution omeprazole 20 mg capsule,delayed 20 mg PO DAILY@0700 #30 caps 08/13/22 release Allergies Allergy/AdvReac Type Severity Reaction Status Date / Time No Known Drug Allergies Allergy Verified 06/20/23 06:52 Review of Systems Status of ROS: Reports: 6 or more systems reviewed and unremarkable except as noted in History and below [facility] Medical History Gastroesophageal reflux ?K21.9 - Gastro-esophageal reflux disease without esophagitis (ICD-10) Left forearm fracture ?S52.92XA - Unspecified fracture of left forearm, initial encounter for closed fracture (ICD-10) Financial difficulties ?Z59.9 - Problem related to housing and economic circumstances, unspecified (ICD-10) Social isolation ?Z60.4 - Social exclusion and rejection (ICD-10) Esophageal abnormality ?K22.9 - Disease of esophagus, unspecified (ICD-10) Chest pain ?R07.9 - Chest pain, unspecified (ICD-10) Depression ?F32.A - Depression, unspecified (ICD-10) Low back pain ?M54.50 - Low back pain, unspecified (ICD-10) Left knee pain ?M25.562 - Pain in left knee (ICD-10) Hepatitis C ?B19.20 - Unspecified viral hepatitis C without hepatic coma (ICD-10) Exertional dyspnea ?R06.09 - Other forms of dyspnea (ICD-10) Adult failure to thrive ?R62.7 - Adult failure to thrive (ICD-10) Cholelithiasis ?K80.20 - Calculus of gallbladder without cholecystitis without obstruction (ICD-10) Abdominal pain ?R10.9 - Unspecified abdominal pain (ICD-10) Alcoholic cirrhosis ?K70.30 - Alcoholic cirrhosis of liver without ascites (ICD-10) Surgical History History of failed repair of rotator cuff ?Z98.890 - Other specified postprocedural states (ICD-10) Social History Narrative: He lives alone in [facility]. His girlfriend has left him. He has no contact with his daughter. His sister, Noemy, lives in [place] but is not in close contact with him. He indicates she would be healthcare power of commonwealth attorney. Code status is DNR. He is not working. He gets financial assistance from the [facility]. He has considered getting on disability. He does not have a personal physician. Remote history of being a patient at [facility] Highest level of school completed/degree received: high school graduate Smoking Status: Former smoker Do you use any of these nicotine containing products: None Second hand tobacco smoke exposure: No How often do you have a drink containing alcohol: never How often do you have six or more drinks on one occasion: Never AUDIT-C Alcohol total score: 0 Non-prescribed substance use: denies use Caffeine: No service: No Exam Narrative: Exam Narrative: Eyes generally closed. When open though I do not see any scleral icterus. Looks like little corneal scarring in the left eye. Pupils are equal. Is a little tachypneic and a little labored in breathing. Lungs with some bilateral crepitus in the lower lung murcia. Heart is distant. I think it is regular rate and rhythm. Abdomen is overweight soft. He has a noninflamed umbilical hernia small and small spots of bruising over his a belly. There is some bruising at the left upper arm as well presumably palm related to the PICC line. PICC line looks to be dislodged by a little over an inch. Will try to clarify this though. No swelling about the site otherwise. Puncture wound noticeable a t the dorsum of left hand near the base of the thumb. IV has been placed at the right arm now. Abdomen is soft and nontender otherwise. No fluid wave. I can not palpate for HSM. Extremities with mild erythema and 2+ pitting edema bilaterally. Mild erythema more so on the right. Not exactly cellulitic. Generally skin does feel warm. Oropharynx is edentulous. Sticky. Const: Vital Signs, click to edit/add: Vital Signs - 24 hr 07/06/23 11:43 07/06/23 11:44 07/06/23 11:45 Temperature 97.9 F Pulse Rate 90 89 Pulse Rate [Right Pulse Oximeter] 82 Respiratory Rate 18 Blood Pressure 118/73 Blood Pressure [Ri ght Upper Arm] 118/73 Pulse Oximetry 92 92 92 Oxygen Delivery Ma thod Room Air 07/06/23 11:45 07/06/23 12:02 07/06/23 12:13 Temperature Pulse Rate 84 94 Pulse Rate [Right Pulse Oximeter] Respiratory Rate Blood Pressure 118/77 Blood Pressure [Ri ght Upper Arm] Pulse Oximetry 92 92 Oxygen Delivery Ma thod 07/06/23 12:15 07/06/23 12:30 07/06/23 12:31 Temperature Pulse Rate 83 82 81 Pulse Rate [Right Pulse Oximeter] Respiratory Rate Blood Pressure 118/76 Blood Pressure [Ri ght Upper Arm] Pulse Oximetry 92 92 92 Oxygen Delivery Ma thod 07/06/23 12:32 07/06/23 12:45 07/06/23 13:00 Temperature Pulse Rate 87 81 85 Pulse Rate [Right Pulse Oximeter] Respiratory Rate Blood Pressure Blood Pressure [Ri ght Upper Arm] Pulse Oximetry 91 91 [facility] 07/[facility] 13:01 07/06/23 13:30 07/06/23 14:00 Temperature Pulse Rate 85 86 93 Pulse Rate [Right Pulse Oximeter] Respiratory Rate Blood Pressure 119/71 Blood Pressure [Ri ght Upper Arm] Pulse Oximetry 94 93 [facility] 07/06/23 14:02 07/06/23 14:30 07/06/23 16:13 Temperature Pulse Rate 85 85 Pulse Rate [Right Pulse Oximeter] Respiratory Rate Blood Pressure 123/73 Blood Pressure [Ri ght Upper Arm] 143/93 H Pulse Oximetry 95 [facility] 07/06/23 16:23 07/06/23 16:26 07/06/23 17:17 Temperature Pulse Rate 83 94 Pulse Rate [Right Pulse Oximeter] 87 Respiratory Rate 20 Blood Pressure Blood Pressure [Ri ght Upper Arm] Pulse Oximetry 94 94 [facility] 07/06/23 17:22 07/06/23 17:30 07/06/23 17:33 Temperature Pulse Rate 91 94 92 Pulse Rate [Right Pulse Oximeter] Respiratory Rate Blood Pressure 118/77 117/75 Blood Pressure [Ri ght Upper Arm] Pulse Oximetry 92 91 [facility] 07/06/23 17:34 07/06/23 18:00 07/06/23 18:09 Temperature Pulse Rate 93 93 88 Pulse Rate [Right Pulse Oximeter] Respiratory Rate Blood Pressure 135/74 Blood Pressure [Ri ght Upper Arm] Pulse Oximetry 93 88 93 Oxygen Delivery Me thod Documenting provider has reviewed patient's vital signs: yes Course Vital Signs Vital signs: Initial Vital Signs Pulse Rate 90 07/06/23 11:43 Blood Pressure 118/73 07/06/23 11:43 Blood Pressure Mean 88 07/06/23 11:43 Pulse Oximetry 92 07/06/23 11:43 Vital Signs Pulse Rate 90 07/06/23 11:43 Blood Pressure 118/73 07/06/23 11:43 Pulse Oximetry 92 07/06/23 11:43 Temperature 97.9 F 07/06/23 11:45 Pulse Rate 88 07/06/23 18:09 Respiratory Rate 20 07/06/23 16:26 Blood Pressure 135/74 07/06/23 18:09 Pulse Oximetry 93 07/06/23 18:09 Oxygen Delivery Method Room Air 07/06/23 16:26 Medications Administered Medications: Discontinued Medications Generic Name Dose Route Start Last Admin Trade Name Freq PRN Reason Stop Dose Admin Cefazolin Sodium 2 gm 07/06/23 13:49 07/06/23 14:06 Cefazolin 2 Gm Inj IVP 07/06/23 13:50 Not Given ONCE ONE Sodium Chloride 1,000 mls @ 1,000 mls/hr 07/06/23 12:30 07/06/23 14:06 0.9 % Sodium Chloride 1000 Ml IV 07/06/23 13:29 Infused .Q1H ONE Infusion Cefazolin Sodium 2 gm/ Sodium 100 mls @ 200 mls/hr 07/06/23 13:55 07/06/23 15:00 Chloride IVPB 07/06/23 14:24 Infused ONCE ONE Infusion Ceftriaxone Sodium 1 gm/ 100 mls @ 200 mls/hr 07/06/23 17:17 07/06/23 18:06 Sodium Chloride IVPB 07/06/23 17:18 Infused ONCE ONE Infusion Medical Decision Making MDM Narrative Medical decision making narrative: Need to clarify to what degree this PICC line came out. Maybe a relevant if it is not functional. The might still be usable. He seems particularly weak in transition and in general where I think that he would be hard pressed to take care of himself at home. It sounds as though he is going to be insistent to return home. Giving some IV fluids. Will check blood cultures. I do have urinalysis back at this time which is still looks quite dirty. Pending lithotripsy following completion of 4 weeks of antibiotics. He says he has been taking them but there is some question as to whether not that is true. Home health has discharged/fired him. Labs overall are markedly improved. Normal white count. Very good renal function at least considering BUN creatinine. Looking again at PICC line, it really looks like it has only been dislodged about an inch. Chest x-ray confirms good placement. No pneumonia on my read. I think we could use this PICC line if needed. Urine tox screen returns meth positive along with THC. I discussed this with Mr. Klein. He does admit to using meth for what sounds like 36-48 hours ago. Somebody brought some in some glass he says vaguely. He is adamant that he was not using his PICC line. ?Why would I do that? Was dosed with Ancef for discharge recommendations by ID. Is adamant that he is returning home and will not be admitted; admission would be partly an effort to coordinate cares. Does not have anybody that can transport him to the infusion center or even back to the ER regularly for IV treatments.. Have involved social work to consider other possibilities in care. Will not be able to get home cares restarted likely for even days following this holiday weekend; it is Sunday evening. He is vulnerable but not holdable. Maintaining IV access in Mr. Klein I think is not an ideal thing to do anyway as using substances as above. Furthermore Hepatitis C history suggests IV drug use history. He says he is no longer using or drinking. Had contemplated injectab le Rocephin as well given sensitivities reviewed in urine culture. This is consistent with bacteremia as described in records from [facility]. Cefdinir orally might be a good option but not available in [facility] pharmacy here closed and no transport available elsewhere for Mr. Klein and I would like him to have everything that he needs in hand for proper coverage. Another option would be levofloxacin but also not available in our [facility]. Ciprofloxacin is available, unfortunately dose twice a day. Will need prolonged course. I feel as though hands are tied somewhat and has completed 9 days IV treatment, supposedly? Writing for 500 b.i.d. ciprofloxacin for 21 days. This will be given to him on departure. Prior to departure has been given another g of Rocephin for 24 hours of coverage. See patient discharge plan Medical Records Medical records reviewed: Yes I reviewed the patient's medical records Lab Data Lab results reviewed: Yes I reviewed the patient's lab results Labs: Lab Results 07/06/23 07/06/23 07/06/23 Range/Units 12:10 12:12 12:25 WBC 5.93 (4.50-11.00) K/uL RBC 3.74 L (4.30-5.90) m/uL Hgb 11.6 L (13.5-17.5) gm/dL Hct 35.5 L (37.0-53.0) % MCV 95 (80-100) fL MCH 31 (26-34) pg MCHC 33 (32-36) gm/dL RDW Coeff of Cale 16.5 H (11.5-15.5) % Plt Count 163 (140-440) K/uL Neut % (Auto) 57.9 (42.0-72.0) % Lymph % (Auto) 25.5 (20-44) % Posey % (Auto) 12.0 H (0.0-11.0) % Eos % (Auto) 3.4 (0.0-7.0) % Baso % (Auto) 1.0 (0.0-3.0) % Neut # (Auto) 3.44 (1.7-7.0) K/uL Lymph # (Auto) 1.51 (0.90-2.90) K/uL Posey # (Auto) 0.70 (0.00-0.90) K/UL Eos # (Auto) 0.20 (0.00-0.50) K/uL Baso # (Auto) 0.06 (0.00-0.30) K/uL Abs Immat Gran (auto) 0.01 (0.00-0.30) K/uL Imm/Tot Granulo (auto) 0.2 % Sodium 140 (135-149) mmol/L Potassium 4.2 (3.6-5.1) mmol/L Chloride 110 (96-114) mmol/L Carbon Dioxide 23 (20-32) mmol/L Anion Gap 7 (7-15) mEq/L BUN 20 (7-30) mg/dL Creatinine 0.5 (0.5-1.5) mg/dL Estimated Creat Clear 74.10 Estimated GFR 115 ml/min Glucose 138 H (60-115) mg/dL Lactate 1.8 (0.5-1.9) mmol/L Calcium 8.0 L (8.4-10.6) mg/dL Magnesium 1.9 (1.5-2.6) mg/dL Total Bilirubin 0.5 (0.1-1.5) mg/dL Direct Bilirubin 0.2 (0.0-0.5) mg/dL AST 56 H (12-35) U/L ALT 32 (4-50) U/L Alkaline Phosphatase 93 (40-150) U/L C-Reactive Protein 1.3 H (0.5-1.0) mg/dL Total Protein 6.9 (6.0-8.3) g/dL Albumin 2.5 L (3.3-5.0) g/dL Urine Color Yellow (Yellow) Urine Appearance Cloudy A (Clear) Urine pH 6.5 (5.0-8.5) Ur Specific [place] 1.020 (1.000-1.030) Urine Protein 2+ A (Negative) Urine Glucose (UA) Negative (Negative) Urine Ketones Negative (Negative) Urine Blood 3+ A (Negative) Urine Nitrite Negative (Negative) Urine Bilirubin Negative (Negative) Urine Urobilinogen 1.0 (0.2-1.0) Ur Leukocyte Esterase 2+ A (Negative) Urine RBC >100 A (0-2) Urine WBC 50-100 A (0-5) Ur Squamous Epith Cells None (None-Few) Urine Bacteria Few A (None) Urine Opiates Screen Negative (Negative) Ur Oxycodone Screen Negative (Negative) Urine Methadone Screen Negative (Negative) Ur Propoxyphene Screen Not Reportable Ur Barbiturates Screen Negative (Negative) U Tricyclic Antidepress Negative (Negative) Ur Phencyclidine Scrn Negative (Negative) Ur Amphetamines Screen POSITIVE A (Negative) U Methamphetamines Scrn POSITIVE A (Negative) U Benzodiazepines Scrn Negative (Negative) Urine Cocaine Screen Negative (Negative) U Marijuana (THC) Screen POSITIVE A (Negative) Ur Drug Screen Comment See Note Ethyl Alcohol < 0.01 L (0.01-0.03) % Discharge Plan Discharge Clinical Impression: Urinary tract infection, Bacteremia Patient Disposition: Home, Self-Care Condition: Stable Additional Instructions: There are quite a few challenges to your care tonight and going forward. Considering this we are discontinuing your IV treatments. I understand you are clearly wanting to return home. It is imperative that you take this prescription as dispensed. Follow-up with discharge instructions per [facility]. Return/be seen for increasing weakness, worsening shortness of breath, fever. Prescriptions: No Action No Known Home Medications acetaminophen 325 mg Tablet 650 mg PO TID PRNQty: 100 0RF escitalopram oxalate 10 mg Tablet 10 mg PO DAILY Qty: 30 0RF lactulose 20 gram/30 mL Solution 20 g PO DAILY Qty: 480 0RF omeprazole 20 mg Capsule,Delayed Release(Dr/Ec) 20 mg PO DAILY@0700 Qty: 30 0RF Follow Up/Referrals: Provider,Not a Local [Primary Care Provider] - Stand Alone Forms: Basis[employer] Info Instructions
--- NOTE | 2023-07-06 12:16 | ED.NURSE ---
Pt independently stood at the bedside and used urinal to void. Pt able to get back in bed independently as well. UA sent to lab.
[2023-07-06 12:19] LABS: Appearance Urine Cloudy (Clear); Bilirubin Urine Negative (Negative); Blood Urine 3+ (Negative); Color Urine Yellow (Yellow); Glucose Urine Negative (Negative); Ketones Urine Negative (Negative); Leukocyte Esterase Urine 2+ (Negative); Nitrite Urine Negative (Negative); Protein Urine 2+ (Negative); pH Urine 6.5 (5.0-8.5)
--- OUTSIDE RECORDS SUMMARY | 2023-07-06 12:26 | XMS_ITS | Clinical Summary ---
Author Name Unknown Organization [facility] s & [facility] Address [place], [place] [address] Care Team Providers Care Rotary Driller Helper Name Role Phone Nat Mccoy Primary Care Provider + [phone] [facility] Care, Ag Unavailable [phone] Allergies No known active allergies Medications Medication [...] Department Care Team Description 07/05/2023 11:00 AM HYDRAULICS TEACHER Home Care Visit [facility] [address] [facility] [place] [address] Puja Hirsch, RN SN - OASIS DISCHARGE 07/05/2023 Home Care Visit [facility] [address] [place] [address] Vida Felder RN CARE COORDINATION 07/04/2023 9:00 AM HYDRAULICS TEACHER Home Care Visit [facility] [address] [facility] [place] [address] Drew Pena, RN SN - MISSED VISIT 07/03/2023 Home Care Visit [facility] [address] [place] [address], [place] [address] Lena Ron, GOVERNMENT TEACHER CARE COORDINATION 07/02/2023 Home Care Visit [facility] [address] [place] [address] Carl Haddad, PT CARE COORDINATION 06/28/2023 10:00 AM HYDRAULICS TEACHER Home Care Visit [facility] [address] [place] [address], [place] [address] Drew Pena, RN SN IV - START OF CARE 06/28/2023 Plan of Care Documentation [address] [address] 06/28/2023 Patient Outreach [facility] [address] [place] [address] Mary Mayer RN Primary RN Care Management; Hospital F/U (LACE 74) 06/26/2023 Travel 06/21/2023 3:40 PM HYDRAULICS TEACHER Anesthesia Event [address] [address] Dave Peterson CRNA Dahl, Ashley Rose Dragavon, MD 06/21/2023 3:10 PM HYDRAULICS TEACHER - 06/21/2023 4:10 PM HYDRAULICS TEACHER Surgery [address] [address] Chao Villagomez MD CYSTOSCOPY. RIGHT PLACEMENT OF URETERAL STENT, RIGHT RETROGRADES PYELOGRAM 06/21/2023 Travel 06/20/2023 11:37 PM HYDRAULICS TEACHER - 06/27/2023 3:50 PM HYDRAULICS TEACHER Hospital Encounter [address] [address] s, U Hospitalist [facility] [place] [place] Justin Almendarez MD Kafle, Puskar, MBBS Kroschel, [...] Comments Blood Pressure 130/62 07/05/2023 11:15 AM HYDRAULICS TEACHER Pulse 94 07/05/2023 11:15 AM HYDRAULICS TEACHER Temperature 36.9 ??C (98.5 ??F) 07/05/2023 1 1:15 AM HYDRAULICS TEACHER Respiratory Rate 22 07/05/2023 11:1 5 AM HYDRAULICS TEACHER Oxygen Saturation 94% 07/05/2023 11: 15 AM HYDRAULICS TEACHER RA Inhaled Oxygen Concentration - - Weight 106.3 kg (234 lb 6.4 oz) 06/24/2023 3:46 AM HYDRAULICS TEACHER Height 172.7 cm (5' 8) 06/20/2023 11:4 5 PM HYDRAULICS TEACHER Body Mass Index 35.64 06/20/2023 11:45 PM HYDRAULICS TEACHER Plan of Treatment Upcoming Encounters Date Type Department Care Team (Late st Contact Info) Description 07/26/2023 2:10 PM HYDRAULICS TEACHER Phone Office Visit [facility] Medical Specialties [address] [facility] [address] [place] [address] Cuba Escudero MD [address] [place] [address] [address] [place] [address] Health Maintenance Due Date Last Done Comments [...] 08/12, 08/12/2012 Medical Devices Implanted Type Area Channel Marketing Manager Device Identifier Shelf Expiration Date Model / Serial / Lot Stent Uret [id number] Percuflex [employer] - [id number] Implanted:Qty: 1 on 06/21/2023 by Chao Villagomez MD at [facility] Right: [employer] [facility] Urology 02/09/2026 [id number] / / [id number] Procedures Procedure Name Priority Date/Time Associated Diagnosis Comments SCAN-CARDIAC STRIP 06/27/2023 7: 43 AM HYDRAULICS TEACHER CBC WITH AUTO DIFFERENTIAL Early AM 06/27/2023 6:18 AM HYDRAULICS TEACHER CBC WITH AUTO DIFFERENTIAL Early AM 06/27/2023 6:18 AM HYDRAULICS TEACHER SCAN-CARDIAC STRIP 06/27/2023 3: 28 AM HYDRAULICS TEACHER XR CHEST 1 VIEW PICC OR CVAD PLACEMENT PORTABLE STAT 06/26/2023 6:44 PM HYDRAULICS TEACHER SCAN-CARDIAC STRIP 06/26/2023 3: 09 PM HYDRAULICS TEACHER C-REACTIVE PROTEIN Timed 06/26/2023 1: 30 PM HYDRAULICS TEACHER BASIC METABOLIC PANEL SID 06/26/2023 1:30 PM HYDRAULICS TEACHER SCAN-CARDIAC STRIP 06/26/2023 10 :56 AM HYDRAULICS TEACHER SCAN-CARDIAC STRIP 06/25/2023 11 :00 PM HYDRAULICS TEACHER SCAN-CARDIAC STRIP 06/25/2023 5: 43 PM HYDRAULICS TEACHER SCAN-CARDIAC STRIP 06/25/2023 7: 05 AM HYDRAULICS TEACHER SCAN-CARDIAC STRIP 06/25/2023 12 :06 AM HYDRAULICS TEACHER SCAN-CARDIAC STRIP 06/24/2023 8: 00 PM HYDRAULICS TEACHER SCAN-CARDIAC STRIP 06/24/2023 4: 42 PM HYDRAULICS TEACHER SCAN-CARDIAC STRIP 06/23/2023 3: 23 PM HYDRAULICS TEACHER SCAN-CARDIAC STRIP 06/23/2023 8: 00 AM HYDRAULICS TEACHER SCAN-CARDIAC STRIP 06/23/2023 12 :29 AM HYDRAULICS TEACHER GLUCOSE METER Timed 06/22/2023 9:10 PM HYDRAULICS TEACHER SCAN-CARDIAC STRIP 06/22/2023 3: 05 PM HYDRAULICS TEACHER C-REACTIVE PROTEIN Timed 06/22/2023 1: 30 PM HYDRAULICS TEACHER BLOOD CULTURE Today 06/22/2023 1:30 PM HYDRAULICS TEACHER BLOOD CULTURE Today 06/22/2023 1:22 PM HYDRAULICS TEACHER GLUCOSE METER Timed 06/22/2023 11:57 AM HYDRAULICS TEACHER SCAN CORRESP-IMAGING 06/22/2023 9:43 AM HYDRAULICS TEACHER SCAN-CARDIAC STRIP 06/22/2023 8: 00 AM HYDRAULICS TEACHER GLUCOSE METER Timed 06/22/2023 6:12 AM HYDRAULICS TEACHER PLATELET ESTIMATE Timed 06/22/2023 5:1 8 AM HYDRAULICS TEACHER RED CELL MORPHOLOGY Timed 06/22/2023 5 :18 AM HYDRAULICS TEACHER CBC W PLT NO DIFF Early AM 06/22/2023 5:1 8 AM HYDRAULICS TEACHER GLUCOSE METER Timed 06/22/2023 12:14 AM HYDRAULICS TEACHER SCAN-CARDIAC STRIP 06/21/2023 11 :35 PM HYDRAULICS TEACHER SCAN-CARDIAC STRIP 06/21/2023 11 :30 PM HYDRAULICS TEACHER GLUCOSE METER Timed 06/21/2023 6:50 PM HYDRAULICS TEACHER URINE CULTURE Today 06/21/2023 5:44 PM HYDRAULICS TEACHER XR RETROGRADE PYELOGRAM W/WO KUB Routine 06/21/2023 4:29 PM HYDRAULICS TEACHER CYSTOSCOPY PLACEMENT URETERAL STENT RETROGRADES 06/21/2023 3:30 PM HYDRAULICS TEACHER Right ureteral stone Case Notes NPO SCAN CORRESP-IMAGING 06/21/2023 12:30 PM HYDRAULICS TEACHER ECHO TTE COMPLETE W CONTRAST Routine 06/21/2023 12:15 PM HYDRAULICS TEACHER GLUCOSE METER Timed 06/21/2023 11:55 AM HYDRAULICS TEACHER SCAN-CARDIAC STRIP 06/21/2023 9: 45 AM HYDRAULICS TEACHER BLOOD CULTURE Today 06/21/2023 9:28 AM HYDRAULICS TEACHER BLOOD CULTURE MULTIPLEX PCR Timed 06/21/2023 9:20 AM HYDRAULICS TEACHER BLOOD CULTURE Today 06/21/2023 9:20 AM HYDRAULICS TEACHER LACTATE VENOUS STAT 06/21/2023 9:20 AM HYDRAULICS TEACHER PROCALCITONIN STAT 06/21/2023 9:20 AM HYDRAULICS TEACHER SCAN-CARDIAC STRIP 06/21/2023 9: 17 AM HYDRAULICS TEACHER GLUCOSE METER Timed 06/21/2023 5:57 AM HYDRAULICS TEACHER XR CHEST 1 VIEW PORTABLE Routine 06/21/2023 5:51 AM HYDRAULICS TEACHER MAGNESIUM SID 06/21/2023 5:18 AM HYDRAULICS TEACHER POTASSIUM SID 06/21/2023 5:18 AM HYDRAULICS TEACHER SODIUM SID 06/21/2023 5:18 AM HYDRAULICS TEACHER WHITE BLOOD COUNT SID 06/21/2023 5:1 8 AM HYDRAULICS TEACHER PRO-BNP Today 06/21/2023 5:18 AM HYDRAULICS TEACHER CREATININE Today 06/21/2023 5:18 AM HYDRAULICS TEACHER PLATELET COUNT Today 06/21/2023 5:18 AM HYDRAULICS TEACHER HEMOGLOBIN Today 06/21/2023 5:18 AM HYDRAULICS TEACHER PROTIME-INR Today 06/21/2023 2:51 AM HYDRAULICS TEACHER GLUCOSE METER Timed 06/21/2023 12:44 AM HYDRAULICS TEACHER SCAN-CARDIAC STRIP 06/20/2023 11 :59 PM HYDRAULICS TEACHER from Last 3 Months Results * SCAN-CARDIAC STRIP (06/27/2023 7:43 AM HYDRAULICS TEACHER) Scanner OTHER * (ABNORMAL) CBC WITH AUTO DIFFERENTIAL (06/27/2023 6:18 AM HYDRAULICS TEACHER) WHITE BLOOD COUNT 9.0 4.5 - 11.0 thou/cu mm 06/27/2023 6:33 AM [facility] RED BLOOD COUNT 4.17(L) 4.30 - 5.90 mil/cu mm 06/27/2023 6:33 AM [facility] HEMOGLOBIN 12.6(L) 13.5 - 17.5 g/dL 06/27/2023 6:33 AM [facility] HEMATOCRIT 38.2 37.0 - 53.0 % 06/27/2023 6:33 AM [facility] MCV 92 80 - 100 fL 06/27/2023 6:33 AM [facility] MCH 30.2 26.0 - 34.0 pg 06/27/2023 6:33 AM [facility] MCHC 33.0 32.0 - 36.0 g/dL 06/27/2023 6:33 AM [facility] RDW 16.0(H) 11.5 - 15.5 % 06/27/2023 6:33 AM [facility] PLATELET COUNT 131(L) 140 - 440 thou/cu mm 06/27/2023 6:33 AM [facility] MPV 9.2 6.5 - 11.0 fL 06/27/2023 6:33 AM [facility] NRBC 0.0 % 06/27/2023 6:33 AM [facility] ABS NRBC 0.0 thou /cu mm 06/27/2023 6:33 AM [facility] % NEUT 59.7 % 06/27/2023 6:33 AM [facility] % LYMPH 26.4 % 06/27/2023 6:33 AM [facility] % MONO 8.7 % 06/27/2023 6:33 AM [facility] % EOS 3.4 % 06/27/2023 6:33 AM [facility] % BASO 0.9 % 06/27/2023 6:33 AM [facility] % IMMATURE GRAN (METAS,MYELOS,VA OS) 0.9 % 06/27/2023 6:33 AM [facility] ABSOLUTE NEUTROPHILS 5.4 1.7 - 7.0 thou/cu mm 06/27/2023 6:33 AM [facility] ABSOLUTE LYMPHOCYTES 2.4 0.9 - 2.9 thou/cu mm 06/27/2023 6:33 AM [facility] ABSOLUTE MONOCYTES 0.8 <0.9 thou/cu mm 06/27/2023 6:33 AM [facility] ABSOLUTE EOSINOPHILS 0.3 <0.5 thou/cu mm 06/27/2023 6:33 AM [facility] ABSOLUTE BASOPHILS 0.1 <0.3 thou/cu mm 06/27/2023 6:33 AM [facility] ABSOLUTE IMMATURE GRANULOCYTES(MET ,MYELOS,PROS) 0.1 <0.3 thou/cu mm 06/27/2023 6:33 AM [facility] Blood BLOOD SPECIMEN / Unknown Non-Lab Venipuncture / Unknown 06/27/2023 6:18 AM HYDRAULICS TEACHER 06/27/2023 6:27 AM [facility] Cuba Escudero MD HEMATOLOGY [facility] SENDOUT INTERNAL ZIP [phone] [place] [address] * SCAN-CARDIAC STRIP (06/27/2023 3:28 AM HYDRAULICS TEACHER) Scanner OTHER * XR Chest PICC Line Placement Portable (06/26/2023 6:44 PM HYDRAULICS TEACHER) Anatomical Region Laterality Modality HEART, THORAX, CHEST Computed Ra diography 06/26/2023 6:44 PM HYDRAULICS TEACHER Impressions 06/26/2023 10:06 PM HYDRAULICS TEACHER Left PICC with tip in the SVC in good location. Mild bibasilar infiltrates. Degenerative changes in the right shoulder. Narrative 06/26/2023 10:06 PM HYDRAULICS TEACHER For Patients: As a result of the Cures Act, medical imaging exams and procedure reports are released immediately into your electronic medical record. You may view this report before your referring provider. If you have questions, please contact your health care provider. EXAM: XR CHEST 1 VIEW PICC OR CVAD PLACEMENT PORTABLE LOCATION: [facility] MEDICAL [facility]AG[facility] DATE: 06/26/2023 INDICATION: Line placement. [...] VIEW PICC OR CVAD PLACEMENT PORTABLE LOCATION: [facility] DATE: 06/26/2023 INDICATION: Line placement. COMPARISON: None. IMPRESSION: Left PICC with tip in the SVC in good location. Mild bibasilarinfiltrates. Degenerative changes in the right shoulder. Chip Samuel MD GENERAL IMAGING * SCAN-CARDIAC STRIP (06/26/2023 3:09 PM HYDRAULICS TEACHER) Scanner OTHER * (ABNORMAL) C-REACTIVE PROTEIN (06/26/2023 1:30 PM HYDRAULICS TEACHER) Only the most recent of2 resultswithin the time period is included. C-REACTIVE PROTEIN 2.1(H) <0.5 mg/dL 06/26/2023 1:58 PM [facility] Blood BLOOD SPECIMEN / Unknown Butterfly / Unknown 06/26/2023 1:30 PM HYDRAULICS TEACHER 06/26/2023 1:35 PM HYDRAULICS TEACHER Danagera Estevan Escudero MD CHEMISTRY [facility] SENDOUT INTERNAL ZIP [address] [place] [address] * (ABNORMAL) BASIC METABOLIC PANEL (06/26/2023 1:30 PM HYDRAULICS TEACHER) SODIUM 137 136 - 145 mmol/L 06/26/2023 2:02 PM [facility] POTASSIUM 4.0 3.5 - 5.1 mmol/L 06/26/2023 2:02 PM [facility] CHLORIDE 106 98 - 107 mmol/L 06/26/2023 2:02 PM [facility] CO2,TOTAL 28 22 - 29 mmol/L 06/26/2023 2:02 PM [facility] ANION GAP 3(L) 5 - 18 06/26/2023 2:02 PM [facility] GLUCOSE 96 70 - 99 mg/dL 06/26/2023 2:02 PM [facility] CALCIUM 8.4(L) 8.8 - 10.2 mg/dL 06/26/2023 2:02 PM [facility] BUN 11 8 - 23 mg/dL 06/26/2023 2:02 PM [facility] CREATININE 0.46(L) 0.70 - 1.20 mg/dL 06/26/2023 2:02 PM [facility] BUN/CREAT RATIO 24(H) 10 - 20 2:02 PM [facility] eGFR >90 >90 mL/min/1.7 3m2 06/26/2023 2:02 PM [facility] Comment:As of 2021, eG FR is calculated by the CKD-EPI creatinine equation without race adjustment. ??eGFR can be influenced by muscle mass, exercise, and diet. ??The reported eGFR is an estimation only and is only applicable if the renal function is stable. Blood BLOOD SPECIMEN / Unknown Butterfly / Unknown 06/26/2023 1:30 PM HYDRAULICS TEACHER 06/26/2023 1:35 PM HYDRAULICS TEACHER Cuba Escudero MD CHEMISTRY [facility] SENDOUT INTERNAL ZIP [phone] [place] [address] * SCAN-CARDIAC STRIP (06/26/2023 10:56 AM HYDRAULICS TEACHER) Scanner OTHER * SCAN-CARDIAC STRIP (06/25/2023 11:00 PM HYDRAULICS TEACHER) Scanner OTHER * SCAN-CARDIAC STRIP (06/25/2023 5:43 PM HYDRAULICS TEACHER) Scanner OTHER * SCAN-CARDIAC STRIP (06/25/2023 7:05 AM HYDRAULICS TEACHER) Scanner OTHER * SCAN-CARDIAC STRIP (06/25/2023 12:06 AM HYDRAULICS TEACHER) Scanner OTHER * SCAN-CARDIAC STRIP (06/24/2023 8:00 PM HYDRAULICS TEACHER) Scanner OTHER * SCAN-CARDIAC STRIP (06/24/2023 4:42 PM HYDRAULICS TEACHER) Scanner OTHER * SCAN-CARDIAC STRIP (06/23/2023 3:23 PM HYDRAULICS TEACHER) Scanner OTHER * SCAN-CARDIAC STRIP (06/23/2023 8:00 AM HYDRAULICS TEACHER) Scanner OTHER * SCAN-CARDIAC STRIP (06/23/2023 12:29 AM HYDRAULICS TEACHER) Scanner OTHER * (ABNORMAL) GLUCOSE METER (06/22/2023 9:10 PM HYDRAULICS TEACHER) Only the most recent of8 resultswithin the time period is included. [facility] Signature GLUCOSE METER 131(H) 65 - 100 mg/dL 06/22/2023 9:11 PM HYDRAULICS TEACHER [facility] Blood BLOOD SPECIMEN / Unknown 06/22/2023 9:10 PM HYDRAULICS TEACHER 06/22/2023 9:11 PM HYDRAULICS TEACHER Bruce Rothman [facility] CHEMISTRY [facility] SENDOUT INTERNAL ZIP [phone] [place] [id number] * SCAN-CARDIAC STRIP (06/22/2023 3:05 PM HYDRAULICS TEACHER) Scanner OTHER * BLOOD CULTURE (06/22/2023 1:30 PM HYDRAULICS TEACHER) Only the most recent of4 resultswithin the time period is included. [facility] CULTURE No Growth. 06/26/2023 6:40 PM HYDRAULICS TEACHER [facility] Blood BLOOD SPECIMEN / Unknown Venipuncture / Unknown 06/22/2023 1:30 PM HYDRAULICS TEACHER 06/22/2023 1:54 PM HYDRAULICS TEACHER Bruce Rothman [facility] MICROBIOLOGY Performing Organization Address City/[facility]/ZIP Co de Phone Number [facility] [address] [place] [address], * SCAN CORRESP-IMAGING (06/22/2023 9:43 AM HYDRAULICS TEACHER) Only the most recent of2 resultswithin the time period is included. Anatomical Region Laterality Modality Other Narrative 06/22/2023 9:43 AM HYDRAULICS TEACHER Ordered by an unspecified provider. Other Clinical Staff OTHER * SCAN-CARDIAC STRIP (06/22/2023 8:00 AM HYDRAULICS TEACHER) Scanner OTHER * (ABNORMAL) RED CELL MORPHOLOGY (06/22/2023 5:18 AM HYDRAULICS TEACHER) [facility] POLYCHROMASIA Slight 06/22/2023 6:40 AM HYDRAULICS TEACHER [facility] RBC COMMENT Present(A) RBC morphology appears normal, RBC morphology within normal limits for newborns. 06/22/2023 6:40 AM HYDRAULICS TEACHER [facility] Blood BLOOD SPECIMEN / Unknown Venipuncture / Unknown 06/22/2023 5:18 AM HYDRAULICS TEACHER 06/22/2023 5:29 AM HYDRAULICS TEACHER Bruce Rothman [facility] HEMATOLOGY [facility] SENDOUT INTERNAL ZIP [address] [place] [address] * (ABNORMAL) PLATELET ESTIMATE (06/22/2023 5:18 AM HYDRAULICS TEACHER) PLATELET ESTIMATE Decreased (A) Adequate, No estimate 06/22/2023 6:40 AM HYDRAULICS TEACHER [facility] Blood BLOOD SPECIMEN / Unknown Venipuncture / Unknown 06/22/2023 5:18 AM HYDRAULICS TEACHER 06/22/2023 5:29 AM HYDRAULICS TEACHER Bruce Rothman [facility] HEMATOLOGY Performing Organization Address City/[facility]/ZIP Co de Phone Number [facility] SENDOUT INTERNAL ZIP [phone] [place] [address] * (ABNORMAL) CBC W PLT NO DIFF (06/22/2023 5:18 AM HYDRAULICS TEACHER) WHITE BLOOD COUNT 8.3 4.5 - 11.0 thou/cu mm 06/22/2023 6:40 AM HYDRAULICS TEACHER [facility] RED BLOOD COUNT 3.82(L) 4.30 - 5.90 mil/cu mm 06/22/2023 6:40 AM [facility] HEMOGLOBIN 11.8(L) 13.5 - 17.5 g/dL 06/22/2023 6:40 AM [facility] HEMATOCRIT 35.9(L) 37.0 - 53.0 % 06/22/2023 6:40 AM [facility] MCV 94 80 - 100 fL 06/22/2023 6:40 AM [facility] MCH 30.9 26.0 - 34.0 pg 06/22/2023 6:40 AM [facility] MCHC 32.9 32.0 - 36.0 g/dL 06/22/2023 6:40 AM [facility] RDW 16.3(H) 11.5 - 15.5 % 06/22/2023 6:[address] [facility] PLATELET COUNT 91(L) 140 - 440 thou/cu mm 06/22/2023 6:40 AM HYDRAULICS TEACHER [facility] MPV 9.6 6.5 - 11.0 fL 06/22/2023 6:[address] [facility] NRBC 0.0 % 06/22/2023 6:40 AM HYDRAULICS TEACHER [facility] ABS NRBC 0.0 thou /cu mm 06/22/2023 6:[address] [facility] Blood BLOOD SPECIMEN / Unknown Venipuncture / Unknown 06/22/2023 5:18 AM HYDRAULICS TEACHER 06/22/2023 5:29 AM HYDRAULICS TEACHER Bruce APONTE HEMATOLOGY [facility] SENDOUT INTERNAL [facility] [id number] [place] [address] * SCAN-CARDIAC STRIP (06/21/2023 11:35 PM HYDRAULICS TEACHER) Scanner OTHER * SCAN-CARDIAC STRIP (06/21/2023 11:30 PM HYDRAULICS TEACHER) Scanner OTHER * URINE CULTURE (06/21/2023 5:44 PM HYDRAULICS TEACHER) CULTURE No growth (<1,000 CFU/mL) 06/22/2023 3:38 PM HYDRAULICS TEACHER [facility] Urine URINE SPECIMEN / Unknown Non-Blood / Unknown 06/21/2023 5:44 PM HYDRAULICS TEACHER 06/21/2023 5:52 PM HYDRAULICS TEACHER Bruce APONTE MICROBIOLOGY [facility] [address] [place] [address], * XR RETROGRADE PYELOGRAM W/WO KUB (06/21/2023 4:29 PM HYDRAULICS TEACHER) Anatomical Region Laterality Modality KIDNEYS, Abdomen Computed Radiog barry 06/21/2023 4:29 PM HYDRAULICS TEACHER Impressions 06/21/2023 5:50 PM HYDRAULICS TEACHER Fluoroscopic services were provided to the urology [...] for additional details. Narrative 06/21/2023 5:50 PM HYDRAULICS TEACHER For Patients: As a result of the Cures Act, medical imaging exams and procedure reports are released immediately into your electronic medical record. You may view this report before your referring provider. If you have questions, please contact your health care provider. EXAM: XR RETROGRADE PYELOGRAM W/WO KUB LOCATION: [facility] DATE: 06/21/2023 INDICATION: Eval suspected/known [...] EXAM: XR RETROGRADE PYELOGRAM W/WO KUB LOCATION: [facility] DATE: 06/21/2023 INDICATION: Eval suspected/known [...] TTE COMPLETE W CONTRAST (06/21/2023 12:15 PM HYDRAULICS TEACHER) EJECTION FRACTION 60-65% PROSOLV Anatomical Region Laterality Modality Ultrasound 06/21/2023 10:4 5 AM HYDRAULICS TEACHER Narrative 06/21/2023 3:32 PM [place] [address] Main: [email or web address] ? Transthoracic Echo Report MICHELLE KLEIN Hannyluli ID: [id number] Age: 62 : 1960 Ordering Provider: JUSTIN ALMENDAREZ Exam Date: 06/21/2023 10:45 Gender: M Restaurant Inspector: TUTU Height: 68 in BSA: 2.17 m?? BP: 101 / 67 Weight: 231 lbs BMI: 35.1 kg/m?? HR: 92 Location: Inpatient (Portable) Rhythm: Sinus Tachycardia Procedure Components: 2D imaging with contrast, Color Doppler, Spectral Doppler Indications: Dyspnea Technical Quality: Fair, Technically difficult study Contrast: Definity Constrast Dose (ml): 0.15 [facility]#: [id number] Final Conclusion 1. Normal left ventricular chamber [...] Aortic Root ZScore: 1.09 Fawad Alba MD [facility] Accredited Site (Electronically Signed) Final Date: 21 June 2023 15:31 ICD-10 Codes: 786.09 Procedure Note Fawad Alba MD - 06/21/2023 [place] [address] Main: [email or web address] Transthoracic Echo Report MICHELLE KLEIN Hannyluli ID: [id number] Age: 62 : 1960 Ordering Provider:JUSTIN ALMENDAREZ Exam Date: 06/21/2023 10:45 Gender: M Restaurant Inspector: TUTU Height: 68 in BSA: 2.17 m?? BP: 101 / 67 Weight: 231 lbs BMI: 35.1 kg/m?? HR: 92 Location: Inpatient (Portable) Rhythm: Sinus Tachycardia Procedure Components: 2D imaging with contrast, Color Doppler, SpectralDoppler Indications: Dyspnea Technical Quality: Fair, Technically difficult study Contrast: Definity Constrast Dose (ml): 0.15 [facility]#: [id number] Final Conclusion 1. Normal left ventricular chamber [...] Aortic Root ZScore: 1.09 Fawad Alba MD [facility] Accredited Site (Electronically Signed) Final Date: 21 June 2023 15:31 ICD-10 Codes: 786.09 Justin Almendarez MD ECHO ORD * SCAN-CARDIAC STRIP (06/21/2023 9:45 AM HYDRAULICS TEACHER) Scanner OTHER * (ABNORMAL) BLOOD CULTURE MULTIPLEX PCR (06/21/2023 9:20 AM HYDRAULICS TEACHER) Organism(s) Detected Staphylococcus aureus(AA) No organism targets detected., Invalid 3 10:20 AM HYDRAULICS TEACHER [facility] Resistance Gene(s) None detected None detected 3 10:20 AM HYDRAULICS TEACHER [facility] CTX-M (ESBL-resistance gene) N/A 3 10:20 AM HYDRAULICS TEACHER [facility] IMP (carbapenem-resistan ce gene) N/A NOT Detected, N/A 3 10:20 AM HYDRAULICS TEACHER [facility] KPC (carbapenem-resistan ce gene) N/A NOT Detected, N/A 3 10:20 AM HYDRAULICS TEACHER [facility] mcr-1 (colistin-resistance gene) N/A 3 10:20 AM HYDRAULICS TEACHER [facility] mecA/C (methicillin-resista nce gene) N/A 3 10:20 AM HYDRAULICS TEACHER [facility] mecA/C and MREJ (methicillin-resista nce gene) NOT Detected 3 10:20 AM HYDRAULICS TEACHER [facility] NDM (carbapenem-resistan ce gene) N/A NOT Detected, N/A 3 10:20 AM HYDRAULICS TEACHER [facility] OXA-48 like (carbapenem-resistan ce gene) N/A NOT Detected, N/A 3 10:20 AM HYDRAULICS TEACHER [facility] van A/B (vancomycin-resistan ce genes) N/A 3 10:20 AM HYDRAULICS TEACHER [facility] VIM (carbapenem-resistan ce gene) N/A NOT Detected, N/A 3 10:20 AM HYDRAULICS TEACHER [facility] Enterococcus faecalis NOT Detected 3 10:20 AM HYDRAULICS TEACHER [facility] Enterococcus faecium NOT Detected 3 10:20 AM HYDRAULICS TEACHER [facility] Listeria monocytogenes NOT Detected 3 10:20 AM HYDRAULICS TEACHER [facility] Staphylococcus Detected 3 10:20 AM HYDRAULICS TEACHER [facility] Staphlococcus aureus Detected 05/26 3 10:20 AM HYDRAULICS TEACHER [facility] Staphylococcus epidermidis NOT Detected 3 10:20 AM HYDRAULICS TEACHER [facility] Staphylococcus lugdunensis NOT Detected 3 10:20 AM HYDRAULICS TEACHER [facility] Streptococcus NOT Detected 3 10:20 AM HYDRAULICS TEACHER [facility] Streptococcus agalactiae (Group B) NOT Detected 3 10:20 AM HYDRAULICS TEACHER [facility][1] LABORATORY Streptococcus pneumoniae NOT Detected 3 10:20 AM HYDRAULICS TEACHER [facility][1] LABORATORY Streptococcus pyogenes (Group A) NOT Detected 3 10:20 AM HYDRAULICS TEACHER [facility]] LABORATORY Acinetobacter calcoaceticus-vannesa david complex NOT Detected 3 10:20 AM HYDRAULICS TEACHER [facility] LABOR[facility]ORY Enterobacteriaceae NOT Detected 05/26 3 10:20 AM HYDRAULICS TEACHER [facility] Enterobacter cloacae complex NOT Detected 3 10:20 AM HYDRAULICS TEACHER [facility] Escherichia coli NOT Detected 3 10:20 AM HYDRAULICS TEACHER [facility] LABOR[facility]ORY Klebsiella oxytoca NOT Detected 05/26 3 10:20 AM HYDRAULICS TEACHER [facility] Klebsiella pneumoniae group NOT Detected 3 10:20 AM HYDRAULICS TEACHER [facility] Proteus NOT Detected 3 10:20 AM HYDRAULICS TEACHER [facility] Serratia marcescens NOT Detected 3 10:20 AM HYDRAULICS TEACHER [facility] LAB[facility] Haemophilus influenzae NOT Detected 3 10:20 AM HYDRAULICS TEACHER [facility] LABOR[facility]ORY Neisseria meningitidis NOT Detected 3 10:20 AM HYDRAULICS TEACHER [facility] LAB[facility] Pseudomonas aeruginosa NOT Detected 3 10:20 AM HYDRAULICS TEACHER [facility] LAB[facility] Yuliana albicans NOT Detected 3 10:20 AM HYDRAULICS TEACHER [facility] LABOR[facility] Yuliana glabrata NOT Detected 3 10:20 AM HYDRAULICS TEACHER [facility] LAB[facility] Yuliana krusei NOT Detected 06/22/20 2 3 10:20 AM HYDRAULICS TEACHER [facility] LABOR[facility] Yuliana parapsilosis NOT Detected 3 10:20 AM HYDRAULICS TEACHER [facility] LAB[facility] Yuliana tropicalis NOT Detected 05/26 3 10:20 AM HYDRAULICS TEACHER [facility] LAB[facility] Bacteroides fragilis group NOT Detected 3 10:20 AM HYDRAULICS TEACHER [facility] LABORATORY Klebsiella aerogenes NOT Detected 3 10:20 AM HYDRAULICS TEACHER [facility] LAB[facility] Salmonella NOT Detected 3 10:20 AM HYDRAULICS TEACHER [facility] LAB[facility] Stenotrophomonas maltophilia NOT Detected 3 10:20 AM HYDRAULICS TEACHER [facility] LAB[facility] Yuliana auris NOT Detected 3 10:20 AM HYDRAULICS TEACHER [facility] LABOR[facility]ORY Cryptococcus neoformans/gattii NOT Detected 3 10:20 AM HYDRAULICS TEACHER [facility] LAB[facility] Blood BLOOD SPECIMEN / Unknown Venipuncture / Unknown 06/21/2023 9:20 AM HYDRAULICS TEACHER 06/21/2023 9:35 AM HYDRAULICS TEACHER Bruce APONTE MICROBIOLOGY [facility] [address] [place] [address], * LACTATE VENOUS (06/21/2023 9:20 AM HYDRAULICS TEACHER) LACTATE,VENOUS 1.5 0.5 - 2.0 mmol/L 06/21/2023 9:59 AM HYDRAULICS TEACHER [facility] Blood BLOOD SPECIMEN / Unknown Venipuncture / Unknown 06/21/2023 9:20 AM HYDRAULICS TEACHER 06/21/2023 9:29 AM HYDRAULICS TEACHER Bruce COOMBS CHEMISTRY [facility] SENDOUT INTERNAL ZIP [address] [place] [phone] * (ABNORMAL) PROCALCITONIN (06/21/2023 9:20 AM HYDRAULICS TEACHER) PROCALCITONIN 15.30(H) ng/ml 06/21/2023 10:06 AM HYDRAULICS TEACHER [facility] Blood BLOOD SPECIMEN / Unknown Venipuncture / Unknown 06/21/2023 9:20 AM HYDRAULICS TEACHER 06/21/2023 9:29 AM HYDRAULICS TEACHER Narrative [facility] - 06/21/2023 10:06 AM HYDRAULICS TEACHER Procalcitonin for initial assessment of Lower Respiratory [...] < 2 ng/mL are obtained. Bruce Rothman [facility] [place] [facility] [facility] SENDOUT INTERNAL ZIP [phone] [place] [address] * SCAN-CARDIAC STRIP (06/21/2023 9:17 AM HYDRAULICS TEACHER) Scanner OTHER * XR CHEST 1 VIEW PORTABLE (06/21/2023 5:51 AM HYDRAULICS TEACHER) Anatomical Region Laterality Modality HEART, THORAX, CHEST Computed Ra diography 06/21/2023 5:51 AM HYDRAULICS TEACHER Impressions 06/21/2023 7:05 AM HYDRAULICS TEACHER Vascular congestion with interstitial edema. Left basilar atelectasis/scarring. No pleural effusion. Normal heart size. Narrative 06/21/2023 7:05 AM HYDRAULICS TEACHER For Patients: As a result of the Cures Act, medical imaging exams and procedure reports are released immediately into your electronic medical record. You may view this report before your referring provider. If you have questions, please contact your health care provider. EXAM: XR CHEST 1 VIEW PORTABLE LOCATION: [facility] DATE: 06/21/2023 INDICATION: Shortness of breath COMPARISON: None. Procedure Note Juan Bhatia MD - 06/21/2023 For Patients: As a result of the Cures Act, medical imagingexams and procedure reports are released immediately into your electronicmedical record. You may view this report before your referring provider.If you have questions, please contact your health care provider. EXAM: XR CHEST 1 VIEW PORTABLE LOCATION: [facility] DATE: 06/21/2023 INDICATION: Shortness of breath COMPARISON: None. IMPRESSION: Vascular congestion with interstitial edema. Left basilaratelectasis/scarring. No pleural effusion. Normal heart size. Justin Almendarez MD GENERAL IMAGIN G * (ABNORMAL) PLATELET COUNT (06/21/2023 5:18 AM HYDRAULICS TEACHER) PLATELET COUNT 102(L) 140 - 440 thou/cu mm 06/21/2023 6:12 AM HYDRAULICS TEACHER [facility] MPV 9.0 6.5 - 11.0 fL 06/21/2023 6:12 AM HYDRAULICS TEACHER [facility] Blood BLOOD SPECIMEN / Unknown Venipuncture / Unknown 06/21/2023 5:18 AM HYDRAULICS TEACHER 06/21/2023 5:41 AM HYDRAULICS TEACHER Justin Almendarez MD HEMATOLOGY [facility] SENDOUT INTERNAL ZIP [phone] [place] [address] * (ABNORMAL) WHITE BLOOD COUNT (06/21/2023 5:18 AM HYDRAULICS TEACHER) WHITE BLOOD COUNT 16.4(H) 4.5 - 11.0 thou/cu mm 06/21/2023 8:44 AM HYDRAULICS TEACHER [facility] NRBC 0.0 % 06/21/2023 8:44 AM HYDRAULICS TEACHER [facility] ABS NRBC 0.0 thou /cu mm 06/21/2023 8:44 AM HYDRAULICS TEACHER [facility] Blood BLOOD SPECIMEN / Unknown Venipuncture / Unknown 06/21/2023 5:18 AM HYDRAULICS TEACHER 06/21/2023 5:41 AM HYDRAULICS TEACHER Bruce APONTE HEMATOLOGY Performing Organization Address City/[facility]/ZIP Co de Phone Number [facility] SENDOUT INTERNAL ZIP [address] [place] [phone] * (ABNORMAL) HEMOGLOBIN (06/21/2023 5:18 AM HYDRAULICS TEACHER) HEMOGLOBIN 12.5(L) 13.5 - 17.5 g/dL 06/21/2023 6:12 AM HYDRAULICS TEACHER [facility] MCV 93 80 - 100 fL 06/21/2023 6:12 AM HYDRAULICS TEACHER [facility] Blood BLOOD SPECIMEN / Unknown Venipuncture / Unknown 06/21/2023 5:18 AM HYDRAULICS TEACHER 06/21/2023 5:41 AM HYDRAULICS TEACHER Justin Almendarez MD HEMATOLOGY [facility] SENDOUT INTERNAL ZIP [phone] [place] [address] * SODIUM (06/21/2023 5:18 AM HYDRAULICS TEACHER) SODIUM 141 136 - 145 mmol/L 06/21/2023 8:53 AM HYDRAULICS TEACHER [facility] Blood BLOOD SPECIMEN / Unknown Venipuncture / Unknown 06/21/2023 5:18 AM HYDRAULICS TEACHER 06/21/2023 5:41 AM HYDRAULICS TEACHER Bruce APONTE CHEMISTRY [facility] SENDOUT INTERNAL ZIP [address] [place] [address] * POTASSIUM (06/21/2023 5:18 AM HYDRAULICS TEACHER) POTASSIUM 3.9 3.5 - 5.1 mmol/L 06/21/2023 8:53 AM HYDRAULICS TEACHER [facility] Blood BLOOD SPECIMEN / Unknown Venipuncture / Unknown 06/21/2023 5:18 AM HYDRAULICS TEACHER 06/21/2023 5:41 AM HYDRAULICS TEACHER Bruce APONTE CHEMISTRY Performing Organization Address [facility]/ZIP Co de Phone Number [facility] SENDOUT INTERNAL ZIP [phone] [place] [address] * CREATININE (06/21/2023 5:18 AM HYDRAULICS TEACHER) eGFR >90 >90 mL/min/1.7 3m2 06/21/2023 6:15 AM HYDRAULICS TEACHER [facility] Comment:As of 2021, eG FR is calculated by the CKD-EPI creatinine equation without race adjustment. ??eGFR can be influenced by muscle mass, exercise, and diet. ??The reported eGFR is an estimation only and is only applicable if the renal function is stable. CREATININE 0.93 0.70 - 1.20 mg/dL 06/21/2023 6:15 AM HYDRAULICS TEACHER [facility] Blood BLOOD SPECIMEN / Unknown Venipuncture / Unknown 06/21/2023 5:18 AM HYDRAULICS TEACHER 06/21/2023 5:41 AM HYDRAULICS TEACHER Justin Almendarez MD CHEMISTRY [facility] SENDOUT INTERNAL ZIP [phone] [place] [address] * (ABNORMAL) PRO-BNP (06/21/2023 5:18 AM HYDRAULICS TEACHER) PRO-BNP 395(H) <125 pg/mL 06/21/2023 6:17 AM HYDRAULICS TEACHER [facility] Blood BLOOD SPECIMEN / Unknown Venipuncture / Unknown 06/21/2023 5:18 AM HYDRAULICS TEACHER 06/21/2023 5:41 AM HYDRAULICS TEACHER Narrative [facility] - 06/21/2023 6:17 AM HYDRAULICS TEACHER The following cut-points have been suggested for [...] Almendarez MD SEND OUTS Performing Organization Address [facility] Co de Phone Number [facility] SENDOUT [place]NAL ZIP [phone] [place] [address] * MAGNESIUM (06/21/2023 5:18 AM HYDRAULICS TEACHER) Pathologist [facility] MAGNESIUM 1.6 1.6 - 2.4 mg/dL 06/21/2023 10:12 AM HYDRAULICS TEACHER [facility] Blood BLOOD SPECIMEN / Unknown Venipuncture / Unknown 06/21/2023 5:18 AM HYDRAULICS TEACHER 06/21/2023 5:41 AM HYDRAULICS TEACHER Bruce APONTE CHEMISTRY Performing Organization Address [facility] de Phone Number [facility] SENDOUT INTERNAL ZIP [phone] [place] [address] * (ABNORMAL) PROTIME-INR (06/21/2023 2:51 AM HYDRAULICS TEACHER) INR 1.4(H) <1.3 06/21/2023 3:24 AM HYDRAULICS TEACHER [facility] PROTIME 15.3(H) 10.3 - 12.3 sec 06/21/2023 3:24 AM [facility] Blood BLOOD SPECIMEN / Unknown Venipuncture / Unknown 06/21/2023 2:51 AM HYDRAULICS TEACHER 06/21/2023 3:01 AM HYDRAULICS TEACHER Narrative [facility] - 06/21/2023 3:24 AM HYDRAULICS TEACHER ?Therapeutic Range 2.0-3.0 for most anticoagulated patients [...] is on [facility]. Justin Almendarez MD HEMATOLOGY [facility] SENDOUT [place]NAL ZIP [address] [address] [place] [address] * SCAN-CARDIAC STRIP (06/20/2023 11:59 PM HYDRAULICS TEACHER) Scanner OTHER from Last 3 Months Advance Directives Latest Code Status on File Code Status Date Activated Date Inactivated Comments DNR 06/21/2023 1:43 AM 06/27/2023 6:20 PM Question Answer Comments Code Status Discussion: Reviewed Preferences Code Status History Code Status Date Activated Date Inactivated Comments Full Code 06/21/2023 12:05 AM 06/21/2023 1:43 AM Question Answer Comments Code Status Discussion: Reviewed Preferences Care Teams Rotary Driller Helper Relationship Specialty Start Date End Date [place] [address] PCP - General Physician Veterinary Practice Manager 06/23/23 [place] [id number] [address] [address] 06/26/23
[2023-07-06 12:30] LABS: Bacteria Urine Few; RBC Urine >100 (0-2); WBC Urine 50-100 (0-5)
[2023-07-06 12:41] LABS: Lactate* 1.8 mmol/L (0.5-1.9)
[2023-07-06 12:42] LABS: Basophils Absolute Auto 0.06 K/uL (0.00-0.30); Eosinophils Percent Auto 3.4 % (0.0-7.0); Hematocrit 35.5 % (37.0-53.0); Hemoglobin* 11.6 gm/dL (13.5-17.5); Immature Granulocytes Abs Auto 0.01 K/uL (0.00-0.30); Immature Granulocytes Pct Auto 0.2 %; Lymphocytes Absolute Auto 1.51 K/uL (0.90-2.90); Lymphocytes Percent Auto 25.5 % (20-44); Mean Corpuscular HGB Conc 33 gm/dL (32-36); Mean Corpuscular Hemoglobin 31 pg (26-34); Mean Corpuscular Volume 95 fL (80-100); Neutrophils Absolute Auto 3.44 K/uL (1.7-7.0); Neutrophils Percent Auto 57.9 % (42.0-72.0); Platelet Count* 163 K/uL (140-440); RDW Coefficient of Variation % 16.5 % (11.5-15.5); Red Blood Count 3.74 m/uL (4.30-5.90); White Blood Count* 5.93 K/uL (4.50-11.00)
[2023-07-06 12:43] LABS: Slide Review Reflex No
[2023-07-06] MEDS: 0.9 % SODIUM CHLORIDE 1000 ml 1,000 ML IV (12:49)
[2023-07-06 12:58] LABS: Chloride* 110 mmol/L (96-114); Potassium* 4.2 mmol/L (3.6-5.1); Sodium* 140 mmol/L (135-149)
[2023-07-06 12:59] LABS: Albumin* 2.5 g/dL (3.3-5.0)
[2023-07-06 13:00] LABS: Creatinine* 0.5 mg/dL (0.5-1.5); Estimated Glomerular Filt Rate 115 ml/min
[2023-07-06 13:01] LABS: Anion Gap 7 mEq/L (7-15); Blood Urea Nitrogen* 20 mg/dL (7-30); Carbon Dioxide* 23 mmol/L (20-32); Glucose* 138 mg/dL (60-115)
[2023-07-06 13:02] LABS: Alanine Aminotransferase* 32 U/L (4-50); Alkaline Phosphatase* 93 U/L (40-150); Aspartate Amino Transferase* 56 U/L (12-35); Bilirubin Direct* 0.2 mg/dL (0.0-0.5); Bilirubin Total* 0.5 mg/dL (0.1-1.5); Magnesium* 1.9 mg/dL (1.5-2.6); Total Protein* 6.9 g/dL (6.0-8.3)
[2023-07-06 13:04] LABS: C Reactive Protein* 1.3 mg/dL (0.5-1.0)
[2023-07-06 13:07] LABS: Ethanol* < 0.01 % (0.01-0.03)
--- NOTE | 2023-07-06 13:13 | CRLHL7_ITS ---
For Patients: As a result of the Century Cures Act, medical imaging exams and procedure reports are released immediately into your electronic medical record. You may view this report before your referring provider. If you have questions, please contact your health care provider. INDICATION: EVAL FOR PNEUMONIA AND PICC LINE PLACEMENT TECHNIQUE: Chest 1 views. COMPARISON: None. FINDINGS/IMPRESSION: Left upper extremity PICC with tip overlying the expected position of the proximal SVC. The cardiomediastinal silhouette is within normal limits given portable technique. There is mild pulmonary vascular congestion without focal airspace consolidation, pleural effusion, or pneumothorax. No displaced fractures. Degenerative changes of the shoulders bilaterally, right greater than left. Dictated by Ulysses Luna MD @ 07/06/2023 2:07:04 PM (Electronically Signed)
[2023-07-06 13:16] LABS: Amphetamine Screen Urine POSITIVE (Negative); Barbiturate Screen Urine Negative (Negative); Benzodiazepines Screen Urine Negative (Negative); Cannabinoid Screen Urine POSITIVE (Negative); Cocaine Screen Urine Negative (Negative); Methadone Screen Urine Negative (Negative); Methamphetamines Screen Urine POSITIVE (Negative); Opiate Screen Urine Negative (Negative); Oxycodone Screen Urine Negative (Negative); Phencyclidine Screen Urine Negative (Negative); Tricyclic Antidepressant Urine Negative (Negative)
[2023-07-06] MEDS: CEFAZOLIN 2 GM in 0.9 % SODIUM CHLORIDE Mini-bag 100 ML IVPB (14:25)
--- NOTE | 2023-07-06 14:55 | ED.NURSE ---
Pt ambulated down byrd and back to room. Pt tolerated ambulation well, walked at a brisk pace. notified.
--- NOTE | 2023-07-06 17:11 | PC.SOCIAL ---
Discharge planning: Met with pt regarding discharge plan. Pt insists he is going home today and that he will not consider staying in the hospital until home health care for home IV abx can be arranged or until transportation can be arranged for out-pt IV abx. Pt is aware that [facility] has finished their care and are unwilling to continue to provide care at home. Pt is aware of option to come into the hospital for once a day IV abx but states he does not have a ride. Pt has Medical Assistance but is unwilling to stay for a few days until [place] transportation can be arranged. Pt gave permission to social media sr strategy manager to call his sister Noemy Sandoval ([phone]) to ask if she will provide daily transportation for him to and from the hospital for IV abx. Pt states she works and does not think she will be willing to do this. Called sister and left message requesting she call back to the ED regarding discharge planning. Called Isidoro Ridambrosio as pt was listed as having [employer] [place] on his face sheet, to see if daily medically necessary [place] covered transportation can be arranged for IV abx at the hospital. [employer] stated pt's insurance has changed on 06/25/23 and is now straight Medical Assistance. They transferred social media sr strategy manager to the Medical Assistance transportation line. Spoke with marketing representative who looked pt up and stated that since he lives in [place], social media sr strategy manager needs to call [place] Historical Society Director to arrange transportation and that [place] is a non-covered county for their services. Called Hermelinda Aparicio at [facility] [place] [facility] who states she does not know anything about [facility] arranging their own medical transportation and that it is too late in the day to locate anyone at [facility] to ask about this. Pt's new Medical Assistance ID number as of 06/25/23 is ID#[id number]. Batool Aparicio is aware pt will likely be discharged home today and requested Medical Chart notes be sent on Sunday as she has an open case and will be following up with pt. copy worker to send medical chart notes when completed to Hermelinda Aparicio.
--- NOTE | 2023-07-06 17:26 | ED.NURSE ---
and ASHVIN Serrano in room for PICC removal at MD Mcdowell' direction. ASHVIN Serrano DC'd PICC line per protocol. PICC measured by leader writer after removal, 47cm. Catheter assessed by and MD Mcdowell and appears intact. Per documentation from PICC placement, original catheter length was also 47cm.
[2023-07-06] MEDS: cefTRIAXone 1 GM in 0.9 % SODIUM CHLORIDE Mini-bag 100 ML IVPB (17:30)
--- NOTE | 2023-07-16 11:05 | ONC.NURNOTE ---
Spoke with Rosa at [facility]. She stated it is unclear if patient still has a PICC line in at this time. Per the ER note, PICC line was removed on 07/06/23. Faxed this note to Rosa along with the ambulance reports. Asked if patient got a PICC line placed elsewhere and she stated that she was not aware of that. Rosa stated we can remove him from schedule since it appears his PICC line has been removed.
== END 2023-07-06 18:41 | disposition home or self-care (01) ==
PROVIDERS: Emergency Provider Family Medicine
DX: N39.0 Urinary tract infection, site not specified (principal); R78.81 Bacteremia
CPT/HCPCS: 36415; 71045; 80048; 80076; 80306; 81001; 82077; 83605; 83735; 85025; 86140; 87040; 87086; 87186; 96365; 96375; 99284; 99285; J0690; J0696; J7030

== ENCOUNTER 2024-01-11 10:28 | Outpatient (CLI) | payer BC, SELFPAY ==
--- OUTSIDE RECORDS SUMMARY | 2024-01-13 01:14 | XMS_ITS | Clinical Summary ---
Author Organization [employer] [facility] Address [place], [place] [address] Care Team Providers Care Attendant Arcade Name Role Phone Nat Mccoy Primary Care Provider [phone] Allergies No known active allergies Medications Medication Sig Dispensed Refills Start Date End Date Status acetaminophen (TYLENOL) 325 mg tabletIndications: Septic shock due to urinary tract infection (HC) Take 2 Tablets (650 mg) by mouth every 4 hours if needed for Pain or Temp > (Specify) (Temp >100.4 F (38 C)). Max acetaminophen dose: 4000mg in 24 hrs. 06/27/2023 Active pantoprazole (PROTONIX) 40 mg delayed-release tabletIndications: Gastroesophageal reflux disease without esophagitis Take 1 Tablet (40 mg) by mouth once daily before a meal. 30 Tablet 06/28/2023 Active Active Problems Problem Noted Date Diagnosed Date [...] Alcohol dependence 08/12/2012 Anxiety state, unspecified 03/15/2010 Immunizations Name Administration Dates Next Due Tdap [...] Comments Blood Pressure 130/62 07/05/2023 11:15 AM RAILROAD DESIGN CONSULTANT Pulse 94 07/05/2023 11:15 AM RAILROAD DESIGN CONSULTANT Temperature 36.9 ??C (98.5 ??F) 07/05/2023 1 1:15 AM RAILROAD DESIGN CONSULTANT Respiratory Rate 22 07/05/2023 11:1 5 AM RAILROAD DESIGN CONSULTANT Oxygen Saturation 94% 07/05/2023 11: 15 AM RAILROAD DESIGN CONSULTANT RA Inhaled Oxygen Concentration - - Weight 106.3 kg (234 lb 6.4 oz) 06/24/2023 3:46 AM RAILROAD DESIGN CONSULTANT Height 172.7 cm (5' 8) 06/20/2023 11:4 5 PM RAILROAD DESIGN CONSULTANT Body Mass Index 35.64 06/20/2023 11:45 PM RAILROAD DESIGN CONSULTANT Plan of Treatment Health Maintenance Due Date Last Done Comments Pneumococcal series for age 6-64 (1 of 2 - PCV) 1966 Depression screening for age 12+ 1972 HIV for age 15-65 12/14/1975 BMI (ht and wt on same day) for age 18+ 1978 Colonoscopy through age 75 2005 Lipids for age 45-75 2005 Zoster (shingles) series for age 50+ (1 of 2) 2010 Tetanus booster 12/23/2013 12/24/2003 (Comp leted outside of [facility]), 12/24/2003 COVID-19 vaccine series ( season) 2023 Influenza for age 50-64 02/24/2024 Tdap Completed 12/24/2003 Hepatitis C screening for age 18-79 Completed 08/12, 08/12/2012 Medical Devices Implanted Type Area Corporate Travel Consultant Device Identifier Shelf Expiration Date Model / Serial / Lot Stent Uret [id number] Percuflex Hydroplus - [id number] Implanted:Qty: 1 on 06/21/2023 by Chao Villagomez MD at [facility] Right: Ureter [facility] Urology 02/09/2026 [id number] / / [id number] Procedures Procedure Name Priority Date/Time Associated Diagnosis Comments HCV RNA QUANT Routine 08/12/2012 3:46 PM RAILROAD DESIGN CONSULTANT Cirrhosis Diarrhea from Last 3 Months or Most Recently Relevant to Health Maintenance Results * (ABNORMAL) HCV RNA RT-PCR,QNT [id number] (08/12/2012 3:46 PM RAILROAD DESIGN CONSULTANT) HCV RNA RT-PCR Detected( A) [facility] NUMBER DETECTED 1,240,000 IU/mL [facility] SOURCE Blood [facility] Blood specimen (specimen) BLOOD SPECIMEN / Unknown 08/12/2012 3:46 PM RAILROAD DESIGN CONSULTANT 08/12/2012 3:12 PM RAILROAD DESIGN CONSULTANT Narrative [facility] - 08/13/2012 3:47 PM RAILROAD DESIGN CONSULTANT Method: Griselda Taqman HCV Test Shaji Cantu MD SEND OUTS [facility] [place]NAL ZIP [phone] [facility] [place] [address] from Last 3 Months or Most Recently Relevant to Health Maintenance Advance Directives * DNR (Latest Code Status on File) Date Activated Date Inactivated Comments 06/21/2023 1:43 AM 06/27/2023 6:20 PM Question Answer Comments Code Status Discussion: Reviewed Preferences * Full Code Date Activated Date Inactivated Comments 06/21/2023 12:05 AM 06/21/2023 1:43 AM Question Answer Comments Code Status Discussion: Reviewed Preferences Care Teams Attendant Arcade Relationship Specialty Start Date End Date Nat Mccoy [place] [address] PCP - General Physician Franchise Sales Representative 06/23/23
== END 2024-01-11 10:29 | disposition home or self-care (01) ==
LOC: AMB 01-13 01:13
PROVIDERS: Visit Provider Family Medicine
DX: R53.1 Weakness (principal); R18.8 Other ascites